=== PATIENT | male | born 1960 | race Caucasian/White ===

== ENCOUNTER 2016-12-07 01:42 | Emergency (ER) | payer MEDICARE, MEDICAID ==
--- NOTE | 2016-12-07 02:45 | ERNOTE ---
Medical Problem HPI - Narrative Date of Service: 12/07/16 - General Chief Complaint: Screening, Blood Pressure Time Seen by Provider: 12/07/16 02:44 Source: patient Exam Limitations: no limitations - Immun/Allergies/Home Medications Immunizations: IMMUNIZATION HX Immunizations Up to Date Yes History of Influenza Vaccine Yes Allergies/Adverse Reactions: Allergies ascorbic acid [From Tart Talbot] Allergy (Intermediate, Verified 03/07/16 22:37) Hives Great big boils all over his body Celery Seed [From Tart Talbot] Allergy (Intermediate, Verified 03/07/16 22:37) Hives Great big boils all over his body Celery Seed Extract [From Tart Talbot] Allergy (Intermediate, Verified 03/07/16 22:37) Hives Great big boils all over his body grape seed extract [From Tart Talbot] Allergy (Intermediate, Verified 03/07/16 22:37) Hives Great big boils all over his body Sour Talbot Extract [From Tart Talbot] Allergy (Intermediate, Verified 03/07/16 22:37) Hives Great big boils all over his body cherries Allergy (Severe, Uncoded 03/07/16 22:37) Other Home Medications: HOME MEDICATIONS Aspirin 325 mg PO DAILY 06/14/14 [Last Taken 06/14/14 18:15] Ferrous Sulfate [Iron] 325 mg PO DAILY 06/14/14 [Last Taken Unknown] Insulin Glargine,Hum.rec.anlog [Lantus] 80 unit SQ BID 06/14/14 [Last Taken ] Lisinopril [Zestril] 5 mg PO DAILY 06/14/14 [Last Taken 06/14/14] Metoprolol Succinate [Toprol Xl] 100 mg PO DAILY 06/14/14 [Last Taken Unknown] Nitroglycerin [Nitrostat] 0.4 mg SL Q5MIN PRN 06/14/14 [Last Taken 06/14/14 19: 00] Pantoprazole Sodium [Protonix] 40 mg PO BID 06/14/14 [Last Taken Unknown] amLODIPine BESYLATE [Norvasc] 10 mg PO DAILY 06/14/14 [Last Taken Unknown] [place] 3/Dha/Epa/Vitamin D3 [[place]-3 + Vitamin D3 Softgel] 1 each PO DAILY [Last Taken Unknown] Insulin NPH Hum/Reg Insulin Hm [Humulin 70-30] 70 unit SC TID 10/17/15 [Last Taken Unknown] oxyCODONE HCL/ACETAMINOPHEN [Percocet 5 MG/325 MG] 2 tab PO QID PRN 03/07/16 [ Last Taken Unknown] Ezetimibe [Zetia] 10 mg PO DAILY 12/07/16 [Last Taken Unknown] - History of Present History Narrative: Presents with c/o elevated blood pressure. Pt claims his blood pressure was 217 /90 at home. He called EMS out of concern. Denies any chest pain, but claims he felt very clammy. Review of Systems - Review of Systems Constitutional: Present: diaphoresis EYE: Present: no symptoms reported ENT: Present: no symptoms reported Respiratory: Present: no symptoms reported Cardiology: Present: no symptoms reported Gastrointestinal/Abdominal: Present: no symptoms reported Genitourinary: Present: no symptoms reported Musculoskeletal: Present: no symptoms reported Neurological: Present: no symptoms reported Endocrine: Present: no symptoms reported Hematologic/Lymphatic: Present: no symptoms reported Psych: Present: no symptoms reported All Other Systems: All systems neg except as marked - Patient's Past Medical History Patient History - Medical: Diabetes Type 2 Insulin Dependent, GERD, Obesity, Renal Failure Patient History - Cardiac/Respiratory: CHF, Hypertension Patient History - Cancer: No Hx of Cancer Patient History - Surgical Procedures: Colonoscopy, Other Patient History - Other: None - Family History Mother Family History - Medical: , Diabetes Type 2 Father Family History - Medical: , Diabetes Type 2 - Social History Living Situations: alone Abuse History: No History of abuse Psych History: No pertinent hx Does anyone smoke in the home?: Yes Smoking Status: Current every day smoker Have you smoked in the past 12 months: Yes Alcohol Use: none Drug Use: none - Immunizations Immunizations Up to Date: Yes History of Influenza Vaccine: Yes Physical Exam - Physical Exam General Appearance: Present: wd/wn, alert, no apparent distress, obese Neck: Present: normal inspection, nontender Respiratory: Present: no respiratory distress, normal breath sounds Cardiovascular/Chest: Present: regular rate, rhythm, no murmur, normal peripheral pulses Gastrointestinal/Abdominal: Present: normal bowel sounds, nontender, nondistended, soft, no organomegaly Neurological Exam: Present: oriented, normal mood/affect, no motor/sensory deficits Skin Exam: Present: normal color, warm/dry ED Progress - Results and Orders Patient's Lab Results:: I have reviewed the patient's lab results. - Vital Signs Patient's Vital Signs:: I have reviewed the patient's vital signs. Vital Signs: Vital Signs 12/07/16 12/07/16 01:47 02:06 Temperature 36.3 C L Pulse Rate 80 Respiratory 16 Rate Blood Pressure 176/84 176/84 O2 Sat by Pulse 95 Oximetry - Progress/Reassessment Chief Complaint: Screening, Blood Pressure Progress:: Improved Departure - Departure Clinical Impression: Essential hypertension Disposition: Home self-care Condition: Good Instructions: Hypertension, [id number] Referrals: Dwaine Darby MD [Primary Care Provider] -
[2016-12-07 03:21] LABS: Hematocrit 37.6 % (42.0-52.0); Hemoglobin 11.9 gm/dL (13.5-18.0); Mean Corpuscular Hemoglobin 28.5 pg (27-31); Mean Corpuscular Hgb Conc 31.6 g/dl (32-36); Mean Platelet Volume 9.9 fl (6.0-9.5); Neutrophil # 8.8 K/mm3 (1.3-6.0); Platelet Count 274 K/mm3 (150-450); Red Blood Count 4.18 M/mm3 (4.7-6.0); Red Cell Distribution Width 14.5 % (11.5-14.0)
[2016-12-07 03:39] LABS: ALT 18 U/L (19-67); AST 9 U/L (0-48); Albumin * 3.4 gm/dl (3.4-5.0); Alkaline Phosphatase * 118 U/L (50-170); Anion Gap 16.8 mmol/L (6.8-13.8); BUN/Creatinine Ratio 19.5 (9.0-21.6); Bilirubin, Total 0.2 mg/dL (0.0-1.1); Blood Urea Nitrogen 39 mg/dL (6-23); Ca. Corrected For Albumin 8.8 mg/dL (8.4-10.2); Calcium * 8.6 mg/dL (7.9-10.9); Carbon Dioxide 23.2 mmol/L (24-32.6); Chloride 102 mmol/L (97-106); Glucose * 301 mg/dL (70-110); Sodium 137 mmol/L (132-142); Total Protein 7.7 gm/dL (6.2-8.2)
[2016-12-07 03:40] LABS: Troponin I Less than 0.017 ng/ml (0.00-0.10)
--- OUTSIDE RECORDS SUMMARY | 2016-12-07 04:00 | XMS REPORT | Continuity of Care Document ---
:1960 Author Organization [facility] ([facility]) Address [address] [place] [address] Phone [phone] Care Team Providers Name Role Phone Dwaine Mejia Primary Care Provider [phone] Source Comments This disclosure is being made pursuant to the Care Everywhere program, applicable federal and state laws, and may not contain all informaitonavailable regarding this patient.[facility] ([facility]) Active Allergies and Adverse Reactions Allergen Noted Date Severity Reactions Comments [place] 03/14/2016 Urticaria (Hives) Current Medications Prescription Sig. Disp. Refills Start Date End Date Status amLODIPine 10 mg tablet Take 1 Tab by mouth 09/29/2013 Active daily aspirin 325 mg EC Take 1 Tab by mouth 11/25/2012 Active tablet daily furosemide (LASIX) 40 Take 1 Tab by mouth 2 11/14/2014 Active mg tablet times daily insulin glargine inject by 11/25/2012 Active (LANTUS) 100 unit/mL subcutaneous route as injection vial per insulin protocol ferrous sulfate (Iron 03/31/2013 Active (Ferrous Sulfate)) 325 mg (65 mg iron) tablet lisinopril 5 mg tablet Take 1 Tab by mouth 11/14/2014 Active daily metoPROLol succinate Take 1 Tab by mouth 12/12/2014 Active 100 mg XL tablet daily insulin nph-regular inject by 11/25/2012 Active (NovoLIN 70/30) 100 subcutaneous route as unit/mL injection vial per insulin protocol pantoprazole 40 mg EC Take 1 Tab by mouth 09/29/2013 Active tablet daily ranitidine 150 mg Take 1 Tab by mouth 2 09/29/2013 Active tablet times daily ergocalciferol (VITAMIN take 1 capsule by 03/31/2013 Active D2) 50,000 unit capsule oral route every day multivitamin with Take 1 tablet by Active minerals tablet mouth daily. nitroglycerin 0.[address] 0.4 mg under Active tablet the tongue every 5 minutes as needed. Maximum of 3 tablets in 15 minutes. omega-3 fatty acids 1 Take 2 g by mouth 2 Active gram capsule times daily. oxyCODONE-acetaminophen Take 1 tablet by Active 5-325 mg per tablet mouth every 4 hours as needed. Do NOT exceed 4000 mg of acetaminophen per 24 hours. acetaminophen 325 mg Take 325 mg by mouth Active tablet every 4 hours as needed. cholecalciferol Take 1,000 Units by Active (VITAMIN D3) 1,000 unit mouth daily. capsule ezetimibe (ZETIA) 10 mg Take 10 mg by mouth Active tablet daily. 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 Right Eye Left Eye Time To Recurrence: Time To Recurrence: Date VA (D cc) CMT Status Procedure VA (D cc) CMT Status Procedure Cmts 03/14/2016 20/20 cc 20/400 cc Ozurdex "[id number]. Also gentamicin ophthalmic solution OS 04/18/2016 20/25 cc 20/70-2 cc Avastin [id number] 05/23/2016 20/20-1 cc 20/60-2 cc Avastin [id number] 07/04/2016 20/25 +2 cc 20/70-1 +1 cc Avastin [id number] 08/07/2016 20/25-2 +3 cc 20/100 -1 cc Avastin [id number] 09/04/2016 20/30-2 +2 cc 20/100 -1 cc Avastin [id number] 10/03/2016 20/40-1 +2 cc 20/125 -1 cc Avastin [id number] 10/31/2016 20/60+1 cc Avastin [id number] 20/200 cc Eylea [id number] 11/28/2016 20/50-1 cc Avastin [id number] 20/400 cc Eylea [id number] IMO Import Utility Benign essential HTN 09/28/2014 Most Recent Encounters Date Type Specialty Providers Description 11/28/2016 Office Visit Ophthalmology - Chief Comp: Patient Specialty Reported Reason For Visit 11/28/2016 Office Visit Ophthalmology - Default, Other Dx: Diabetic macular Specialty Billg - Defo edema of both eyes with Simeon Elizondo moderate MD nonproliferative retinopathy associated with type 2 diabetes mellitus (Primary Dx) 10/31/2016 Office Visit Ophthalmology - Chief Comp: Patient Specialty Reported Reason For Visit 10/31/2016 Office Visit Ophthalmology - Sunday Lee, Dx: Diabetic macular Specialty MD edema of both eyes with moderate nonproliferative retinopathy associated with type 2 diabetes mellitus (Primary Dx) 10/03/2016 Office Visit Ophthalmology - Chief Comp: Patient Specialty Reported Reason For Visit 10/03/2016 Office Visit Ophthalmology - Default, Other Dx: Diabetic macular Specialty Billg - Defo edema of both eyes with Rita Fernando moderate MD nonproliferative retinopathy associated with type 2 diabetes mellitus (Primary Dx) Social History Tobacco Use Types Packs/Day Years Used Date Current Every Day Smoker Cigarettes 1.5 47 Smokeless Tobacco: Never Used Tobacco Cessation:Ready to Quit: No; Counseling Given: Yes Comments: Alcohol Use Drinks/Week oz/Week Comments No Plan of Care Date Type Specialty Providers Description 12/26/2016 Appointment Ophthalmology - Default, Other Chief Comp: Patient Specialty Billg - Defo Reported Reason For [address] [place] [address] [phone] (Fax) Health Maintenance Due Date Last Done Comments HCV Screening 1960 Hepatitis B Vaccine (1 of 3 - 1960 Primary Series) Tdap Vaccine 1969 DIABETIC: Cholesterol 1976 Diabetic: Hdl 1976 DIABETIC: Hemoglobin A1C 1976 Diabetic: Ldl 1976 DIABETIC: Microalbumin 1976 DIABETIC: Triglycerides 1976 MMR Vaccine 1976 Td Vaccine 1976 Pneumococcal Vaccine (1 of 1 1977 - PPSV23) Colonoscopy 12/26/2008 Prostate Cancer Screening 2008 DIABETIC: Foot Exam 04/25/2015 Influenza Vaccine: Seasonal 05/20/2016 (#1) DIABETIC: Retinal Eye Exam 11/28/2017 11/28/2016, Additional history exists 10/31/2016, 10/03/2016 Results from Last 3 Months EYE PROC - INTRAVITREAL INJECTION (11/28/2016 1:43 PM)Only the most recent of3 resultswithin the time period is included. Simeon Carballo MD 11/28/20161:43 PM [facility]itreous Injection Clinic Current Date: 11/28/2016 Subjective: Patel Blackwood is a 55 y.o. 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 History of Present Illness: 55 y.o. Male returns to injection clinic for continued treatment of DM2 with severe NPDR and DME s/p Avastin right eye; Eylea left eye Pt is unaware of any vision changes since last visit. Denies any eye pain, flashes or judith aters. 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 with type 2 diabetes mellitus 04/25/2015 Benign essential HTN 09/28/2014 Injection History: Refuses lid speculum Injection and Visual Acuity Log Date Injection OD VA sc VA cc Injection OS VA sc VA cc 11/28/2016 Yzhzzwl40/50-1 20/400 10/31/2016 Gaghqja74/60+1 20/200 10/03/2016 20/40-1 +2 20/125 -1 09/04/2016 20/30-2 +2 20/100 -1 08/07/2016 20/25-2 +3 20/100 -1 07/04/2016 20/25 +2 20/70-1 +1 05/23/2016 20/20-1 20/60-2 04/18/2016 20/25 20/70-2 03/28/2016 20/20-2 20/50-2 03/14/2016 20/20 20/400 Review of Systems: Negative except per HPI Objective: Base Eye Exam Visual Acuity (Snellen - Linear) Right Left Dist cc 20/50-1 20/400 Dist ph cc 20/40+1 NI Correction:Glasses Tonometry (Tonopen, 12:48 PM) Right Left Pressure 18 16 Neuro/Psych Oriented x3:Yes Mood/Affect:Normal Dilation Both eyes:1.0% Mydriacyl, 2.5% Phenylephrine @ 12:49 PM Slit Lamp and Fundus Exam Fundus Exam Right Left Disc no NVD no NVD C/D Ratio 0.3 0.3 Macula exudates in star, DBHs, mild central thickening Dense exudative ring, DBHs, diffuse thickening and SRF Vessels microvascular changes, tortuosity tortuosity, early venous beading Oct Macula 11/28/2016 OCT OD: CMT 474(486). Stage 1-2 PVD, 2+ central cysts w/ IRHF, stable, noSRF.OS: CMT 348 (320). Stage 1 PVD, temporal cysts extending into fovea w/IRHF, No SRF. Assessment / Plan: 1. DME, Severe NPDR from DM2, on insulin OD: First injection Avastin 10/31/16 (4w) - VA improved, stable OCT findings OS: last Ozurdex 03/14/16 ozurdex -OS bevacizumab (Avastin) last 10/03/2016 - first Eylea OS 10/31/16 (4w) - VA decreased (subjectively improved), stable to slightly worse OCT findings) 2. Ph[place] OU -observe Plan Today OD bevacizumab (Avastin), Eylea OS RTC 4-5wks injection clinic x2 more, then back to Dr. Lee Staff Involved Resident/Fellow without Staff (non-primary care) PROCEDURE: Intravitreal injection Medication Injected: Intravitreal injection of 2mg Eylea left eye and 1.25 mg Avastin right eye. 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 I was present for the entire procedure. Simeon Elizondo MD Vitreoretinal Surgery Fellow Department of Ophthalmology [facility] OCT MACULA (11/28/2016 1:04 PM)Only the most recent of2 resultswithin the time period is included. Narrative OCT OD: CMT 474(486). Stage 1-2 PVD, 2+ central cysts w/ IRHF, stable, no SRF. OS: CMT 348 (320). Stage 1 PVD, temporal cysts extending into fovea w/ IRHF, No SRF. OCT MAC[place]A LEFT EYE (10/03/2016 1:19 PM) Narrative OS 330 (477) slowly improving SRF, IRF
[2016-12-07 04:05] VITALS: BP 155/71
== END 2016-12-07 04:19 | disposition home or self-care (01) ==
LOC: ER 01:42
DX: I10 Essential (primary) hypertension (principal); F17.210 Nicotine dependence, cigarettes, uncomplicated; E11.9 Type 2 diabetes mellitus without complications; Z79.4 Long term (current) use of insulin; K21.9 Gastro-esophageal reflux disease without esophagitis; I50.9 Heart failure, unspecified

== ENCOUNTER 2017-02-18 19:19 | Emergency (ER) | payer MEDICARE, MEDICAID ==
--- OUTSIDE RECORDS SUMMARY | 2017-02-18 20:00 | XMS REPORT | Continuity of Care Document ---
:1960 Author Organization [facility] ([facility]) Address [address] [place] [place] [address] Phone [phone] Care Team Providers Name Role Phone Dwaine Mejia Primary Care Provider [phone] Source Comments This disclosure is being made pursuant to the Care Everywhere program, applicable federal and state laws, and may not contain all informaitonavailable regarding this patient.[facility] ([facility]) Active Allergies and Adverse Reactions Allergen Noted [...] Cmts 03/14/2016 20/20 cc 20/400 cc Ozurdex "[id number]. Also gentamicin ophthalmic solution OS 04/18/2016 20/25 cc 20/70-2 cc Avastin [id number] 05/23/2016 20/20-1 cc 20/60-2 cc Avastin [id number] 07/04/2016 20/25 +2 cc 20/70-1 +1 cc Avastin [id number] 08/07/2016 20/25-2 +3 cc 20/100 -1 cc Avastin [id number] 09/04/2016 20/30-2 +2 cc 20/100 -1 cc Avastin [id number] 10/03/2016 20/40-1 +2 cc 20/125 -1 cc Avastin [id number] 10/31/2016 20/60+1 cc Avastin [id number] 20/200 cc Eylea [id number] 11/28/2016 20/50-1 cc Avastin [id number] 20/400 cc Eylea [id number] 12/26/2016 20/30 cc Avastin [id number] 20/200 cc Eylea [id number] 01/23/2017 20/30-3 cc Eylea [id number] 20/150 cc Eylea [id number] IMO Import Utility Benign essential HTN 09/28/2014 Most Recent Encounters Date Type Specialty Providers Description 01/23/2017 Office Visit Ophthalmology - Chief Comp: Patient Specialty Reported Reason For Visit 01/23/2017 Office Visit Ophthalmology - Default, Other Dx: Diabetic macular Specialty Billg - Defo edema of both eyes with gualberto Silver MD nonproliferative retinopathy associated with type 2 diabetes mellitus (Primary Dx) 12/26/2016 Office Visit Ophthalmology - Chief Comp: Patient Specialty Reported Reason For Visit 12/26/2016 Office Visit Ophthalmology - Default, Other Dx: Diabetic macular Specialty Billg - Defo edema of both eyes with gualberto Silver MD nonproliferative Rita Fernando, retinopathy associated MD with type 2 diabetes mellitus (Primary Dx) 11/28/2016 Office Visit Ophthalmology - Chief Comp: [...] of Care Date Type Specialty Providers Description 03/06/2017 Appointment Ophthalmology - Default, Other Chief Comp: Patient Specialty Billg - Defo Reported Reason For [address] [place] [address] [phone] (Fax) Health Maintenance Due Date Last Done [...] Cancer Screening 2008 DIABETIC: Foot Exam 04/25/2015 DIABETIC: Retinal Eye Exam 01/23/2018 01/23/2017, Additional history exists 12/26/2016, 11/28/2016 Influenza Vaccine: Seasonal Completed Results from Last 3 Months EYE PROC - INTRAVITREAL INJECTION (01/23/2017 3:05 PM)Only the most recent of3 resultswithin the time period is included. Narrative Bernie Silver MD 01/23/20173:05 PM Retinavitreous Injection Clinic Current Date: 01/23/2017 Subjective: Patel Blackwood is a 56 y.o. 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 History of Present Illness: Patel Blackwood is a 56 y.o. male is here for Avastin OD and Eylea OS with OCT OU. 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 associated with type 2 diabetes mellitus 04/25/2015 Benign essential HTN 09/28/2014 Injection History: Refuses lid speculum Use injection room 1 for injection in Injection and Visual Acuity Log Date [facility] Injection OS VA cc VA ph[facility] 01/23/201720/30-3 NI20/150 NI 12/26/2016 Avastin 20/30 20/25+3 Eylea 20/200 11/28/2016 Avastin 20/50-1 20/40+1 Eylea 20/400 NI 10/31/2016 Avastin 20/60+1 20/30-2 Eylea 20/200 NI 10/03/201620/40-1 +2 20/30-2 Avastin 20/125 -1 NI -2 +2 NI Avastin 20/100 -1 NI -2 +3 NI Avastin 20/100 -1 NI +2 NI Avastin 20/70-1 +1 NI 05/23/20162020-1Avastin 20/60-2 20/60+2 06/30/221799/25 20/20-2 Avastin 20/70-2 NI 03/28/201620/20-2 20/50-2 NI 03/14/201620/20Ozurdex 20/400 Review of Systems: Negative except per HPI Objective: Base Eye Exam Visual Acuity (Snellen - Linear) Right Left Dist cc 20/30-3 20/150 Dist ph cc NI NI Correction:Glasses Tonometry (Tonopen, 2:18 PM) Right Left Pressure 19 22 Neuro/Psych Oriented x3:Yes Mood/Affect:Normal Dilation Both eyes:0.5% Mydriacyl, 2.5% Phenylephrine @ 2:19 PM Slit Lamp and Fundus Exam Fundus Exam Right Left Disc no NVD no NVD C/D Ratio 0.3 0.3 Macula exudates in star, DBHs, mild central thickening Dense circinate ring with very refractile HE deposit in fovea, DBHs, diffuse thickening and SRF Vessels microvascular changes, tortuosity tortuosity, early venous beading Oct Macula 01/23/2017 OD: 457 (468). Numerous exudates with essentially unchanged centerinvolving cystoid macular edemaOS: 304 (305). Large curcinate ring of hard exudates involving the fovea.There is SHRM in the fovea. Slightly improved macular edema in the temporal parafoveal but inferotemporally looks unchanged. Assessment / Plan: 1. DME, severe NPDR, on insulin (last hemoglobin A1c 7.3% 12/23/16) OD (better eye) : First injection Avastin 10/31/16, last 12/26/16 (4w). VA stable, however edema is not improving on Avastin x3, switch to Eylea today OS: last Ozurdex 03/14/16 ozurdex -OS bevacizumab (Avastin) last 10/03/2016 - first Eylea OS 10/31/16 (4w) last 12/26/16 (4wk) 2. Cataract OU Plan Today OD bevacizumab (Avastin), Eylea OS RTC 4wks OD Eylea OU x1 more visit thenback to Dr. Lee Staff Involved Resident/Fellow without Staff (non-primary care) PROCEDURE: Intravitreal injection Medication Injected:Eylea OU Pre-procedure Diagnosis:Diabetic macular edema of both eyes [...] I was present for the entire procedure. Bernie Silver MD Medical Retina Fellow Department of Ophthalmology and Visual Sciences [facility] OCT MACULA (01/23/2017 2:35 PM)Only the most recent of3 resultswithin the time period is included. Narrative OD: 457 (468). Numerous exudates with essentially unchanged center involving cystoid macular edema OS: 304 (305). Large curcinate ring of hard exudates involving the fovea. There is SHRM in the fovea. Slightly improved macular edema in the temporal parafoveal but inferotemporally looks unchanged.
[2017-02-18] MEDS ORDERED: CLOTRIMAZOLE 30 APPL TUBE TP ONE ×2 (20:01→20:14)
--- NOTE | 2017-02-18 20:10 | ERNOTE ---
Medical Problem HPI - Narrative Date of Service: 02/18/17 - General Chief Complaint: General Assessment Time Seen by Provider: 02/18/17 19:49 Source: patient, family, RN notes reviewed, old records Exam Limitations: other - poor historian - Immun/Allergies/Home Medications Immunizations: IMMUNIZATION HX Immunizations Up to Date Yes History of Influenza Vaccine Yes Allergies/Adverse Reactions: Allergies ascorbic acid [From Tart Talbot] Allergy (Intermediate, Verified 02/18/17 19:30) Hives Great big boils all over his body Celery Seed [From Tart Talbot] Allergy (Intermediate, Verified 02/18/17 19:30) Hives Great big boils all over his body Celery Seed Extract [From Tart Talbot] Allergy (Intermediate, Verified 02/18/17 19:30) Hives Great big boils all over his body grape seed extract [From Tart Talbot] Allergy (Intermediate, Verified 02/18/17 19:30) Hives Great big boils all over his body Sour Talbot Extract [From Tart Talbot] Allergy (Intermediate, Verified 02/18/17 19:30) Hives Great big boils all over his body cherries Allergy (Severe, Uncoded 02/18/17 19:30) Other Home Medications: HOME MEDICATIONS Aspirin 325 mg PO DAILY 06/14/14 [Last Taken 06/14/14 18:15] Ferrous Sulfate [Iron] 325 mg PO DAILY 06/14/14 [Last Taken Unknown] Insulin Glargine,Hum.rec.anlog [Lantus] 80 unit SQ BID 06/14/14 [Last Taken ] Lisinopril [Zestril] 5 mg PO DAILY 06/14/14 [Last Taken 06/14/14] Metoprolol Succinate [Toprol Xl] 100 mg PO DAILY 06/14/14 [Last Taken Unknown] Nitroglycerin [Nitrostat] 0.4 mg SL Q5MIN PRN 06/14/14 [Last Taken 06/14/14 19: 00] Pantoprazole Sodium [Protonix] 40 mg PO BID 06/14/14 [Last Taken Unknown] amLODIPine BESYLATE [Norvasc] 10 mg PO DAILY 06/14/14 [Last Taken Unknown] Parkman 3/Dha/Epa/Vitamin D3 [Parkman-3 + Vitamin D3 Softgel] 1 each PO DAILY [Last Taken Unknown] Insulin NPH Hum/Reg Insulin Hm [Humulin 70-30] 70 unit SC TID 10/17/15 [Last Taken Unknown] oxyCODONE HCL/ACETAMINOPHEN [Percocet 5 MG/325 MG] 2 tab PO QID PRN 03/07/16 [ Last Taken Unknown] Ezetimibe [Zetia] 10 mg PO DAILY 12/07/16 [Last Taken Unknown] - History of Present History Narrative: 56 y/o male brought to the ED by family for increasing size and increased drainage from an umbilical hernia that has been present for over a year. This was evaluated by his PCP last fall. He was prescribed an antibiotic ointment as there was some drainage present from an area of inflammation in the crevice surrounding the hernia. He denies any pain, however he has a very large pannus and reports having no sensation in the area due to diabetic neuropathy. He was seen by his PCP for a routine visit approximately 2 months ago. On review of the note from that visit, no mention was made of the hernia and his abdominal exam was documented as normal - without any hernia. Review of Systems - Review of Systems Constitutional: Absent: recent illness, fever, chills, malaise, decreased activity level EYE: Present: no symptoms reported ENT: Present: no symptoms reported Respiratory: Present: no symptoms reported Cardiology: Present: no symptoms reported Gastrointestinal/Abdominal: Absent: nausea, vomiting, abdominal pain, eating less, drinking less Genitourinary: Present: no symptoms reported Musculoskeletal: Present: no symptoms reported Skin: Present: lesions, lumps, change in color Neurological: Present: numbness, pre-existing deficit. Absent: headache, dizziness/light-headedness, weakness Endocrine: Present: no symptoms reported Hematologic/Lymphatic: Present: no symptoms reported Psych: Present: no symptoms reported - Patient's Past Medical History Patient History - Medical: Diabetes Type 2 Insulin Dependent, GERD, Obesity, Renal Failure Patient History - Cardiac/Respiratory: CHF, Hypertension Patient History - Cancer: No Hx of Cancer Patient History - Surgical Procedures: Colonoscopy, EGD, Hernia Repair Patient History - Other: None - Family History Mother Family History - Medical: , Diabetes Type 2 Father Family History - Medical: , Diabetes Type 2 - Social History Living Situations: home Abuse History: No History of abuse Psych History: No pertinent hx Does anyone smoke in the home?: Yes Smoking Status: Current every day smoker Cigarettes Packs Per Day: 2 Alcohol Use: rarely Drug Use: none - Immunizations Immunizations Up to Date: Yes History of Influenza Vaccine: Yes Physical Exam - Physical Exam General Appearance: Present: wd/wn, alert, no apparent distress, obese - morbid , severe Neck: Present: normal inspection, nontender, supple Respiratory: Present: no respiratory distress, no accessory muscle use, lungs clear, decreased breath sounds - d/t size Cardiovascular/Chest: Present: regular rate, rhythm, no murmur Gastrointestinal/Abdominal: Present: nontender, nondistended, soft, hernia - Large umbilical heria, reddish in color, soft and reducible Extremity Exam: Present: pedal edema, extremity edema Neurological Exam: Present: alert, oriented, normal mood/affect Skin Exam: Present: normal color, warm/dry, other - excoriated area in crevice surrounding umbilical hernia on left side, inflammed with serous drainage present ED Progress - Vital Signs Patient's Vital Signs:: I have reviewed the patient's vital signs. Vital Signs: Vital Signs 02/18/17 19:25 Temperature 36.6 C Pulse Rate 78 Respiratory 18 Rate Blood Pressure 162/71 O2 Sat by Pulse 96 Oximetry - Progress/Reassessment Chief Complaint: General Assessment Progress:: Improved Departure - Departure Clinical Impression: Intertriginous candidiasis Umbilical hernia Qualifiers: Obstruction and gangrene presence: without obstruction or gangrene Qualified Code(s): K42.9 - Umbilical hernia without obstruction or gangrene Disposition: Home Follow Up Needed Condition: Stable Instructions: Skin Yeast Infection Additional Instructions: Clean crevice around hernia twice a day with water - dry thoroughly Apply clotrimazole cream twice a day for 7 days Follow up with your doctor if no improvement Referrals: Dwaine Darby MD [Primary Care Provider] -
[2017-02-18 20:29] VITALS: BP 160/78
== END 2017-02-18 20:23 | disposition home or self-care (01) ==
LOC: ER 19:19
DX: B37.2 Candidiasis of skin and nail (principal); K42.9 Umbilical hernia without obstruction or gangrene; F17.200 Nicotine dependence, unspecified, uncomplicated; E11.9 Type 2 diabetes mellitus without complications; Z79.4 Long term (current) use of insulin; K21.9 Gastro-esophageal reflux disease without esophagitis; I10 Essential (primary) hypertension; I50.9 Heart failure, unspecified

== ENCOUNTER 2017-05-15 00:02 | Emergency (ER) | payer MEDICARE, MEDICAID ==
[2017-05-15] MEDS ORDERED: ONDANSETRON HCL/PF 2 MG/ML VIAL IV ONE (00:21)
[2017-05-15] MEDS ORDERED: NORMAL SALINE 1,000 ML IV ONE (00:22)
--- NOTE | 2017-05-15 00:24 | ERNOTE ---
Medical Problem HPI - General Chief Complaint: Nausea/Vomiting Time Seen by Provider: 05/15/17 00:15 Source: patient Exam Limitations: no limitations - Immun/Allergies/Home Medications Immunizations: IMMUNIZATION HX Immunizations Up to Date Yes History of Influenza Vaccine No Hx Pneumococcal Vaccination No Allergies/Adverse Reactions: Allergies ascorbic acid [From Tart Talbot] Allergy (Intermediate, Verified 05/15/17 00:13) Hives Great big boils all over his body Celery Seed [From Tart Talbot] Allergy (Intermediate, Verified 05/15/17 00:13) Hives Great big boils all over his body Celery Seed Extract [From Tart Talbot] Allergy (Intermediate, Verified 05/15/17 00:13) Hives Great big boils all over his body grape seed extract [From Tart Talbot] Allergy (Intermediate, Verified 05/15/17 00:13) Hives Great big boils all over his body Sour Talbot Extract [From Tart Talbot] Allergy (Intermediate, Verified 05/15/17 00:13) Hives Great big boils all over his body cherries Allergy (Severe, Uncoded 05/15/17 00:13) Other Home Medications: HOME MEDICATIONS Aspirin 325 mg PO DAILY 06/14/14 [Last Taken 06/14/14 18:15] Ferrous Sulfate [Iron] 65 mg PO DAILY 06/14/14 [Last Taken Unknown] Insulin Glargine,Hum.rec.anlog [Lantus] 80 unit SQ BID 06/14/14 [Last Taken ] Lisinopril [Zestril] 5 mg PO DAILY 06/14/14 [Last Taken 06/14/14] Metoprolol Succinate [Toprol Xl] 100 mg PO DAILY 06/14/14 [Last Taken Unknown] Nitroglycerin [Nitrostat] 0.4 mg SL Q5MIN PRN 06/14/14 [Last Taken 06/14/14 19: 00] Pantoprazole Sodium [Protonix] 40 mg PO BID 06/14/14 [Last Taken Unknown] amLODIPine BESYLATE [Norvasc] 10 mg PO DAILY 06/14/14 [Last Taken Unknown] oxyCODONE HCL/ACETAMINOPHEN [Percocet 5 MG/325 MG] 2 tab PO QID PRN 03/07/16 [ Last Taken Unknown] Ezetimibe [Zetia] 10 mg PO DAILY 12/07/16 [Last Taken Unknown] Gabapentin 300 mg PO TID 04/09/17 [Last Taken Unknown] Novolin 70/30 04/09/17 [Last Taken Unknown] Tylenol 325 mg PO QID PRN 04/09/17 [Last Taken Unknown] Vitamin D3 04/09/17 [Last Taken Unknown] Meclizine HCl [Antivert] 25 mg PO TID PRN #20 tab 05/15/17 [Last Taken Unknown] - History of Present History Narrative: onset of dizziness and vomiting at around 17:00 last night. Timing: getting worse Severity: moderate Modifying Factors - (Worsens): Present: eating Review of Systems - Review of Systems Constitutional: Absent: recent illness, fever, chills EYE: Absent: vision changes ENT: Absent: nose congestion, nasal drainage, sore throat Respiratory: Absent: shortness of breath, cough Cardiology: Absent: chest pain, palpitations Gastrointestinal/Abdominal: Present: See HPI Genitourinary: Present: no symptoms reported Musculoskeletal: Present: no symptoms reported Skin: Present: no symptoms reported Neurological: Present: dizziness/light-headedness. Absent: headache Endocrine: Absent: excessive sweating, flushing Hematologic/Lymphatic: Present: no symptoms reported Psych: Present: no symptoms reported - Patient's Past Medical History Patient History - Medical: Diabetes Type 2 Insulin Dependent, GERD, Obesity, Renal Failure Patient History - Cardiac/Respiratory: CHF, Hypertension Patient History - Cancer: No Hx of Cancer Patient History - Surgical Procedures: Colonoscopy, EGD, Hernia Repair Patient History - Other: None - Family History Mother Family History - Medical: , Diabetes Type 2 Father Family History - Medical: , Diabetes Type 2 - Social History Living Situations: home Abuse History: No History of abuse Psych History: No pertinent hx Does anyone smoke in the home?: Yes Smoking Status: Current every day smoker Have you smoked in the past 12 months: Yes Do you dip or chew tobacco: No Alcohol Use: none Drug Use: none - Immunizations Immunizations Up to Date: Yes Hx Pneumococcal Vaccination: No History of Influenza Vaccine: No Physical Exam - Physical Exam General Appearance: Present: wd/wn, alert, no apparent distress Head Exam: Present: normal inspection, no evidence of injury Ears, Nose, Throat: Present: normal ENT inspection, normal pharynx Neck: Present: normal inspection, nontender Respiratory: Present: no respiratory distress, no accessory muscle use, lungs clear Cardiovascular/Chest: Present: regular rate, rhythm Gastrointestinal/Abdominal: Present: nontender, nondistended Extremity Exam: Present: non-tender, no edema Neurological Exam: Present: alert, oriented, normal mood/affect Skin Exam: Present: normal color, warm/dry ED Progress - Results and Orders Patient's Lab Results:: I have reviewed the patient's lab results. Results and Orders: Laboratory Tests 05/15/17 05/15/17 05/15/17 00:21 00:47 01:29 WBC 14.2 H Hgb 12.5 L Hct 38.9 L Plt Count 302 Neutrophils % 75.1 H Sodium 139 Potassium 4.4 Chloride 103 Carbon Dioxide 26.0 Anion Gap 14.4 H BUN 26 H Creatinine 2.07 H Est GFR (Non-Af Amer) 35 L Random Glucose 203 H Calcium 8.7 Total Bilirubin 0.2 AST 7 ALT 14 L Alkaline Phosphatase 115 Total Protein 7.4 Albumin 3.3 L Urine Color Pale yellow Urine Appearance Clear Urine pH 6.0 Ur Specific Cook Sta 1.020 Urine Protein 100 H Urine Glucose (UA) 250 H Urine Ketones Negative Urine Blood 25 H Urine Nitrate Negative Urine Bilirubin Negative Prot Sulfosalicylic Acd 4+ H Urine Urobilinogen Normal Ur Leukocyte Esterase Negative Urine RBC 5-10 H Urine WBC 0-5 Ur Epithelial Cells 10-25 H Amorphous Sediment Few - 1+ Urine Bacteria None seen Urine Mucus Moderate - 2+ H Urine Culture Comments No culture indicated - Vital Signs Patient's Vital Signs:: I have reviewed the patient's vital signs. Vital Signs: Vital Signs 05/15/17 00:07 Temperature 36.6 C Pulse Rate 72 Respiratory 18 Rate Blood Pressure 186/82 O2 Sat by Pulse 95 Oximetry - X-Ray X-Ray #1 X-Ray: abdomen Interpretation: Interp. by me X-ray Comments: upright films only due to pt inability to lay flat. Limited by body habitus. Occasional a/f levels visible - CT/Ultrasound CT/Ultrasound Narrative: CT abd/pelvis: CAD calcifications granuloma within the LLL Thickening of the adrenal glands consistent with adenomatous hyperplasia fat-containing umbilical hernia normal appendix normal small bowel scattered stool in the colon - Progress/Reassessment Chief Complaint: Nausea/Vomiting Progress:: Improved Departure - Departure Clinical Impression: Vertigo Disposition: Home self-care Condition: Good Instructions: Vertigo, [id number] Referrals: Dwaine Darby MD [Primary Care Provider] - Prescriptions: Meclizine HCl [Antivert] 25 mg PO TID PRN #20 tab PRN Reason: dizziness
[2017-05-15] MEDS ORDERED: ONDANSETRON HCL/PF 2 MG/ML VIAL ONE (00:33)
[2017-05-15 00:40] LABS: Hematocrit 38.9 % (42.0-52.0); Hemoglobin 12.5 gm/dL (13.5-18.0); Mean Corpuscular Hemoglobin 28.3 pg (27-31); Mean Corpuscular Hgb Conc 32.1 g/dl (32-36); Mean Platelet Volume 9.2 fl (6.0-9.5); Neutrophil # 10.7 K/mm3 (1.3-6.0); Neutrophil % 75.1 % (42-75.0); Platelet Count 302 K/mm3 (150-450); Red Blood Count 4.42 M/mm3 (4.7-6.0); Red Cell Distribution Width 14.7 % (11.5-14.0); White Blood Count 14.2 K/mm3 (4.0-10.5)
[2017-05-15 00:57] LABS: Albumin * 3.3 gm/dl (3.4-5.0); Anion Gap 14.4 mmol/L (6.8-13.8); BUN/Creatinine Ratio 12.6 (9.0-21.6); Bilirubin, Total 0.2 mg/dL (0.0-1.1); Ca. Corrected For Albumin 8.9 mg/dL (8.4-10.2); Calcium * 8.7 mg/dL (7.9-10.9); Potassium 4.4 mmol/L (3.4-4.6); Total Protein 7.4 gm/dL (6.2-8.2)
[2017-05-15] MEDS ORDERED: MECLIZINE HCL 25 MG TABLET PO ONE (01:41)
[2017-05-15 01:42] LABS: Urine Appearance Clear; Urine Bilirubin Negative (NEGATIVE); Urine Blood 25 /ul (NEGATIVE); Urine Color Pale Yellow; Urine Ketone Negative (NEGATIVE); Urine Nitrite Negative (NEGATIVE); Urine Protein 100 mg/dL (NEGATIVE); Urine Urobilinogen Normal (NORMAL); Urine WBC 0-5 /hpf (0-5)
[2017-05-15 01:43] LABS: Urine Amorphous Sediment Few - 1+ (NONE-FEW); Urine Bacteria None Seen; Urine Mucus Moderate - 2+
[2017-05-15] MEDS ORDERED: MECLIZINE HCL 25 MG TABLET ONE (01:43)
[2017-05-15] MEDS ORDERED: DIATRIZOATE MEGLUMINE, SODIUM 30 ML BTL ONE (01:52)
[2017-05-15] MEDS ORDERED: DIATRIZOATE MEGLUMINE, SODIUM 30 ML BTL PO ONE (01:59)
[2017-05-15] MEDS ORDERED: ACETAMINOPHEN 500 MG TABLET PO ONE (03:29)
[2017-05-15 05:22] VITALS: BP 158/64
== END 2017-05-15 05:08 | disposition home or self-care (01) ==
LOC: ER 00:02
DX: R42 Dizziness and giddiness (principal); E11.9 Type 2 diabetes mellitus without complications; Z79.4 Long term (current) use of insulin; K21.9 Gastro-esophageal reflux disease without esophagitis; I50.9 Heart failure, unspecified; I10 Essential (primary) hypertension; F17.200 Nicotine dependence, unspecified, uncomplicated
CPT/HCPCS: 36415; 74020; 74176; 80053; 81001; 85025; 96374; 99284; J2405

== ENCOUNTER 2019-09-09 14:46 | Inpatient (IN) ==
--- NOTE | 2019-09-09 15:17 | ERNOTE ---
Chest Pain/Cardiac HPI Chief Complaint: Chest Pain Time Seen by Provider: 09/09/19 14:57 Source: patient Exam Limitations: no limitations Immunizations: IMMUNIZATION HX Immunizations Up to Date Yes History of Influenza Vaccine Yes Hx Pneumococcal Vaccination Yes Allergies/Adverse Reactions: Allergies ascorbic acid [From Tart Talbot] Allergy (Intermediate, Verified 09/09/19 17:37) Hives Great big boils all over his body Celery Seed [From Tart Talbot] Allergy (Intermediate, Verified 09/09/19 17:37) Hives Great big boils all over his body Celery Seed Extract [From Tart Talbot] Allergy (Intermediate, Verified 09/09/19 17:37) Hives Great big boils all over his body grape seed extract [From Tart Talbot] Allergy (Intermediate, Verified 09/09/19 17:37) Hives Great big boils all over his body Sour Talbot Extract [From Tart Talbot] Allergy (Intermediate, Verified 09/09/19 17:37) Hives Great big boils all over his body fenofibrate Adverse Reaction (Intermediate, Verified 09/09/19 17:37) muscle spasms rosuvastatin [From Crestor] Adverse Reaction (Intermediate, Verified 09/09/19 17:37) muscle spasms cherries Allergy (Severe, Uncoded 09/09/19 17:37) "big boils" Home Medications: HOME MEDICATIONS Aspirin 325 mg PO DAILY 06/14/14 [Last Taken 01/10/19] acetaminophen 325 mg tablet 325 mg PO .PRN PRN tab 06/11/18 [Last Taken Unknown] cholecalciferol (vitamin D3) 2,000 unit capsule 1,000 unit PO DAILY 06/11/18 [Last Taken 01/10/19] fish,bora,flax oils-om3,6,9no1 1,200 mg capsule 2 cap PO BID cap 06/11/18 [Last Taken 01/10/19] lancets 33 gauge See Dose Instructions .ROUTE .MEDSUPPLY #100 ea 06/11/18 [Last Taken 01/10/19] multivitamin 1 tab PO DAILY 06/11/18 [Last Taken 01/10/19] Docusate Sodium 100 mg PO DAILY PRN 12/23/18 [Last Taken Unknown] Ranitidine HCl [Heartburn Relief] 150 mg PO DAILY PRN 12/23/18 [Last Taken 01/10/19] sucralfate 100 mg/mL oral suspension See Rx Instructions .ROUTE .COMPLEX #420 unspecified 03/29/19 [Last Taken Unknown] meclizine 25 mg chewable tablet 25 mg PO TID PRN #90 tab 07/14/19 [Last Taken Unknown] albuterol sulfate 90 mcg/actuation aerosol inhaler 2 inh IH QID PRN #18 g 08/11/19 [Last Taken Unknown] alprazolam 2 mg tablet 2 mg PO ONCE #1 tab 08/11/19 [Last Taken Unknown] clopidogrel 75 mg tablet 75 mg PO DAILY 08/11/19 [Last Taken Unknown] furosemide 40 mg tablet 40 mg PO BID #180 tab 08/11/19 [Last Taken Unknown] insulin glargine 100 unit/mL subcutaneous solution 80 unit SUBCUT QAM #30 ml 08/11/19 [Last Taken Unknown] insulin human U-100 NPH-regulr 70-30 mix 100 unit/mL subcutaneous susp See Rx Instructions .ROUTE .COMPLEX #10 unspecified 08/11/19 [Last Taken Unknown] insulin syringe-needle U-100 1 mL 31 gauge x 5/16" See Rx Instructions .ROUTE .MEDSUPPLY #100 ea 08/11/19 [Last Taken Unknown] isosorbide mononitrate 60 mg tablet,extended release 24 hr 60 mg PO QAM PRN #90 tab 08/11/19 [Last Taken Unknown] lisinopril 10 mg tablet 10 mg PO DAILY #90 tab 08/11/19 [Last Taken Unknown] metoprolol succinate 100 mg tablet,extended release 24 hr See Rx Instructions .ROUTE .COMPLEX #90 tablet 08/11/19 [Last Taken Unknown] morphine 60 mg tablet, crush resistant, extended release 60 mg PO Q12H #60 ea 08/11/19 [Last Taken Unknown] nitroglycerin 0.4 mg sublingual tablet 0.4 mg SL Q5MIN PRN #25 tab 08/11/19 [Last Taken Unknown] pantoprazole 40 mg tablet,delayed release 40 mg PO DAILY #90 tab 08/11/19 [Last Taken Unknown] pravastatin 10 mg tablet See Rx Instructions PO DAILY #90 tab 08/11/19 [Last Taken Unknown] blood sugar diagnostic See Dose Instructions .ROUTE .MEDSUPPLY #100 ea 08/12/19 [Last Taken Unknown] lancets See Rx Instructions .ROUTE .MEDSUPPLY #100 ea 08/12/19 [Last Taken Unknown] Large wheelchair 0 .ROUTE .MEDSUPPLY #1 ea 09/01/19 [Last Taken Unknown] Narrative: Patient presents with 2 days of left sided chest pain for which she has taken numerous cellular nitro as well as isosorbide. He denies any diaphoresis, although he does have chronic shortness of breath. He feels as though the pain goes into his left armpit as well. Overall he rates the pain is moderate although is currently not in any pain. Timing: intermittent Severity/Quality: moderate Location: left chest Chest Pain Radiation: other - Left axilla Activities at Onset: none Modifying Factors - Improves: Present: nitroglycerin Modifying Factors - Worsens: Present: nothing Nitro Today/Relief: provided at home - Numerous sublingual nitro over the past 2 days Aspirin Treatment Today: 81 mg x 1 Associated Symptoms: Present: denies symptoms Prior Chest Pain/Cardiac Workup: Reports: heart attack Prior Treatment: Reports: recently seen, treated by physician, recently hospitalized Review of Systems - Review of Systems Constitutional: Present: See HPI EYE: Present: no symptoms reported ENT: Present: no symptoms reported Respiratory: Present: no symptoms reported Cardiology: Present: See HPI Gastrointestinal/Abdominal: Present: no symptoms reported Genitourinary: Present: no symptoms reported Musculoskeletal: Present: no symptoms reported Skin: Present: no symptoms reported Neurological: Present: no symptoms reported Endocrine: Present: no symptoms reported Hematologic/Lymphatic: Present: no symptoms reported Psych: Present: no symptoms reported Medical History (Last Reviewed 09/09/19 @ 17:34 by Bri Hamlin RN) Morbid obesity with body mass index (BMI) greater than or equal to 50 (Chronic) Patel is lost about 70 pounds. Lung mass (Acute) Chronic kidney disease (CKD), stage IV (severe) (Chronic) Wound, open, breast (Acute) Dysuria-frequency syndrome (Acute) Morbid obesity with BMI of 50.0-59.9, adult (Chronic) Vascular insufficiency of limb (Acute) Left lower extremity Ischemic pain of left foot (Acute) Diabetic autonomic neuropathy associated with type 2 diabetes mellitus (Chronic) Feet are now anesthetic. Degenerative arthritis (Chronic) DDD (degenerative disc disease), lumbar (Chronic) Low back pain (Chronic) ESRD (end stage renal disease) (Chronic) Muscle spasm (Resolved) Possibly from the statin. Acute serous otitis media of left ear (Chronic) Has had decreased hearing and intermittent pain in the L ear for the past 1 month Morbid obesity with BMI of 60.0-69.9, adult (Chronic) IDDM (insulin dependent diabetes mellitus) (Chronic) Chronic pain syndrome (Chronic) BMI 60.0-69.9, adult (Chronic) Left breast abscess (Resolved) Original I&D on 06/12/2018 BMI 60.0-69.9, adult (Acute) Severe low back pain (Chronic) Essential hypertension (Chronic) Anemia Onset Date: Unknown Aortic valve sclerosis Onset Date: Unknown Cardiomegaly Onset Date: Unknown Cardiomyopathy Onset Date: Unknown Current tobacco use 1 ppd cigars Macular edema Moderate non-proliferative diabetic retinopathy No history of alcohol use Proteinuria Onset Date: ~03/29/13 Pseudophakia Onset Date: Unknown Sleep apnea Verrucae vulgaris Onset Date: Unknown CAD (coronary artery disease) Onset Date: Unknown Chronic GERD Onset Date: Unknown Chronic renal failure, stage 3 (moderate) Onset Date: Unknown Congestive heart failure (CHF) Onset Date: ~06/27/13 Diabetes mellitus Onset Date: ~04/04/17 Heart disease Onset Date: Unknown Hyperlipidemia due to dietary fat intake Onset Date: Unknown Hypertension Onset Date: Unknown Surgical History: Surgical History (Last Reviewed 09/09/19 @ 17:35 by Bri Hamlin RN) History of bunionectomy Right History of arthroplasty of right ankle History of esophagogastroduodenoscopy Onset Date: 04/19/13 [place]; clotest negative. Gastritis History of incision and drainage Onset Date: 01/11/19 01/11/19 [place]-left breast abscess Hx of arthroscopy of left knee Onset Date: Unknown x2 Hx of cataract extraction Onset Date: ~2017 bilateral Hx of colonoscopy with polypectomy Onset Date: 09/09/12 - sigmoid diverticulosis, healing anal fissure, normal colonic mucosa. Recheck in 10 years Hx of hernia repair As an ; Right inguinal hernia Family History: Family History (Last Reviewed 09/09/19 @ 17:36 by Bri Hamlin RN) Father , age 67-colon cancer ca Diabetes Cancer Colon-dx age 65 and lung cancer Mother , age 73-unsure of cause Diabetes Hypertension Uncle Cancer (Paternal) Colon Cancer Grandmother Cancer (Paternal) Colon cancer Grandfather Cancer (Maternal) Colon Cancer Aunt Cancer (Paternal) Lung Cancer Brother Diabetes Hypertension Brother Alive and well Brother Alive and well Brother Alive and well Social History: (Last Reviewed 09/09/19 @ 17:37 by Bri Hamlin RN) Social History: Marital status: Single lives independently: Yes household members: none current occupational status: disabled Highest education level completed: 11th grade Service: No Tobacco: Smoking Status: Current every day smoker Smoking cigarettes per day: 1 Alcohol: alcohol intake: never Substance Use: substance use type: does not use Dietary Habits: caffeine: Yes Personal Safety: victim of physical abuse: No victim of emotional abuse: No Physical Exam - Physical Exam General Appearance: Present: wd/wn, alert, no apparent distress Head Exam: Present: normal inspection, no evidence of injury Eye Exam: Normal inspection: bilateral, PERRL: bilateral Ears, Nose, Throat: Present: normal ENT inspection, H, normal pharynx Neck: Present: normal inspection, nontender Respiratory: Present: no respiratory distress, normal breath sounds, no accessory muscle use, chest nontender, lungs clear Cardiovascular/Chest: Present: regular rate, rhythm, no murmur, normal peripheral pulses Gastrointestinal/Abdominal: Present: normal bowel sounds, nontender, nondistended, soft, no organomegaly, other - Morbidly obese Rectal Exam: Present: deferred Male Genitals Exam: Present: deferred Back Exam: Present: normal inspection, normal range of motion Extremity Exam: Present: normal inspection, non-tender, no edema, normal range of motion Neurological Exam: Present: alert, oriented, normal mood/affect Skin Exam: Present: normal color, warm/dry Lymphatic Exam: Present: no adenopathy Progress - Results and Orders Patient's Lab Results:: I have reviewed the patient's lab results. - Vital Signs Patient's Vital Signs:: I have reviewed the patient's vital signs. Vital Signs: Vital Signs 09/09/19 14:50 Temperature 36.6 C Pulse Rate 90 Respiratory Rate 16 Blood Pressure 95/44 O2 Sat by Pulse Oximetry 99 - EKG EKG #1 EKG: other - Inferior Q waves - X-Ray X-Ray #1 X-Ray: chest Interpretation: Reviewed by me - Progress/Reassessment Chief Complaint: Chest Pain Plan - Plan Plan: I discussed the patient's condition at length with his family doctor, Dr. Ryan Isidro, and he agrees to put him in for now to replace his blood and do serial troponins. Unclear etiology whether the profound diarrhea he has had over the past 48 hours and he stated that was not normal for him. However it did appear that the stools were somewhat maroonish in color. I am wondering if he possibly has upper GI or proximal colon bleed secondary to his NSAID and Plavix usage. He was a patient in [facility] and they declined to do do a PTCA on him due to the right lung mass. He had a brief episode where his blood pressure dropped somewhat but he responded nicely to some IV fluid. I am reluctant to give him too much fluid until we get some blood on board as that may dilute what his RBC count lower than it already is. Departure Clinical Impression: Symptomatic anemia, Intermittent left-sided chest pain Diarrhea Qualifiers: Diarrhea type: unspecified type Qualified Code(s): R19.7 - Diarrhea, unspecified - Departure Disposition: Still a patient Condition: Fair Critical Care Note - Critical Care Note Total Time (mins): 35 Comments: Patient required a 500 cc bolus of normal saline to stabilize his blood pressure and he will need at least 2 units of packed red blood cells to try to stabilize his hemoglobin.
[2019-09-09 15:19] LABS: Mean Cell Volume 76.1 fl (78-100); Mean Corpuscular Hemoglobin 23.4 pg (27-31); Mean Corpuscular Hgb Conc 30.8 g/dl (32-36); Mean Platelet Volume 8.9 fl (8-11.3); Neutrophil # 8.7 K/mm3 (1.3-6.0); Neutrophil % 76.5 % (42-75.0); Platelet Count 329 K/mm3 (150-450); Red Blood Count 2.22 M/mm3 (4.7-6.0); Red Cell Distribution Width 20.1 % (11.5-14.0); White Blood Count 11.4 K/mm3 (4.0-10.5)
[2019-09-09 15:21] LABS: Hemoglobin 5.2 gm/dL (13.5-18.0)
[2019-09-09 15:22] LABS: Hematocrit 16.9 % (42.0-52.0)
[2019-09-09 15:36] LABS: Albumin * 2.8 gm/dl (3.4-5.0); BUN/Creatinine Ratio 19.3 (9.0-21.6); Bilirubin, Total 0.1 mg/dL (0.0-1.1); Ca. Corrected For Albumin 8.8 mg/dL (8.4-10.2); Calcium * 8.2 mg/dL (7.9-10.9); Carbon Dioxide 22.8 mmol/L (24-32.6); Magnesium 1.6 mg/dL (1.2-2.8); Potassium 4.8 mmol/L (3.4-4.6); Total Protein 6.7 gm/dL (6.2-8.2)
[2019-09-09 15:38] LABS: Troponin I 0.821 ng/mL (0.00-0.10)
[2019-09-09] MEDS ORDERED: NORMAL SALINE 1,000 ML IV ONE (15:59)
[2019-09-09 16:05] LABS: Prothrombin Time (Patient) 10.3 Seconds (9.1-10.7)
[2019-09-09 16:06] LABS: INR 1.04 INR (0.92-1.08); Partial Thrombolplastin Time 24.4 Seconds (24-32)
[2019-09-09] MEDS ORDERED: PANTOPRAZOLE SODIUM 40 MG/100 ML PIGGYBACK IV ONE (16:17)
[2019-09-09] MEDS ORDERED: ISOSORBIDE MONONITRATE 60 MG TAB.SR.24H PO PRN (18:39)
[2019-09-09] MEDS ORDERED: DOCUSATE SODIUM 100 MG CAPSULE PO PRN (18:39)
[2019-09-09] MEDS ORDERED: ALBUTEROL SULFATE 200 PUFF INHALER IH PRN (18:39)
[2019-09-09] MEDS ORDERED: NICOTINE 21 MG PATC TD SCH (18:45)
[2019-09-09] MEDS ORDERED: FUROSEMIDE 10 MG/ML VIAL IV ONE (18:46)
[2019-09-09] MEDS ORDERED: HUM INSULIN NPH/REG INSULIN HM 100 UNIT/ML VIAL SC SCH (19:00)
--- NOTE | 2019-09-09 19:05 | HP ---
Chief Complaint - Chief Complaint Date of Service: 09/09/19 Time of Service: 18:52 Chief Complaint: Chest pain, shortness of breath, lightheadedness History of Present Illness: Patel Blackwood is a 58-year-old morbidly obese male who had 2 episodes of significant chest pressure and heaviness today. The second time he became very lightheaded and felt nearly syncopal. He had taken nitroglycerin sublingual with each episode of chest discomfort. It went away the first time but was not going away the second and so he came to the hospital to be evaluated. His hemoglobin is 5.2 g and is probably the reason for his worsening angina and lightheadedness. He has been typed and crossed for 2 units of packed red cells and I will add a 3rd unit. He will receive furosemide 20 mg IV after the first unit and will have a hemoglobin and hematocrit checked 2 hours after the second unit. Patel has a litany of comorbid conditions including insulin-dependent diabetes mellitus, coronary artery disease, recent AMI, COPD, lung mass. The cause of his anemia is uncertain at this time. Medical History (Last Reviewed 09/09/19 @ 17:34 by Bri Hamlin RN) Morbid obesity with body mass index (BMI) greater than or equal to 50 (Chronic) Patel is lost about 70 pounds. Lung mass (Acute) Chronic kidney disease (CKD), stage IV (severe) (Chronic) Wound, open, breast (Acute) Dysuria-frequency syndrome (Acute) Morbid obesity with BMI of 50.0-59.9, adult (Chronic) Vascular insufficiency of limb (Acute) Left lower extremity Ischemic pain of left foot (Acute) Diabetic autonomic neuropathy associated with type 2 diabetes mellitus (Chronic) Feet are now anesthetic. Degenerative arthritis (Chronic) DDD (degenerative disc disease), lumbar (Chronic) Low back pain (Chronic) ESRD (end stage renal disease) (Chronic) Muscle spasm (Resolved) Possibly from the statin. Acute serous otitis media of left ear (Chronic) Has had decreased hearing and intermittent pain in the L ear for the past 1 month Morbid obesity with BMI of 60.0-69.9, adult (Chronic) IDDM (insulin dependent diabetes mellitus) (Chronic) Chronic pain syndrome (Chronic) BMI 60.0-69.9, adult (Chronic) Left breast abscess (Resolved) Original I&D on 06/12/2018 BMI 60.0-69.9, adult (Acute) Severe low back pain (Chronic) Essential hypertension (Chronic) Anemia Onset Date: Unknown Aortic valve sclerosis Onset Date: Unknown Cardiomegaly Onset Date: Unknown Cardiomyopathy Onset Date: Unknown Current tobacco use 1 ppd cigars Macular edema Moderate non-proliferative diabetic retinopathy No history of alcohol use Proteinuria Onset Date: ~03/29/13 Pseudophakia Onset Date: Unknown Sleep apnea Verrucae vulgaris Onset Date: Unknown CAD (coronary artery disease) Onset Date: Unknown Chronic GERD Onset Date: Unknown Chronic renal failure, stage 3 (moderate) Onset Date: Unknown Congestive heart failure (CHF) Onset Date: ~06/27/13 Diabetes mellitus Onset Date: ~04/04/17 Heart disease Onset Date: Unknown Hyperlipidemia due to dietary fat intake Onset Date: Unknown Hypertension Onset Date: Unknown Surgical History: Surgical History (Last Reviewed 09/09/19 @ 17:35 by Bri Hamlin RN) History of bunionectomy Right History of arthroplasty of right ankle History of esophagogastroduodenoscopy Onset Date: 04/19/13 [place]; clotest negative. Gastritis History of incision and drainage Onset Date: 01/11/19 01/11/19 Kayden-left breast abscess Hx of arthroscopy of left knee Onset Date: Unknown x2 Hx of cataract extraction Onset Date: ~2017 bilateral Hx of colonoscopy with polypectomy Onset Date: 09/09/12 - sigmoid diverticulosis, healing anal fissure, normal colonic mucosa. Recheck in 10 years Hx of hernia repair As an ; Right inguinal hernia Family History: Family History (Last Reviewed 09/09/19 @ 17:36 by Bri Hamlin RN) Father , age 67-colon cancer ca Diabetes Cancer Colon-dx age 65 and lung cancer Mother , age 73-unsure of cause Diabetes Hypertension Uncle Cancer (Paternal) Colon Cancer Grandmother Cancer (Paternal) Colon cancer Grandfather Cancer (Maternal) Colon Cancer Aunt Cancer (Paternal) Lung Cancer Brother Diabetes Hypertension Brother Alive and well Brother Alive and well Brother Alive and well Social History: (Last Reviewed 09/09/19 @ 17:37 by Bri Hamlin RN) Social History: Marital status: Single lives independently: Yes household members: none current occupational status: disabled Highest education level completed: 11th grade Service: No Tobacco: Smoking Status: Current every day smoker Smoking cigarettes per day: 1 Alcohol: alcohol intake: never Substance Use: substance use type: does not use Dietary Habits: caffeine: Yes Personal Safety: victim of physical abuse: No victim of emotional abuse: No Review Of Systems (GEN) - Review of Systems Generalized/Overall Review: Present: Weakness EENTM: Present: No Symptoms Reported Respiratory: Present: No Symptoms Reported Cardiac: Present: Chest Pain, Edema, Other - Lightheadedness Abdominal: Present: No Symptoms Reported Genitourinary: Present: No Symptoms Reported Musculoskeletal: Present: Back Pain - Chronic low back pain Neurological: Present: No Symptoms Reported, Tingling, Weakness, Other - Diabetic neuropathy Skin: Present: No Symptoms Reported, Change in Color - The skin over the legs below the knees is dark. Endocrine: Present: No Symptoms Reported Immunizations: IMMUNIZATION HX Immunizations Up to Date Yes History of Influenza Vaccine Yes Hx Pneumococcal Vaccination Yes Allergies/Adverse Reactions: Allergies Allergy/AdvReac Type Severity Reaction Status Date / Time ascorbic acid Allergy Intermediate Hives Verified 09/09/19 17:37 [From Tart Talbot] Celery Seed Allergy Intermediate Hives Verified 09/09/19 17:37 [From Tart Talbot] Celery Seed Extract Allergy Intermediate Hives Verified 09/09/19 17:37 [From Tart Talbot] grape seed extract Allergy Intermediate Hives Verified 09/09/19 17:37 [From Tart Talbot] Sour Talbot Extract Allergy Intermediate Hives Verified 09/09/19 17:37 [From Tart Talbot] fenofibrate AdvReac Intermediate muscle Verified 09/09/19 17:37 spasms rosuvastatin [From Crestor] AdvReac Intermediate muscle Verified 09/09/19 17:37 spasms cherries Allergy Severe "big boils" Uncoded 09/09/19 17:37 Home Medications: HOME MEDICATIONS Aspirin 325 mg PO DAILY 06/14/14 [Last Taken 01/10/19] cholecalciferol (vitamin D3) 2,000 unit capsule 1,000 unit PO DAILY 06/11/18 [Last Taken 01/10/19] lancets 33 gauge See Dose Instructions .ROUTE .MEDSUPPLY #100 ea 06/11/18 [Last Taken 01/10/19] multivitamin 1 tab PO DAILY 06/11/18 [Last Taken 01/10/19] Docusate Sodium 100 mg PO DAILY PRN 12/23/18 [Last Taken Unknown] Ranitidine HCl [Heartburn Relief] 150 mg PO DAILY PRN 12/23/18 [Last Taken 01/10/19] meclizine 25 mg chewable tablet 25 mg PO TID PRN #90 tab 07/14/19 [Last Taken Unknown] albuterol sulfate 90 mcg/actuation aerosol inhaler 2 inh IH QID PRN #18 g 08/11/19 [Last Taken Unknown] clopidogrel 75 mg tablet 75 mg PO DAILY 08/11/19 [Last Taken Unknown] furosemide 40 mg tablet 40 mg PO BID #180 tab 08/11/19 [Last Taken Unknown] insulin glargine 100 unit/mL subcutaneous solution 80 unit SUBCUT QAM #30 ml 08/11/19 [Last Taken Unknown] insulin syringe-needle U-100 1 mL 31 gauge x 5/16" See Rx Instructions .ROUTE .MEDSUPPLY #100 ea 08/11/19 [Last Taken Unknown] isosorbide mononitrate 60 mg tablet,extended release 24 hr 60 mg PO QAM PRN #90 tab 08/11/19 [Last Taken Unknown] lisinopril 10 mg tablet 10 mg PO DAILY #90 tab 08/11/19 [Last Taken Unknown] morphine 60 mg tablet, crush resistant, extended release 60 mg PO Q12H #60 ea 08/11/19 [Last Taken Unknown] nitroglycerin 0.4 mg sublingual tablet 0.4 mg SL Q5MIN PRN #25 tab 08/11/19 [Last Taken Unknown] pantoprazole 40 mg tablet,delayed release 40 mg PO DAILY #90 tab 08/11/19 [Last Taken Unknown] blood sugar diagnostic See Dose Instructions .ROUTE .MEDSUPPLY #100 ea 08/12/19 [Last Taken Unknown] lancets See Rx Instructions .ROUTE .MEDSUPPLY #100 ea 08/12/19 [Last Taken Unknown] Large wheelchair 0 .ROUTE .MEDSUPPLY #1 ea 09/01/19 [Last Taken Unknown] Acetaminophen [Non-Aspirin Extra Strength] 500 mg PO Q6H PRN 09/09/19 [Last Taken Unknown] Insulin NPH Hum/Reg Insulin Hm [Novolin 70/30 U-100 Insulin] 30 units SC BIDWM 09/09/19 [Last Taken Unknown] Loperamide HCl [Imodium] 2 mg PO DAILY PRN 09/09/19 [Last Taken Unknown] Metoprolol Succinate [Toprol Xl] 100 mg PO DAILY 09/09/19 [Last Taken Unknown] Pravastatin Sodium 10 mg PO DAILY 09/09/19 [Last Taken Unknown] Sucralfate [Carafate] 10 ml PO BID PRN 09/09/19 [Last Taken Unknown] Exam - Exam Vital Signs: Vital Signs - Last Taken Temp 36.1 C 09/09/19 17:46 Pulse 75 09/09/19 17:46 Resp 16 09/09/19 17:46 BP 93/45 09/09/19 17:46 Pulse Ox 99 09/09/19 17:46 Constitutional: Present: Alert, Oriented x3, Cooperative, Well developed, Well nourished, Morbidly obese ENT Exam: Present: normal ENT inspection, hearing grossly normal, pharynx normal, TMs normal Eye Exam: bilateral eye: normal inspection, PERRL, EOMI Neck: Present: non-tender, full range of motion, supple, normal inspection Back Exam: Present: normal inspection, no CVA tenderness, no vertebral tenderness Breasts: Present: Nontender. Absent: Discharge, Breast complaints Respiratory: Present: chest non-tender, lungs clear, normal breath sounds, no respiratory distress, no accessory muscle use Cardiovascular/Chest: Present: normal peripheral pulses, gallop/S4, extra beats. 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70 H (0.001-0.429) % Immature Gran # (Auto) 0.08 H (0.000-0.0310) K/mm3 Neutrophils % 76.5 H (42-75.0) % Lymphocytes % 12.8 L (20-51) % Neutrophils # 8.7 H (1.3-6.0) K/mm3 Lymphocytes # 1.46 L (1.5-3.5) k/mm3 Percent Retic 3.0 H (0.4-1.8) % Immature Retic Fraction 35.9 H (2.3-13.4) % Retic Hgb Content 20.5 L (29-35) pg Potassium 4.8 H (3.4-4.6) mmol/L Carbon Dioxide 22.8 L (24-32.6) mmol/L Anion Gap 16.0 H (6.8-13.8) mmol/L BUN 62 H D (6-23) mg/dL Creatinine 3.21 H D (0.4-1.4) mg/dL Est GFR (Non-Af Amer) 21 L D (60-130) mL/min Random Glucose 210 H (70-110) mg/dL ALT 11 L (19-67) U/L Troponin I 0.821 H* (0.00-0.10) ng/mL Albumin 2.8 L (3.4-5.0) gm/dl Stool Occult Blood Crossmatch 09/09/19 09/09/19 Range/Units 16:00 16:15 WBC (4.0-10.5) K/mm3 RBC (4.7-6.0) M/mm3 Hgb (13.5-18.0) gm/dL Hct (42.0-52.0) % MCV (78-100) fl MCH (27-31) pg MCHC (32-36) g/dl RDW (11.5-14.0) % Immature Gran % (Auto) (0.001-0.429) % Immature Gran # (Auto) (0.000-0.0310) K/mm3 Neutrophils % (42-75.0) % Lymphocytes % (20-51) % Neutrophils # (1.3-6.0) K/mm3 Lymphocytes # (1.5-3.5) k/mm3 Percent Retic (0.4-1.8) % Immature Retic Fraction (2.3-13.4) % Retic Hgb Content (29-35) pg Potassium (3.4-4.6) mmol/L Carbon Dioxide (24-32.6) mmol/L Anion Gap (6.8-13.8) mmol/L BUN (6-23) mg/dL Creatinine (0.4-1.4) mg/dL Est GFR (Non-Af Amer) (60-130) mL/min Random Glucose (70-110) mg/dL ALT (19-67) U/L Troponin I (0.00-0.10) ng/mL Albumin (3.4-5.0) gm/dl Stool Occult Blood Positive H Crossmatch See Detail Laboratory Results WBC 11.4 K/mm3 (4.0-10.5) H 09/09/19 15:14 RBC 2.22 M/mm3 (4.7-6.0) L 09/09/19 15:14 Hgb 5.2 gm/dL (13.5-18.0) L* D 09/09/19 15:14 Hct 16.9 % (42.0-52.0) L* D 09/09/19 15:14 MCV 76.1 fl (78-100) L 09/09/19 15:14 MCH 23.4 pg (27-31) L 09/09/19 15:14 MCHC 30.8 g/dl (32-36) L 09/09/19 15:14 RDW 20.1 % (11.5-14.0) H 09/09/19 15:14 Plt Count 329 K/mm3 (150-450) 09/09/19 15:14 MPV 8.9 fl (8-11.3) 09/09/19 15:14 Immature Gran % (Auto) 0.70 % (0.001-0.429) H 09/09/19 15:14 Immature Gran # (Auto) 0.08 K/mm3 (0.000-0.0310) H 09/09/19 15:14 Neutrophils % 76.5 % (42-75.0) H 09/09/19 15:14 Lymphocytes % 12.8 % (20-51) L 09/09/19 15:14 Monocytes % 7.3 % (0.0-9) 09/09/19 15:14 Eosinophils % 2.4 % (0.0-3.0) 09/09/19 15:14 Basophils % 0.3 % (0.0-1.0) 09/09/19 15:14 Nucleated RBC % 0.0 k/mm3 (0-1) 09/09/19 15:14 Neutrophils # 8.7 K/mm3 (1.3-6.0) H 09/09/19 15:14 Lymphocytes # 1.46 k/mm3 (1.5-3.5) L 09/09/19 15:14 Monocytes # 0.8 k/mm3 (0.0-1.0) 09/09/19 15:14 Eosinophils # 0.3 k/mm3 (0.0-0.7) 09/09/19 15:14 Absolute Basophils 0.0 k/mm3 (0.0-0.1) 09/09/19 15:14 Absolute Retic 0.0682 09/09/19 15:15 Percent Retic 3.0 % (0.4-1.8) H 09/09/19 15:15 Immature Retic Fraction 35.9 % (2.3-13.4) H 09/09/19 15:15 Retic Hgb Content 20.5 pg (29-35) L 09/09/19 15:15 PT 10.3 Seconds (9.1-10.7) 09/09/19 15:14 INR (Anticoag Therapy) 1.04 INR (0.92-1.08) 09/09/19 15:14 PTT (Bertie) 24.4 Seconds (24-32) 09/09/19 15:14 Sodium 137 mmol/L (132-142) 09/09/19 15:14 Plasma Sodium 139 mmol/L (130-142) 09/09/19 15:14 Potassium 4.8 mmol/L (3.4-4.6) H 09/09/19 15:14 Chloride 103 mmol/L (97-106) 09/09/19 15:14 Carbon Dioxide 22.8 mmol/L (24-32.6) L 09/09/19 15:14 Anion Gap 16.0 mmol/L (6.8-13.8) H 09/09/19 15:14 BUN 62 mg/dL (6-23) H D 09/09/19 15:14 Creatinine 3.21 mg/dL (0.4-1.4) H D 09/09/19 15:14 Est GFR (Non-Af Amer) 21 mL/min (60-130) L D 09/09/19 15:14 BUN/Creatinine Ratio 19.3 (9.0-21.6) 09/09/19 15:14 Random Glucose 210 mg/dL (70-110) H 09/09/19 15:14 Calcium 8.2 mg/dL (7.9-10.9) 09/09/19 15:14 Calcium Adj for Albumin 8.8 mg/dL (8.4-10.2) 09/09/19 15:14 Magnesium 1.6 mg/dL (1.2-2.8) 09/09/19 15:14 Total Bilirubin 0.1 mg/dL (0.0-1.1) 09/09/19 15:14 AST 7 U/L (0-48) 09/09/19 15:14 ALT 11 U/L (19-67) L 09/09/19 15:14 Alkaline Phosphatase 83 U/L (50-170) 09/09/19 15:14 Troponin I 0.821 ng/mL (0.00-0.10) H* 09/09/19 15:14 Total Protein 6.7 gm/dL (6.2-8.2) 09/09/19 15:14 Albumin 2.8 gm/dl (3.4-5.0) L 09/09/19 15:14 Stool Occult Blood Positive H 09/09/19 16:15 Blood Type O Positive 09/09/19 16:00 Antibody Screen Negative 09/09/19 16:00 Crossmatch See Detail 09/09/19 16:00 Assessment/Plan - Narrative Narrative: 1. Transfuse 2 units of packed red blood cells initially and then recheck h emoglobin hematocrit 2 hours later. If less than 9 g I will infuse 1/3 unit. 2. Allow nicotine patch 3. Ordered consistent carb diet 4. Continuous cardiac monitoring 5. Repeat troponin tomorrow morning and routine morning lab 6. Oxygen to keep O2 sat greater than 92% and he is to wear it anytime he is having any chest discomfort - Assessment/Plan (1) Symptomatic anemia Problem: Acute (2) Chest pain Problem: Acute Qualifiers: Chest pain type: chest pain due to myocardial ischemia Ischemic chest pain type: unstable angina pectoris Qualified Code(s): I20.0 - Unstable angina (3) Lung mass Problem: Chronic (4) Myocardial infarct Problem: Acute Qualifiers: Myocardial infarction type: unspecified Involved coronary artery: unspecified coronary artery Qualified Code(s): I21.9 - Acute myocardial infarction, unspecified (5) Morbid obesity with BMI of 50.0-59.9, adult Problem: Chronic (6) ESRD (end stage renal disease) Problem: Chronic (7) IDDM (insulin dependent diabetes mellitus) Problem: Chronic (8) Chronic pain syndrome Problem: Chronic (9) Severe low back pain Problem: Chronic (10) Near syncope Problem: Acute
[2019-09-09] MEDS: MORPHINE SULFATE 60 MG TABLET.SA PO SCH (19:38)
[2019-09-09] MEDS ORDERED: HUM INSULIN NPH/REG INSULIN HM 100 UNIT/ML VIAL SC ONE (19:43)
[2019-09-10 00:29] LABS: Hematocrit 20.5 % (42.0-52.0); Hemoglobin 6.4 gm/dL (13.5-18.0)
[2019-09-10] MEDS: ACETAMINOPHEN 500 MG TABLET PO PRN ×2 (02:43→14:10)
[2019-09-10 05:18] LABS: Hematocrit 21.8 % (42.0-52.0); Hemoglobin 6.9 gm/dL (13.5-18.0)
[2019-09-10] MEDS ORDERED: ALBUTEROL SULFATE 2.5 MG/0.5 ML VIAL.NEB IH PRN (06:51)
[2019-09-10] MEDS ORDERED: PANTOPRAZOLE SODIUM 40 MG TABLET.EC PO SCH (07:00)
[2019-09-10] MEDS: MORPHINE SULFATE 60 MG TABLET.SA PO SCH (07:39)
[2019-09-10] MEDS ORDERED: CLOPIDOGREL BISULFATE 75 MG TABLET PO SCH (09:00)
[2019-09-10] MEDS ORDERED: INSULIN GLARGINE,HUM.REC.ANLOG 100 UNITS/ML VIAL SC SCH (09:00)
[2019-09-10] MEDS ORDERED: ASPIRIN 325 MG TABLET.DR PO SCH (09:00)
[2019-09-10] MEDS ORDERED: HUM INSULIN NPH/REG INSULIN HM 100 UNIT/ML VIAL SC SCH (09:35)
[2019-09-10 10:18] LABS: Anion Gap 17.5 mmol/L (6.8-13.8); BUN/Creatinine Ratio 19.3 (9.0-21.6); Bilirubin, Total 0.3 mg/dL (0.0-1.1); Ca. Corrected For Albumin 8.8 mg/dL (8.4-10.2); Calcium * 8.3 mg/dL (7.9-10.9); Hematocrit 24.3 % (42.0-52.0); Mean Cell Volume 80.2 fl (78-100); Mean Corpuscular Hemoglobin 25.4 pg (27-31); Mean Corpuscular Hgb Conc 31.7 g/dl (32-36); Mean Platelet Volume 9.4 fl (8-11.3); Neutrophil # 11.6 K/mm3 (1.3-6.0); Neutrophil % 82.1 % (42-75.0); Platelet Count 355 K/mm3 (150-450); Potassium 4.5 mmol/L (3.4-4.6); Red Blood Count 3.03 M/mm3 (4.7-6.0); Red Cell Distribution Width 19.1 % (11.5-14.0); White Blood Count 14.2 K/mm3 (4.0-10.5)
[2019-09-10 10:32] LABS: Hemoglobin 7.7 gm/dL (13.5-18.0)
[2019-09-10 13:11] LABS: BUN/Creatinine Ratio 21.3 (9.0-21.6); Bilirubin Direct 0.1 mg/dL (0.0-0.3); Bilirubin, Total 0.3 mg/dL (0.0-1.1); Bilirubin,Indirect 0.2 mg/dL (0.1-0.7)
[2019-09-10] MEDS: NITROGLYCERIN 0.4 MG/TAB BTL SL PRN ×2 (14:33→14:38)
[2019-09-10 15:04] LABS: Bilirubin Direct 0.1 mg/dL (0.0-0.3); Bilirubin, Total 0.1 mg/dL (0.0-1.1); Blood Urea Nitrogen 62 mg/dL (6-23)
[2019-09-10 15:05] LABS: Bilirubin Direct 0.1 mg/dL (0.0-0.3); Bilirubin, Total 0.3 mg/dL (0.0-1.1); Blood Urea Nitrogen 61 mg/dL (6-23)
[2019-09-10] MEDS ORDERED: NORMAL SALINE 500 ML IV ONE (15:08)
--- NOTE | 2019-09-10 15:14 | DS ---
Transfer Discharge Summary - Diagnosis(s)/Problems (1) Symptomatic anemia Problem: Acute (2) Chest pain Problem: Acute (3) Lung mass Problem: Chronic (4) Myocardial infarct Problem: Acute (5) Morbid obesity with BMI of 50.0-59.9, adult Problem: Chronic (6) ESRD (end stage renal disease) Problem: Chronic (7) IDDM (insulin dependent diabetes mellitus) Problem: Chronic (8) Chronic pain syndrome Problem: Chronic (9) Severe low back pain Problem: Chronic (10) Near syncope Problem: Acute - Course Description of Stay: Patel Blackwood is a 58-year-old morbidly obese male who was admitted with marked shortness of breath and weakness. His evaluation in the emergency room revealed a hemoglobin of 5.2 g. A Hemoccult stool done in the emergency room was positive. Patel states that he had had some diarrhea and that it appeared to be bright red blood in the stool 2 days ago. He has a host of comorbid conditions including coronary artery disease, previous MIs of both the right coronary and the LAD, cardiomegaly, episodic hypotension, COPD, current everyday smoker, IDDM, stage IV chronic kidney disease, morbid obesity, and lung cancer. Since admission he has received 4 units of packed red blood cells. His hemoglobin improved to 7.7 g after 4 units of PRBCs were infused. His initial MCV was 76.1 and RDW of 20.1 strongly suggesting an iron deficiency anemia. He is chronically anemic from that and from his stage IV chronic kidney disease and then has had an acute GI bleed on top of that. Platelets are normal. He has also received 1 unit of fresh frozen plasma. About mcc through administration of that unit he developed some hypotension but this was a similar event that he had had this morning before receiving FFP. Once we started the second unit of FFP he has developed chest pressure and heaviness radiating through to the shoulder blades and is having difficulty with swallowing. He is not dyspneic and other than his usual asthma lung sounds were not changed. His O2 sat is normal however I did put him on oxygen because of the chest discomfort. His troponin was 0.821 and repeated this morning was 0.865. His usual baseline is 0.6. His last MRI was about a month ago. He was in [place] but they decided not to do any stenting because he would have to be on aspirin and Plavix afterwards and he is in need of a lung biopsy. He has a right pleural based lung mass that is about 4 cm in diameter and there is a smaller satellite lesion. There is also an adrenal gland mass that may be a met as well. I have discontinued the second unit of fresh frozen plasma. Dr. Coker called and stated that should he develop any respiratory difficulty the FFP should be stopped as FFP can activate host white cells in the lungs and cause acute dyspnea and a drop in O2 saturation. Because of this constellation of symptoms and comorbid conditions I believe he needs to be in ICU where he can have the benefit of specialty care including cardiology, pulmonology, oncology, and nephrology. Procedures Performed: none - Results and Findings Results and Findings: Laboratory Results - last 24 hr 09/09/19 09/09/19 09/09/19 15:14 15:14 15:14 WBC 11.4 H RBC 2.22 L Hgb 5.2 L* D Hct 16.9 L* D MCV 76.1 L MCH 23.4 L MCHC 30.8 L RDW 20.1 H Plt Count 329 MPV 8.9 Immature Gran % (Auto) 0.70 H Immature Gran # (Auto) 0.08 H Neutrophils % 76.5 H Lymphocytes % 12.8 L Monocytes % 7.3 Eosinophils % 2.4 Basophils % 0.3 Nucleated RBC % 0.0 Neutrophils # 8.7 H Lymphocytes # 1.46 L Monocytes # 0.8 Eosinophils # 0.3 Absolute Basophils 0.0 Absolute Retic Percent Retic Immature Retic Fraction Retic Hgb Content PT 10.3 INR (Anticoag Therapy) 1.04 PTT (Liza) 24.4 Sodium 137 Plasma Sodium 139 Potassium 4.8 H Chloride 103 Carbon Dioxide 22.8 L Anion Gap 16.0 H BUN 62 H D Creatinine 3.21 H D Est GFR (Non-Af Amer) 21 L D BUN/Creatinine Ratio 19.3 Random Glucose 210 H Lactic Acid, Venous Calcium 8.2 Calcium Adj for Albumin 8.8 Magnesium 1.6 Total Bilirubin 0.1 Direct Bilirubin Indirect Bilirubin AST 7 ALT 11 L Alkaline Phosphatase 83 Troponin I 0.821 H* Total Protein 6.7 Albumin 2.8 L Stool Occult Blood Blood Type Antibody Screen Crossmatch 09/09/19 09/09/19 09/09/19 15:15 16:00 16:15 WBC RBC Hgb Hct MCV MCH MCHC RDW Plt Count MPV Immature Gran % (Auto) Immature Gran # (Auto) Neutrophils % Lymphocytes % Monocytes % Eosinophils % Basophils % Nucleated RBC % Neutrophils # Lymphocytes # Monocytes # Eosinophils # Absolute Basophils Absolute Retic 0.0682 Percent Retic 3.0 H Immature Retic Fraction 35.9 H Retic Hgb Content 20.5 L PT INR (Anticoag Therapy) PTT (Liza) Sodium Plasma Sodium Potassium Chloride Carbon Dioxide Anion Gap BUN Creatinine Est GFR (Non-Af Amer) BUN/Creatinine Ratio Random Glucose Lactic Acid, Venous Calcium Calcium Adj for Albumin Magnesium Total Bilirubin Direct Bilirubin Indirect Bilirubin AST ALT Alkaline Phosphatase Troponin I Total Protein Albumin Stool Occult Blood Positive H Blood Type O Positive Antibody Screen Negative Crossmatch See Detail 09/10/19 09/10/19 09/10/19 00:20 05:10 06:42 WBC RBC Hgb 6.4 L* D 6.9 L* Hct 20.5 L* D 21.8 L* MCV MCH MCHC RDW Plt Count MPV Immature Gran % (Auto) Immature Gran # (Auto) Neutrophils % Lymphocytes % Monocytes % Eosinophils % Basophils % Nucleated RBC % Neutrophils # Lymphocytes # Monocytes # Eosinophils # Absolute Basophils Absolute Retic Percent Retic Immature Retic Fraction Retic Hgb Content PT INR (Anticoag Therapy) PTT (Liza) Sodium Plasma Sodium Potassium Chloride Carbon Dioxide Anion Gap BUN Creatinine Est GFR (Non-Af Amer) BUN/Creatinine Ratio Random Glucose Lactic Acid, Venous Calcium Calcium Adj for Albumin Magnesium Total Bilirubin Direct Bilirubin Indirect Bilirubin AST ALT Alkaline Phosphatase Troponin I 0.865 H* Total Protein Albumin Stool Occult Blood Blood Type Antibody Screen Crossmatch 09/10/19 09/10/19 09/10/19 09:55 09:56 09:56 WBC 14.2 H D RBC 3.03 L Hgb 7.7 L* Hct 24.3 L MCV 80.2 MCH 25.4 L MCHC 31.7 L RDW 19.1 H Plt Count 355 MPV 9.4 Immature Gran % (Auto) 0.60 H Immature Gran # (Auto) 0.09 H Neutrophils % 82.1 H Lymphocytes % 8.1 L Monocytes % 7.9 Eosinophils % 1.1 Basophils % 0.2 Nucleated RBC % 0.0 Neutrophils # 11.6 H Lymphocytes # 1.15 L Monocytes # 1.1 H Eosinophils # 0.2 Absolute Basophils 0.0 Absolute Retic Percent Retic Immature Retic Fraction Retic Hgb Content PT INR (Anticoag Therapy) PTT (Liza) Sodium 135 Plasma Sodium 137 Potassium 4.5 Chloride 99 Carbon Dioxide 23.0 L Anion Gap 17.5 H BUN 59 H Creatinine 3.05 H Est GFR (Non-Af Amer) 22 L BUN/Creatinine Ratio 19.3 Random Glucose 214 H Lactic Acid, Venous 2.1 H Calcium 8.3 Calcium Adj for Albumin 8.8 Magnesium Total Bilirubin 0.3 Direct Bilirubin Indirect Bilirubin AST 11 ALT 11 L Alkaline Phosphatase 84 Troponin I Total Protein 7.0 Albumin 3.0 L Stool Occult Blood Blood Type Antibody Screen Crossmatch 09/10/19 12:56 WBC RBC Hgb Hct MCV MCH MCHC RDW Plt Count MPV Immature Gran % (Auto) Immature Gran # (Auto) Neutrophils % Lymphocytes % Monocytes % Eosinophils % Basophils % Nucleated RBC % Neutrophils # Lymphocytes # Monocytes # Eosinophils # Absolute Basophils Absolute Retic Percent Retic Immature Retic Fraction Retic Hgb Content PT INR (Anticoag Therapy) PTT ([place]) Sodium Plasma Sodium Potassium Chloride Carbon Dioxide Anion Gap BUN 61 H Creatinine 2.87 H Est GFR (Non-Af Amer) 24 L BUN/Creatinine Ratio 21.3 Random Glucose Lactic Acid, Venous Calcium Calcium Adj for Albumin Magnesium Total Bilirubin 0.3 Direct Bilirubin 0.1 Indirect Bilirubin 0.2 AST ALT Alkaline Phosphatase Troponin I Total Protein Albumin Stool Occult Blood Blood Type Antibody Screen Crossmatch - Medications Medications: Active Medications Acetaminophen (Tylenol) 500 mg PO Q6H PRN PRN Reason: Pain Stop: 10/09/19 18:40 Last Admin: 09/10/19 14:10 Dose: 500 mg Documented by: Aspirin (Aspirin Enteric Coated) 325 mg PO DAILY [facility] Stop: 10/10/19 09:01 Last Admin: 09/10/19 09:24 Dose: Not Given Documented by: Clopidogrel Bisulfate (Plavix) 75 mg PO DAILY [facility] Stop: 10/10/19 09:01 Last Admin: 09/10/19 09:24 Dose: Not Given Documented by: Insulin Glargine (Lantus) 80 units SC QAM [facility] Stop: 10/10/19 09:01 Last Admin: 09/10/19 10:04 Dose: 80 units Documented by: Insulin Human Isoph/Insulin Regular (Humulin 70-30) 30 unit SC BIDWM [facility] Stop: 10/09/19 19:01 Last Admin: 09/10/19 10:04 Dose: 30 unit Documented by: Morphine Sulfate (Ms Contin) 60 mg PO Q12H [facility] Stop: 10/09/19 19:01 Last Admin: 09/10/19 07:39 Dose: 60 mg Documented by: Nicotine (Nicoderm) 21 mg TD Q24H [facility] Stop: 10/09/19 18:46 Last Admin: 09/09/19 19:38 Dose: 21 mg Documented by: Nitroglycerin (Nitrostat) 0.4 mg SL Q5MIN PRN PRN Reason: Chest Pain Stop: 10/09/19 18:40 Last Admin: 09/10/19 14:38 Dose: 0.4 mg Documented by: Pantoprazole Sodium (Protonix) 40 mg PO 0700 [facility] Stop: 10/10/19 07:01 Last Admin: 09/10/19 07:48 Dose: 40 mg Documented by: Discontinued Medications Furosemide (Lasix) 20 mg IV ONCE ONE Stop: 09/09/19 18:47 Last Admin: 09/09/19 20:21 Dose: 20 mg Documented by: Sodium Chloride (Sodium Chloride 0.9%) 1,000 mls @ 999 mls/hr IV .Q1H1M ONE Stop: 09/09/19 16:59 Last Infusion: 09/09/19 18:15 Dose: Infused Documented by: Pantoprazole Sodium (Protonix Iv Er Piggyback) 40 mg in 100 mls @ 400 mls/hr IV ONCE ONE Stop: 09/09/19 16:31 Last Infusion: 09/09/19 16:37 Dose: Infused Documented by: Insulin Human Isoph/Insulin Regular (Humulin 70-30) 30 unit SC BIDWM [facility] Stop: 10/09/19 19:01 Last Admin: 09/09/19 20:21 Dose: 30 unit Documented by: - Disposition Disposition: Short Term Hospital Inpatient Condition: Serious Discharge Date: 09/10/19 Discharge Time: 15:06
[2019-09-10] MEDS ORDERED: NORMAL SALINE 500 ML IV PRN (15:17)
[2019-09-10 16:40] LABS: Urine Bilirubin Negative (NEGATIVE); Urine Blood Negative /ul (NEGATIVE); Urine Ketone Negative (NEGATIVE); Urine Nitrite Negative (NEGATIVE); Urine Protein Negative (NEGATIVE); Urine Specific Gravity 1.015 SP.GR. (1.005-1.030); Urine Urobilinogen Normal (NORMAL); Urine pH 5.5 pH (5.0-7.0)
[2019-09-10 16:41] LABS: Urine Blood Negative /ul (NEGATIVE); Urine RBC None Seen /hpf (0-5)
[2019-09-10 16:48] LABS: Urine Color Yellow
[2019-09-10 16:49] LABS: Urine Appearance Clear (CLEAR); Urine Bacteria None Seen; Urine RBC None Seen /hpf (0-5); Urine WBC None Seen /hpf (0-5)
[2019-09-10 18:49] VITALS: BP 130/62
== END 2019-09-10 17:00 | disposition short-term general hospital (02) | DRG 811 ==
LOC: ER 14:46 → MS 14:46
PROVIDERS: ADMIT Family Medicine; ATTEND Family Medicine
DX: I95.89 Other hypotension; D50.9 Iron deficiency anemia, unspecified; N18.6 End stage renal disease; J44.9 Chronic obstructive pulmonary disease, unspecified; Z79.4 Long term (current) use of insulin; I12.0 Hypertensive chronic kidney disease with stage 5 chronic kidney disease or end stage renal disease; E11.22 Type 2 diabetes mellitus with diabetic chronic kidney disease; R19.5 Other fecal abnormalities; R55 Syncope and collapse; F17.210 Nicotine dependence, cigarettes, uncomplicated; R91.8 Other nonspecific abnormal finding of lung field; G89.4 Chronic pain syndrome; I25.10 Atherosclerotic heart disease of native coronary artery without angina pectoris; I21.4 Non-ST elevation (NSTEMI) myocardial infarction; I25.119 Atherosclerotic heart disease of native coronary artery with unspecified angina pectoris; Z68.43 Body mass index [BMI] 50.0-59.9, adult; M54.5 Low back pain; I42.9 Cardiomyopathy, unspecified; K92.2 Gastrointestinal hemorrhage, unspecified; E66.01 Morbid (severe) obesity due to excess calories
CPT/HCPCS: 36415; 71020; 71046; 80053; 81001; 82247; 82248; 82272; 82565; 83605; 83735; 84484; 84520; 85014; 85018; 85025; 85045; 85610; 85730; 86078; 86850; 93005; 96361; 96365; 96375; 99291; P9016

== ENCOUNTER 2019-10-30 01:38 | Inpatient (IN) ==
[2019-10-30] MEDS ORDERED: ALBUTEROL SULFATE/IPRATROPIUM 3 ML NEBU IH ONE ×2 (01:46→01:58)
[2019-10-30] MEDS ORDERED: NITROGLYCERIN 0.4 MG/TAB BTL SL ONE (01:54)
--- NOTE | 2019-10-30 01:57 | ERNOTE ---
Dyspnea - General Presenting Symptoms: shortness of breath - and chest pain Time Seen by Provider: 10/30/19 01:47 Source: patient, EMS Exam Limitations: clinical condition - Immun/Allergies/Home Medications Immunizations: IMMUNIZATION HX Immunizations Up to Date Yes History of Influenza Vaccine Yes Hx Pneumococcal Vaccination Yes Allergies/Adverse Reactions: Allergies ascorbic acid [From Tart Talbot] Allergy (Intermediate, Verified 10/30/19 04:52) Hives Great big boils all over his body Celery Seed Extract [From Tart Talbot] Allergy (Intermediate, Verified 10/30/19 04:52) Hives Great big boils all over his body grape seed extract [From Tart Talbot] Allergy (Intermediate, Verified 10/30/19 04:52) Hives Great big boils all over his body Sour [place]bot Extract [From Tart Talbot] Allergy (Intermediate, Verified 10/30/19 04:52) Hives Great big boils all over his body fenofibrate Adverse Reaction (Intermediate, Verified 10/30/19 04:52) muscle spasms rosuvastatin [From Crestor] Adverse Reaction (Intermediate, Verified 10/30/19 04:52) muscle spasms cherries Allergy (Severe, Uncoded 10/30/19 04:52) "big boils" Home Medications: HOME MEDICATIONS Aspirin 325 mg PO DAILY 06/14/14 [Last Taken 01/10/19] multivitamin 1 tab PO DAILY 06/11/18 [Last Taken 01/10/19] Docusate Sodium 100 mg PO DAILY PRN 12/23/18 [Last Taken Unknown] Ranitidine HCl [Heartburn Relief] 150 mg PO DAILY PRN 12/23/18 [Last Taken 0 01/10/19] meclizine 25 mg chewable tablet 25 mg PO TID PRN #90 tab 07/14/19 [Last Taken Unknown] albuterol sulfate 90 mcg/actuation aerosol inhaler 2 inh IH QID PRN #18 g 08/11/19 [Last Taken Unknown] furosemide 40 mg tablet 40 mg PO BID #180 tab 08/11/19 [Last Taken Unknown] insulin glargine 100 unit/mL subcutaneous solution 80 unit SUBCUT QAM #30 ml 08/11/19 [Last Taken Unknown] isosorbide mononitrate 60 mg tablet,extended release 24 hr 60 mg PO QAM PRN #90 tab 08/11/19 [Last Taken Unknown] nitroglycerin 0.4 mg sublingual tablet 0.4 mg SL Q5MIN PRN #25 tab 08/11/19 [Last Taken Unknown] pantoprazole 40 mg tablet,delayed release 40 mg PO DAILY #90 tab 08/11/19 [Last Taken Unknown] Acetaminophen [Non-Aspirin Extra Strength] 500 mg PO Q6H PRN 09/09/19 [Last Taken Unknown] Insulin NPH Hum/Reg Insulin Hm [Novolin 70/30 U-100 Insulin] 30 units SC BIDWM 09/09/19 [Last Taken Unknown] Loperamide HCl [Imodium] 2 mg PO DAILY PRN 09/09/19 [Last Taken Unknown] Metoprolol Succinate [Toprol Xl] 100 mg PO . AT 6 AM 09/09/19 [Last Taken Unknown] Pravastatin Sodium 10 mg PO .AT 2 PM 09/09/19 [Last Taken Unknown] Sucralfate [Carafate] 10 ml PO BID PRN 09/09/19 [Last Taken Unknown] Albuterol Sulfate 2.5 mg INHALATION QID #30 vial.neb 09/13/19 [Last Taken Unknown] Ferrous Sulfate 325 mg PO DAILY #30 tablet. 09/13/19 [Last Taken Unknown] large manual wheelchair 0 .ROUTE .MEDSUPPLY #1 ea 10/26/19 [Last Taken Unknown] umeclidinium 62.5 mcg-vilanterol 25 mcg/actuation powdr for inhalation 1 inh IH DAILY ea 10/26/19 [Last Taken Unknown] Lisinopril [Prinivil] 10 mg PO .AT 2PM 10/30/19 [Last Taken Unknown] Morphine Sulfate [Arymo ER] 60 mg PO Q12H PRN 10/30/19 [Last Taken Unknown] - History of Present Illness Narrative: Patient states he woke approximately 1 hour [employer]ISHMENT [employer]IST with chest pain and shortness of breath. He did take an albuterol nebulized treatment without much benefit and EMS did give him one nitro. Upon arrival patient is resistant to have a mask on his face but has oxygen saturations in the 78-80% range. we convinced him to hold the non-rebreather close to his face but he will not hold it in contact with his face. Severity: severe Treatment GARNISHMENT SPECIALIST: by patient - albuterol, paramedics, nitroglycerin Frequency of episodes: Reports: frequent episodes Modifying Factors - (Improves): Reports: oxygen Modifying Factors (Worsens): Reports: lying down Review of Systems - Review of Systems Constitutional: Absent: recent illness, fever, chills EYE: Absent: vision changes ENT: Absent: nose congestion, nasal drainage Respiratory: Present: See HPI Cardiology: Present: See HPI Gastrointestinal/Abdominal: Absent: nausea, vomiting Genitourinary: Absent: frequency Musculoskeletal: Absent: back pain, muscle pain Skin: Absent: rash Neurological: Absent: numbness, tingling Endocrine: Present: excessive sweating Medical History (Last Reviewed 10/30/19 @ 05:03 by Chris Purvis DO) Lightheadedness (Acute) Morbid obesity with body mass index (BMI) greater than or equal to 50 (Chronic) Patel is lost about 70 pounds. Lung mass (Chronic) Chronic kidney disease (CKD), stage IV (severe) (Chronic) Wound, open, breast (Acute) Dysuria-frequency syndrome (Acute) Morbid obesity with BMI of 50.0-59.9, adult (Chronic) Vascular insufficiency of limb (Acute) Left lower extremity Ischemic pain of left foot (Acute) Diabetic autonomic neuropathy associated with type 2 diabetes mellitus (Chronic) Feet are now anesthetic. Degenerative arthritis (Chronic) DDD (degenerative disc disease), lumbar (Chronic) Low back pain (Chronic) ESRD (end stage renal disease) (Chronic) Muscle spasm (Resolved) Possibly from the statin. Acute serous otitis media of left ear (Chronic) Has had decreased hearing and intermittent pain in the L ear for the past 1 month Morbid obesity with BMI of 60.0-69.9, adult (Chronic) IDDM (insulin dependent diabetes mellitus) (Chronic) Chronic pain syndrome (Chronic) BMI 60.0-69.9, adult (Chronic) Left breast abscess (Resolved) Original I&D on 06/12/2018 BMI 60.0-69.9, adult (Acute) Severe low back pain (Chronic) Essential hypertension (Chronic) Anemia Onset Date: Unknown Aortic valve sclerosis Onset Date: Unknown Cardiomegaly Onset Date: Unknown Cardiomyopathy Onset Date: Unknown Current tobacco use 1 ppd cigars Macular edema Moderate non-proliferative diabetic retinopathy No history of alcohol use Proteinuria Onset Date: ~03/29/13 Pseudophakia Onset Date: Unknown Sleep apnea Verrucae vulgaris Onset Date: Unknown CAD (coronary artery disease) Onset Date: Unknown Chronic GERD Onset Date: Unknown Chronic renal failure, stage 3 (moderate) Onset Date: Unknown Congestive heart failure (CHF) Onset Date: ~06/27/13 Diabetes mellitus Onset Date: ~04/04/17 Heart disease Onset Date: Unknown Hyperlipidemia due to dietary fat intake Onset Date: Unknown Hypertension Onset Date: Unknown Surgical History: Surgical History (Last Reviewed 10/30/19 @ 05:03 by Chris Purvis DO) History of bunionectomy Right History of arthroplasty of right ankle History of esophagogastroduodenoscopy Onset Date: 04/19/13 [place]; clotest negative. Gastritis History of incision and drainage Onset Date: 01/11/19 01/11/19 [place]-left breast abscess Hx of arthroscopy of left knee Onset Date: Unknown x2 Hx of cataract extraction Onset Date: ~2017 bilateral Hx of colonoscopy with polypectomy Onset Date: 09/09/12 - sigmoid diverticulosis, healing anal fissure, normal colonic mucosa. Recheck in 10 years Hx of hernia repair As an infant; Right inguinal hernia Family History: Family History (Last Reviewed 10/30/19 @ 05:03 by Chris Purvis DO) Father , age 67-colon cancer ca Cancer Colon-dx age 65 and lung cancer Diabetes Mother , age 73-unsure of cause Hypertension Diabetes Uncle Cancer (Paternal) Colon Cancer Grandmother Cancer (Paternal) Colon cancer Grandfather Cancer (Maternal) Colon Cancer Aunt Cancer (Paternal) Lung Cancer Brother Hypertension Diabetes Brother Alive and well Brother Alive and well Brother Alive and well Social History: (Last Reviewed 10/30/19 @ 05:03 by Chris Purvis DO) Social History: Marital status: Single lives independently: Yes household members: none current occupational status: disabled Highest education level completed: 11th grade Service: No Tobacco: Smoking Status: Current every day smoker Smoking cigarettes per day: 1 Alcohol: alcohol intake: never Substance Use: substance use type: does not use Dietary Habits: caffeine: Yes Personal Safety: victim of physical abuse: No victim of emotional abuse: No Physical Exam - Physical Exam General Appearance: Present: wd/wn, alert, moderate distress Head Exam: Present: normal inspection, no evidence of injury Eye Exam: Normal inspection: bilateral Ears, Nose, Throat: Present: normal ENT inspection Neck: Present: normal inspection, nontender, supple Respiratory: Present: respiratory distress, decreased breath sounds - bilateral Gastrointestinal/Abdominal: Present: nontender, nondistended, soft Back Exam: Present: no vertebral tenderness Extremity Exam: Present: normal range of motion, pedal edema Neurological Exam: Present: alert, oriented, no motor/sensory deficits Skin Exam: Present: normal color, warm/dry Lymphatic Exam: Present: no adenopathy Progress - Results and Orders Patient's Lab Results:: I have reviewed the patient's lab results. Results and Orders: Laboratory Tests 10/30/19 10/30/19 10/30/19 01:45 02:00 02:00 WBC 14.1 H Hgb 9.0 L Hct 30.3 L Plt Count 427 D-Dimer 1.22 H Sodium 131 L Potassium 4.7 H Chloride 97 Anion Gap 16.0 H BUN 69 H Creatinine 2.60 H Random Glucose 480 H Lactic Acid, Venous Calcium 8.9 Total Bilirubin 0.2 AST 15 ALT 23 Alkaline Phosphatase 127 Troponin I 0.042 B-Natriuretic Peptide 6002 H 10/30/19 10/30/19 02:00 05:00 WBC Hgb Hct Plt Count D-Dimer Sodium Potassium Chloride Anion Gap BUN Creatinine Random Glucose Lactic Acid, Venous 2.9 H* 1.6 Calcium Total Bilirubin AST ALT Alkaline Phosphatase Troponin I B-Natriuretic Peptide - Vital Signs Patient's Vital Signs:: I have reviewed the patient's vital signs. - EKG EKG #1 EKG: other - ectopic atrial rhythm, Non specific ST T wave changes. EKG read: Interp. by ky - X-Ray X-Ray #1 X-Ray: chest Interpretation: Interp. by me X-ray Comments: Bilateral pulmonary edema with possible right lower lobe infiltrate. No pneumothorax. Cardiac size is enlarged. Right pleural-based mass is stable from previous - Progress/Reassessment Progress:: Improved Progress Note-Subjective: 10/30/19 04:00 Patient has been weaned down off of oxygen and is now maintaining 95 to 96% saturation on room air 10/30/19 04:[address] Mccullough he agrees with admission for IV diuresis and IV antibiotics. Departure Clinical Impression: CHF (congestive heart failure) Qualifiers: Heart failure type: combined systolic and diastolic Heart failure chronicity: acute on chronic Qualified Code(s): I50.43 - Acute on chronic combined systolic (congestive) and diastolic (congestive) heart failure Pneumonia Qualifiers: Pneumonia type: due to unspecified organism Laterality: right Lung location: lower lobe of lung Qualified Code(s): J18.9 - Pneumonia, unspecified organism Sepsis Qualifiers: Sepsis type: sepsis due to unspecified organism Sepsis acute organ dysfunction status: with acute organ dysfunction Severe sepsis acute organ dysfunction type: critical illness myopathy Severe sepsis shock status: without septic shock Qu alified Code(s): A41.9 - Sepsis, unspecified organism - Departure Disposition: Still a patient Condition: Good
[2019-10-30 02:10] LABS: Hematocrit 30.3 % (42.0-52.0); Mean Cell Volume 79.9 fl (78-100); Mean Corpuscular Hemoglobin 23.7 pg (27-31); Mean Corpuscular Hgb Conc 29.7 g/dl (32-36); Mean Platelet Volume 9.3 fl (8-11.3); Neutrophil # 8.9 K/mm3 (1.3-6.0); Neutrophil % 62.8 % (42-75.0); Platelet Count 427 K/mm3 (150-450); Red Blood Count 3.79 M/mm3 (4.7-6.0); Red Cell Distribution Width 19.7 % (11.5-14.0); White Blood Count 14.1 K/mm3 (4.0-10.5)
[2019-10-30 02:27] LABS: Troponin I 0.042 ng/mL (0.00-0.10)
[2019-10-30 02:33] LABS: Albumin * 3.3 gm/dl (3.4-5.0); BUN/Creatinine Ratio 26.5 (9.0-21.6); Bilirubin, Total 0.2 mg/dL (0.0-1.1); Ca. Corrected For Albumin 9.1 mg/dL (8.4-10.2); Calcium * 8.9 mg/dL (7.9-10.9); Carbon Dioxide 22.7 mmol/L (24-32.6); Potassium 4.7 mmol/L (3.4-4.6); Total Protein 7.9 gm/dL (6.2-8.2)
[2019-10-30] MEDS ORDERED: MORPHINE SULFATE 2 MG/ML DISP.SYRIN IV ONE (02:52)
[2019-10-30] MEDS ORDERED: FUROSEMIDE 10 MG/ML VIAL IV ONE (03:17)
[2019-10-30] MEDS ORDERED: cefTRIAXone SODIUM 1,000 MG/100 ML BAG IV ONE (04:01)
[2019-10-30] MEDS: NICOTINE 21 MG PATC TD SCH (04:15)
[2019-10-30] MEDS ORDERED: FAMOTIDINE 20 MG TABLET PO PRN (07:29)
[2019-10-30] MEDS ORDERED: MORPHINE SULFATE 60 MG TABLET.SA PO PRN (07:29)
[2019-10-30] MEDS ORDERED: SUCRALFATE 1 G/10 ML UDC PO PRN (07:29)
[2019-10-30] MEDS ORDERED: ACETAMINOPHEN 500 MG TABLET PO PRN (07:29)
[2019-10-30] MEDS ORDERED: NITROGLYCERIN 0.4 MG/TAB BTL SL PRN (07:29)
[2019-10-30] MEDS ORDERED: MECLIZINE HCL 25 MG TABLET PO PRN (07:29)
[2019-10-30] MEDS ORDERED: PRAVASTATIN SODIUM 10 MG PO SCH (07:30)
[2019-10-30] MEDS ORDERED: METOPROLOL SUCCINATE 100 MG TABLET.SA PO SCH (07:30)
[2019-10-30] MEDS ORDERED: LISINOPRIL 10 MG TABLET PO SCH (07:30)
[2019-10-30] MEDS ORDERED: AZITHROMYCIN 250 MG TABLET PO ONE (07:35)
[2019-10-30] MEDS ORDERED: ALBUTEROL SULFATE 2.5 MG/0.5 ML VIAL.NEB IH PRN (08:00)
[2019-10-30] MEDS: ACETAMINOPHEN 500 MG TABLET PO PRN ×2 (08:59→19:10)
[2019-10-30] MEDS: ENOXAPARIN SODIUM 40 MG/0.4 ML SYRG SC SCH (09:00)
[2019-10-30] MEDS ORDERED: MULTIVITAMIN PO SCH (09:00)
[2019-10-30] MEDS: ASPIRIN 325 MG TABLET.DR PO SCH (09:01)
[2019-10-30] MEDS: FERROUS SULFATE 325 MG TABLET PO SCH (09:02)
[2019-10-30] MEDS: ISOSORBIDE MONONITRATE 60 MG TAB.SR.24H PO SCH (09:02)
[2019-10-30] MEDS: PANTOPRAZOLE SODIUM 40 MG TABLET.EC PO SCH (09:03)
[2019-10-30] MEDS ORDERED: AZITHROMYCIN 250 MG TABLET ONE (09:05)
[2019-10-30] MEDS: DOCUSATE SODIUM 100 MG CAPSULE PO PRN (09:10)
[2019-10-30] MEDS: INSULIN GLARGINE,HUM.REC.ANLOG 100 UNITS/ML VIAL SC SCH (09:15)
[2019-10-30] MEDS: HUM INSULIN NPH/REG INSULIN HM 100 UNIT/ML VIAL SC SCH ×2 (09:16→16:37)
[2019-10-30] MEDS: ALBUTEROL SULFATE 2.5 MG/0.5 ML VIAL.NEB IH SCH ×4 (10:33→18:22)
[2019-10-30] MEDS ORDERED: INSULIN GLARGINE,HUM.REC.ANLOG 100 UNITS/ML VIAL SC ONE (12:16)
[2019-10-30] MEDS ORDERED: INSULIN LISPRO 100 UNITS/ML VIAL SC ONE (12:16)
--- NOTE | 2019-10-30 12:35 | HP ---
Chief Complaint - Chief Complaint Date of Service: 10/30/19 Time of Service: 12:35 Chief Complaint: Shortness of breath, chest discomfort History of Present Illness: 58-year-old male with history of CHF (unknown type ), lung cancer currently be ing monitored and unchanged, shortness of breath and hypoxia, hypertension presented to the ER after being awoken from sleep with shortness of breath and chest pressure. EKG obtained which did not show any acute cardiac pathology compared to previous EKGs, troponin was negative. Chest x-ray was obtained which showed bilateral pleural effusions with possible lower lobe infiltrate starting to form. Patient has been slowly becoming more short of breath and developing worse exercise intolerance over the last week to 10 days. His BNP was also elevated at a little over 6000. While here he was requiring use of a nonrebreather to maintain sats but prior to being admitted to the floor was weaned off of this and he was maintaining sats on room air. He was given IV Lasix to help with some aggressive diuresis due to his fluid overload seen on chest x-ray as well as his clinical picture. He was also given a dose of Rocephin and started on a azithromycin for presumed community-acquired pneumo rayo. When seen this morning patient was sitting comfortable in a chair eating breakfast. States that he is already started to feel much better. States that he has diuresed significantly which he thinks is helping his breathing. He denies chest pain, shortness of breath at this time. He denies nausea or vomiting, fever or chills. He does endorse cough but it is nonproductive and he has been afebrile. Medical History (Last Reviewed 10/30/19 @ 06:44 by Nata Lewis RN) Lightheadedness (Acute) Morbid obesity with body mass index (BMI) greater than or equal to 50 (Chronic) Patel is lost about 70 pounds. Lung mass (Chronic) Chronic kidney disease (CKD), stage IV (severe) (Chronic) Wound, open, breast (Acute) Dysuria-frequency syndrome (Acute) Morbid obesity with BMI of 50.0-59.9, adult (Chronic) Vascular insufficiency of limb (Acute) Left lower extremity Ischemic pain of left foot (Acute) Diabetic autonomic neuropathy associated with type 2 diabetes mellitus (Chronic) Feet are now anesthetic. Degenerative arthritis (Chronic) DDD (degenerative disc disease), lumbar (Chronic) Low back pain (Chronic) ESRD (end stage renal disease) (Chronic) Muscle spasm (Resolved) Possibly from the statin. Acute serous otitis media of left ear (Chronic) Has had decreased hearing and intermittent pain in the L ear for the past 1 month Morbid obesity with BMI of 60.0-69.9, adult (Chronic) IDDM (insulin dependent diabetes mellitus) (Chronic) Chronic pain syndrome (Chronic) BMI 60.0-69.9, adult (Chronic) Left breast abscess (Resolved) Original I&D on 06/12/2018 BMI 60.0-69.9, adult (Acute) Severe low back pain (Chronic) Essential hypertension (Chronic) Anemia Onset Date: Unknown Aortic valve sclerosis Onset Date: Unknown Cardiomegaly Onset Date: Unknown Cardiomyopathy Onset Date: Unknown Current tobacco use 1 ppd cigars Macular edema Moderate non-proliferative diabetic retinopathy No history of alcohol use Proteinuria Onset Date: ~03/29/13 Pseudophakia Onset Date: Unknown Sleep apnea Verrucae vulgaris Onset Date: Unknown CAD (coronary artery disease) Onset Date: Unknown Chronic GERD Onset Date: Unknown Chronic renal failure, stage 3 (moderate) Onset Date: Unknown Congestive heart failure (CHF) Onset Date: ~06/27/13 Diabetes mellitus Onset Date: ~04/04/17 Heart disease Onset Date: Unknown Hyperlipidemia due to dietary fat intake Onset Date: Unknown Hypertension Onset Date: Unknown Surgical History: Surgical History (Last Reviewed 10/30/19 @ 06:44 by Nata Lewis, SLICK) History of bunionectomy Right History of arthroplasty of right ankle History of esophagogastroduodenoscopy Onset Date: 04/19/13 Kayden; clotest negative. Gastritis History of incision and drainage Onset Date: 01/11/19 01/11/19 Kayden-left breast abscess Hx of arthroscopy of left knee Onset Date: Unknown x2 Hx of cataract extraction Onset Date: ~2017 bilateral Hx of colonoscopy with polypectomy Onset Date: 09/09/12 - sigmoid diverticulosis, healing anal fissure, normal colonic mucosa. Recheck in 10 years Hx of hernia repair As an infant; Right inguinal hernia Family History: Family History (Last Reviewed 10/30/19 @ 06:45 by Nata Lewis, SLICK) Father , age 67-colon cancer ca Diabetes Cancer Colon-dx age 65 and lung cancer Mother , age 73-unsure of cause Diabetes Hypertension Uncle Cancer (Paternal) Colon Cancer Grandmother Cancer (Paternal) Colon cancer Grandfather Cancer (Maternal) Colon Cancer Aunt Cancer (Paternal) Lung Cancer Brother Diabetes Hypertension Brother Alive and well Brother Alive and well Brother Alive and well Social History: (Last Reviewed 10/30/19 @ 06:45 by Nata Lewis RN) Social History: Marital status: Single lives independently: Yes household members: none current occupational status: disabled Highest education level completed: 11th grade Service: No Tobacco: Smoking Status: Current every day smoker Smoking cigarettes per day: 1 Alcohol: alcohol intake: never Substance Use: substance use type: does not use Dietary Habits: caffeine: Yes Personal Safety: victim of physical abuse: No victim of emotional abuse: No Review Of Systems (GEN) - Review of Systems Generalized/Overall Review: Absent: Weakness, Chills, Fever EENTM: Absent: Ear Pain, Nose Congestion, Throat Pain Respiratory: Present: Cough - Nonproductive, Shortness of Breath Cardiac: Absent: Chest Pain, Edema, Palpitations Abdominal: Absent: Nausea, Vomiting, Abdominal Pain Genitourinary: Present: No Symptoms Reported Musculoskeletal: Present: No Symptoms Reported Neurological: Present: No Symptoms Reported Skin: Present: No Symptoms Reported Immunizations: IMMUNIZATION HX Immunizations Up to Date Yes History of Influenza Vaccine Yes Hx Pneumococcal Vaccination Yes Allergies/Adverse Reactions: Allergies Allergy/AdvReac Type Severity Reaction Status Date / Time ascorbic acid Allergy Intermediate Hives Verified 10/30/19 04:52 [From Tart Talbot] Celery Seed Extract Allergy Intermediate Hives Verified 10/30/19 04:52 [From Tart Talbot] grape seed extract Allergy Intermediate Hives Verified 10/30/19 04:52 [From Tart Talbot] Sour Talbot Extract Allergy Intermediate Hives Verified 10/30/19 04:52 [From Tart Talbot] fenofibrate AdvReac Intermediate muscle Verified 10/30/19 04:52 spasms rosuvastatin [From Crestor] AdvReac Intermediate muscle Verified 10/30/19 04:52 spasms cherries Allergy Severe "big boils" Uncoded 10/30/19 04:52 Home Medications: HOME MEDICATIONS Aspirin 325 mg PO DAILY 06/14/14 [Last Taken 01/10/19] multivitamin 1 tab PO DAILY 06/11/18 [Last Taken 01/10/19] Docusate Sodium 100 mg PO DAILY PRN 12/23/18 [Last Taken Unknown] Ranitidine HCl [Heartburn Relief] 150 mg PO DAILY PRN 12/23/18 [Last Taken 01/10/19] meclizine 25 mg chewable tablet 25 mg PO TID PRN #90 tab 07/14/19 [Last Taken Unknown] albuterol sulfate 90 mcg/actuation aerosol inhaler 2 inh IH QID PRN #18 g 08/11/19 [Last Taken Unknown] furosemide 40 mg tablet 40 mg PO BID #180 tab 08/11/19 [Last Taken Unknown] insulin glargine 100 unit/mL subcutaneous solution 80 unit SUBCUT QAM #30 ml 08/11/19 [Last Taken Unknown] isosorbide mononitrate 60 mg tablet,extended release 24 hr 60 mg PO QAM PRN #90 tab 08/11/19 [Last Taken Unknown] nitroglycerin 0.4 mg sublingual tablet 0.4 mg SL Q5MIN PRN #25 tab 08/11/19 [Last Taken Unknown] pantoprazole 40 mg tablet,delayed release 40 mg PO DAILY #90 tab 08/11/19 [Last Taken Unknown] Acetaminophen [Non-Aspirin Extra Strength] 500 mg PO Q6H PRN 09/09/19 [Last Taken Unknown] Insulin NPH Hum/Reg Insulin Hm [Novolin 70/30 U-100 Insulin] 30 units SC BIDWM 09/09/19 [Last Taken Unknown] Loperamide HCl [Imodium] 2 mg PO DAILY PRN 09/09/19 [Last Taken Unknown] Metoprolol Succinate [Toprol Xl] 100 mg PO . AT 6 AM 09/09/19 [Last Taken Unknown] Pravastatin Sodium 10 mg PO .AT 2 PM 09/09/19 [Last Taken Unknown] Sucralfate [Carafate] 10 ml PO BID PRN 09/09/19 [Last Taken Unknown] Albuterol Sulfate 2.5 mg INHALATION QID #30 vial.neb 09/13/19 [Last Taken Unknown] Ferrous Sulfate 325 mg PO DAILY #30 tablet. 09/13/19 [Last Taken Unknown] large manual wheelchair 0 .ROUTE .MEDSUPPLY #1 ea 10/26/19 [Last Taken Unknown] umeclidinium 62.5 mcg-vilanterol 25 mcg/actuation powdr for inhalation 1 inh IH DAILY ea 10/26/19 [Last Taken Unknown] Lisinopril [Prinivil] 10 mg PO .AT 2PM 10/30/19 [Last Taken Unknown] Morphine Sulfate [Arymo ER] 60 mg PO Q12H PRN 10/30/19 [Last Taken Unknown] Exam - Exam Vital Signs: Vital Signs - Last Taken Temp 36.1 C 10/30/19 09:27 Pulse 77 10/30/19 10:50 Resp 20 10/30/19 10:50 BP 154/68 H 10/30/19 09:27 Pulse Ox 96 10/30/19 10:40 Constitutional: Present: Alert, Oriented x3, Morbidly obese. Absent: Acute distress Eye Exam: bilateral eye: normal inspection, EOMI Neck: Present: supple, normal inspection Respiratory: Present: no respiratory distress. Absent: normal breath sounds - Diminished breath sounds, likely due to body habitus, crackles, wheezing Cardiovascular/Chest: Present: regular rate, rhythm, other - Distant heart sounds Abdomen: Present: soft, nontender, nondistended Skin Exam: Present: normal color, warm/dry Appearance: Present: appropriate appearance, appropriate insight Eye contact: Present: cooperative, good eye contact Diagnostic Studies: Abnormal Lab Results 10/30/19 10/30/19 10/30/19 Range/Units 01:45 02:00 02:00 WBC 14.1 H (4.0-10.5) K/mm3 RBC 3.79 L (4.7-6.0) M/mm3 Hgb 9.0 L (13.5-18.0) gm/dL Hct 30.3 L (42.0-52.0) % MCH 23.7 L (27-31) pg MCHC 29.7 L (32-36) g/dl RDW 19.7 H (11.5-14.0) % Immature Gran % (Auto) 0.80 H (0.001-0.429) % Immature Gran # (Auto) 0.12 H (0.000-0.0310) K/mm3 Monocytes % 9.8 H (0.0-9) % Eosinophils % 5.7 H (0.0-3.0) % Neutrophils # 8.9 H (1.3-6.0) K/mm3 Monocytes # 1.4 H (0.0-1.0) k/mm3 Eosinophils # 0.8 H (0.0-0.7) k/mm3 D-Dimer 1.22 H (0.19-0.49) ug/mL Sodium 131 L (132-142) mmol/L Potassium 4.7 H (3.4-4.6) mmol/L Carbon Dioxide 22.7 L (24-32.6) mmol/L Anion Gap 16.0 H (6.8-13.8) mmol/L BUN 69 H (6-23) mg/dL Creatinine 2.60 H (0.4-1.4) mg/dL Est GFR (Non-Af Amer) 27 L (60-130) mL/min BUN/Creatinine Ratio 26.5 H (9.0-21.6) Random Glucose 480 H (70-110) mg/dL Lactic Acid, Venous (0.4-2.0) mmol/L B-Natriuretic Peptide 6002 H (5-175) pg/mL Albumin 3.3 L (3.4-5.0) gm/dl 10/30/19 Range/Units 02:00 WBC (4.0-10.5) K/mm3 RBC (4.7-6.0) M/mm3 Hgb (13.5-18.0) gm/dL Hct (42.0-52.0) % MCH (27-31) pg MCHC (32-36) g/dl RDW (11.5-14.0) % Immature Gran % (Auto) (0.001-0.429) % Immature Gran # (Auto) (0.000-0.0310) K/mm3 Monocytes % (0.0-9) % Eosinophils % (0.0-3.0) % Neutrophils # (1.3-6.0) K/mm3 Monocytes # (0.0-1.0) k/mm3 Eosinophils # (0.0-0.7) k/mm3 D-Dimer (0.19-0.49) ug/mL Sodium (132-142) mmol/L Potassium (3.4-4.6) mmol/L Carbon Dioxide (24-32.6) mmol/L Anion Gap (6.8-13.8) mmol/L BUN (6-23) mg/dL Creatinine (0.4-1.4) mg/dL Est GFR (Non-Af Amer) (60-130) mL/min BUN/Creatinine Ratio (9.0-21.6) Random Glucose (70-110) mg/dL Lactic Acid, Venous 2.9 H* (0.4-2.0) mmol/L B-Natriuretic Peptide (5-175) pg/mL Albumin (3.4-5.0) gm/dl Laboratory Results WBC 14.1 K/mm3 (4.0-10.5) H 10/30/19 01:45 RBC 3.79 M/mm3 (4.7-6.0) L 10/30/19 01:45 Hgb 9.0 gm/dL (13.5-18.0) L 10/30/19 01:45 Hct 30.3 % (42.0-52.0) L 10/30/19 01:45 MCV 79.9 fl (78-100) 10/30/19 01:45 MCH 23.7 pg (27-31) L 10/30/19 01:45 MCHC 29.7 g/dl (32-36) L 10/30/19 01:45 RDW 19.7 % (11.5-14.0) H 10/30/19 01:45 Plt Count 427 K/mm3 (150-450) 10/30/19 01:45 MPV 9.3 fl (8-11.3) 10/30/19 01:45 Immature Gran % (Auto) 0.80 % (0.001-0.429) H 10/30/19 01:45 Immature Gran # (Auto) 0.12 K/mm3 (0.000-0.0310) H 10/30/19 01:45 Neutrophils % 62.8 % (42-75.0) 10/30/19 01:45 Lymphocytes % 20.5 % (20-51) 10/30/19 01:45 Monocytes % 9.8 % (0.0-9) H 10/30/19 01:45 Eosinophils % 5.7 % (0.0-3.0) H 10/30/19 01:45 Basophils % 0.4 % (0.0-1.0) 10/30/19 01:45 Nucleated RBC % 0.0 k/mm3 (0-1) 10/30/19 01:45 Neutrophils # 8.9 K/mm3 (1.3-6.0) H 10/30/19 01:45 Lymphocytes # 2.89 k/mm3 (1.5-3.5) 10/30/19 01:45 Monocytes # 1.4 k/mm3 (0.0-1.0) H 10/30/19 01:45 Eosinophils # 0.8 k/mm3 (0.0-0.7) H 10/30/19 01:45 Absolute Basophils 0.1 k/mm3 (0.0-0.1) 10/30/19 01:45 D-Dimer 1.22 ug/mL (0.19-0.49) H 10/30/19 02:00 Sodium 131 mmol/L (132-142) L 10/30/19 02:00 Plasma Sodium 137 mmol/L (130-142) 10/30/19 02:00 Potassium 4.7 mmol/L (3.4-4.6) H 10/30/19 02:00 Chloride 97 mmol/L (97-106) 10/30/19 02:00 Carbon Dioxide 22.7 mmol/L (24-32.6) L 10/30/19 02:00 Anion Gap 16.0 mmol/L (6.8-13.8) H 10/30/19 02:00 BUN 69 mg/dL (6-23) H 10/30/19 02:00 Creatinine 2.60 mg/dL (0.4-1.4) H 10/30/19 02:00 Est GFR (Non-Af Amer) 27 mL/min (60-130) L 10/30/19 02:00 BUN/Creatinine Ratio 26.5 (9.0-21.6) H 10/30/19 02:00 Random Glucose 480 mg/dL (70-110) H 10/30/19 02:00 Lactic Acid, Venous 1.6 mmol/L (0.4-2.0) 10/30/19 05:00 Calcium 8.9 mg/dL (7.9-10.9) 10/30/19 02:00 Calcium Adj for Albumin 9.1 mg/dL (8.4-10.2) 10/30/19 02:00 Total Bilirubin 0.2 mg/dL (0.0-1.1) 10/30/19 02:00 AST 15 U/L (0-48) 10/30/19 02:00 ALT 23 U/L (19-67) 10/30/19 02:00 Alkaline Phosphatase 127 U/L (50-170) 10/30/19 02:00 Troponin I 0.042 ng/mL (0.00-0.10) 10/30/19 02:00 B-Natriuretic Peptide 6002 pg/mL (5-175) H 10/30/19 02:00 Total Protein 7.9 gm/dL (6.2-8.2) 10/30/19 02:00 Albumin 3.3 gm/dl (3.4-5.0) L 10/30/19 02:00 Assessment/Plan - Narrative Narrative: Patient mated to the floor under inpatient for suspected pneumonia and CHF exacerbation. Patient currently sitting comfortable in his chair eating breakfast. Patient states that shortness of breath and chest pressure is significantly improved since receiving some IV Lasix. He is down roughly 7 kg from the time he checked into the time that he was seen this morning during breakfast. Due to patient's cardiopulmonary history we will go ahead and give him Lovenox for DVT prophylaxis. Continue IV Lasix. Chronic medications restarted. Patient received Rocephin in the ER, will add azithromycin to this. Patient asking to go home later this afternoon which would be within 12 to 15 hours of his admission. Recommend he stay at least overnight as we continue to monitor him. His vital signs have stabilized and he is no longer hypoxic. Chronic kidney disease appears to be at baseline with his creatinine 2.6. We will continue to monitor. Repeat BMP in the morning. Restarted his insulin for his diabetes. Will check blood sugars before meals at bedtime. Will adjust insulin if needed. Consistent carbohydrate diet ordered. Patient agreement treatment plan. Nurse will call with questions or concerns. Likely home tomorrow. - Assessment/Plan (1) CHF (congestive heart failure) Problem: Acute Qualifiers: Heart failure type: combined systolic and diastolic Heart failure chronicity: acute on chronic Qualified Code(s): I50.43 - Acute on chronic combined systolic (congestive) and diastolic (congestive) heart failure (2) Pneumonia Problem: Suspected Qualifiers: Pneumonia type: due to unspecified organism Laterality: right Lung location: lower lobe of lung Qualified Code(s): J18.9 - Pneumonia, unspecified organism (3) SOB (shortness of breath) Problem: Acute (4) Insulin dependent diabetes mellitus Problem: Chronic (5) Chronic kidney disease (CKD), stage IV (severe) Problem: Chronic (6) Morbid obesity with BMI of 50.0-59.9, adult Problem: Chronic (7) Essential hypertension Problem: Chronic
[2019-10-31] MEDS: ACETAMINOPHEN 500 MG TABLET PO PRN (03:53)
[2019-10-31] MEDS: NICOTINE 21 MG PATC TD SCH (03:55)
[2019-10-31] MEDS: ALBUTEROL SULFATE 2.5 MG/0.5 ML VIAL.NEB IH SCH ×3 (06:22→14:47)
[2019-10-31 07:42] LABS: Hematocrit 29.4 % (42.0-52.0); Hemoglobin 8.9 gm/dL (13.5-18.0); Mean Cell Volume 78.4 fl (78-100); Mean Corpuscular Hemoglobin 23.7 pg (27-31); Mean Corpuscular Hgb Conc 30.3 g/dl (32-36); Mean Platelet Volume 9.7 fl (8-11.3); Platelet Count 273 K/mm3 (150-450); Red Blood Count 3.75 M/mm3 (4.7-6.0); Red Cell Distribution Width 19.7 % (11.5-14.0); White Blood Count 11.7 K/mm3 (4.0-10.5)
[2019-10-31 07:48] LABS: Anion Gap 15.9 mmol/L (6.8-13.8); BUN/Creatinine Ratio 27.9 (9.0-21.6); Calcium * 8.8 mg/dL (7.9-10.9); Carbon Dioxide 24.1 mmol/L (24-32.6); Estimated Creat Clear 32.6
[2019-10-31 08:02] LABS: Total Cells Counted 100
[2019-10-31 08:08] LABS: Atypical (Reactive) Lymph 1 % (0-2); Eosinophil 7 % (0-3); Lymphocyte 10 % (20-51); Monocyte 10 % (0-9); Neutrophil 72 % (42-75); Neutrophil # 8.4 K/mm3 (1.3-6.0)
[2019-10-31 08:09] LABS: Anisocytosis 2+; Hypochromia 2+; Target Cells 1+
[2019-10-31 08:10] LABS: Microcytosis 1+
[2019-10-31 08:11] LABS: Platelet Estimate Normal (NORMAL)
[2019-10-31] MEDS: ENOXAPARIN SODIUM 40 MG/0.4 ML SYRG SC SCH (08:36)
[2019-10-31] MEDS: ISOSORBIDE MONONITRATE 60 MG TAB.SR.24H PO SCH (08:37)
[2019-10-31] MEDS: ASPIRIN 325 MG TABLET.DR PO SCH (08:37)
[2019-10-31] MEDS: FERROUS SULFATE 325 MG TABLET PO SCH (08:37)
[2019-10-31] MEDS: PANTOPRAZOLE SODIUM 40 MG TABLET.EC PO SCH (08:37)
[2019-10-31] MEDS: INSULIN GLARGINE,HUM.REC.ANLOG 100 UNITS/ML VIAL SC SCH (08:38)
[2019-10-31] MEDS: HUM INSULIN NPH/REG INSULIN HM 100 UNIT/ML VIAL SC SCH (08:41)
[2019-10-31] MEDS: DOCUSATE SODIUM 100 MG CAPSULE PO PRN (08:53)
[2019-10-31] MEDS ORDERED: FUROSEMIDE 10 MG/ML VIAL IV SCH (09:00)
[2019-10-31] MEDS ORDERED: AZITHROMYCIN 250 MG TABLET PO SCH (09:00)
--- NOTE | 2019-10-31 11:46 | DS ---
(1) CHF (congestive heart failure) Problem: Resolved Qualifiers: Heart failure type: combined systolic and diastolic Heart failure chronicity: acute on chronic Qualified Code(s): I50.43 - Acute on chronic combined systolic (congestive) and diastolic (congestive) heart failure (2) Pneumonia Problem: Suspected Qualifiers: Pneumonia type: due to unspecified organism Laterality: right Lung location: lower lobe of lung Qualified Code(s): J18.9 - Pneumonia, unspecified organism (3) SOB (shortness of breath) Problem: Resolved (4) Insulin dependent diabetes mellitus Problem: Chronic (5) Chronic kidney disease (CKD), stage IV (severe) Problem: Chronic (6) Morbid obesity with BMI of 50.0-59.9, adult Problem: Chronic (7) Essential hypertension Problem: Chronic Date of Discharge:: 10/31/19 Hospital Course: Patel is a 58-year-old male who came to the hospital after being awoken from sleep with chest pressure and shortness of breath. He had significant cardiac history and so he was initially monitored in the ER for possible acute coronary syndrome. EKG came back unchanged from previous. Troponins were within normal limits. BNP was found to be greater than 6000 which is higher than it is ever been on record. He did endorse shortness of breath. He was taken p.o. Lasix but had endorsed some weight gain and cough. He denies being febrile but he had a slight elevated white count of 14.7 with a left shift. Chest x-ray showed possible pneumonia starting. He was given a gram of Rocephin and azithromycin. Was brought in to continue antibiotic treatment as well as to be diuresed. He received IV Lasix over the course of his stay here, he lost close to 15 pounds in fluid weight. Following this he felt much better and was ready to be discharged home. Patient was trying to leave the day of his admission in which I convince him to stay overnight to continue diuresing indicating monitoring. His vital signs been stable has been afebrile. Advised to follow-up with Dr. Isidro in the next week or 2. Advised him to take extra Lasix on days where he feels like he is gaining weight which he is to monitor. Recommend keeping his fluid restricted to 2 L a day. Advised low-salt diet. Of note patient also has chronic kidney disease stage IV, his creatinine was initially bumped to 2.6 but it returned more towards baseline at 2.3 on day of discharge. No changes were made to his chronic medication. He was sent home with another 3 days of azithromycin for his presumed community-acquired pneumonia though I think his hypoxia and shortness of breath and cough are more from his fluid overload then from his CHF exacerbation. His blood pressures been well controlled, no changes to his hypertension medication. Of note when he first came in his blood sugar was greater than 490, adjusted his long-acting insulin and gave him an extra dose of short acting. This morning it was 112. He was feeling much better. Recommend he continue to take a larger dose of long-acting and to again discuss with his PCP on how to adjust that short acting prior to eating. Patient states understanding to this and is in agreement with it as well. Procedures Performed: none Results and Findings: Pending Mircobiology Results 10/30/19 02:35 Blood Blood Culture - Preliminary NO GROWTH 24 HOURS 10/30/19 02:00 Blood Blood Culture - Preliminary NO GROWTH 24 HOURS Lab Pending Results 10/30/19 01:45: WBC 14.1 H, RBC 3.79 L, Hgb 9.0 L, Hct 30.3 L, MCV 79.9, MCH 23.7 L, MCHC 29.7 L, RDW 19.7 H, Plt Count 427, MPV 9.3, Immature Gran % (Auto) 0.80 H, Immature Gran # (Auto) 0.12 H, Neutrophils % 62.8, Lymphocytes % 20.5, Monocytes % 9.8 H, Eosinophils % 5.7 H, Basophils % 0.4, Nucleated RBC % 0.0, Neutrophils # 8.9 H, Lymphocytes # 2.89, Monocytes # 1.4 H, Eosinophils # 0.8 H, Absolute Basophils 0.1 10/30/19 02:00: Sodium 131 L, Plasma Sodium 137, Potassium 4.7 H, Chloride 97, Carbon Dioxide 22.7 L, Anion Gap 16.0 H, BUN 69 H, Creatinine 2.60 H, Est GFR (Non-Af Amer) 27 L, BUN/Creatinine Ratio 26.5 H, Random Glucose 480 H, Calcium 8.9, Calcium Adj for Albumin 9.1, Total Bilirubin 0.2, AST 15, ALT 23, Alkaline Phosphatase 127, Troponin I 0.042, B-Natriuretic Peptide 6002 H, Total Protein 7.9, Albumin 3.3 L 10/30/19 02:00: D-Dimer 1.22 H 10/30/19 02:00: Lactic Acid, Venous 2.9 H* 10/30/19 05:00: Lactic Acid, Venous 1.6 10/31/19 07:30: WBC 11.7 H, RBC 3.75 L, Hgb 8.9 L, Hct 29.4 L, MCV 78.4, MCH 23.7 L, MCHC 30.3 L, RDW 19.7 H, Plt Count 273, MPV 9.7, Neutrophils % (Manual) 72, Lymphocytes % (Manual) 10 L, Monocytes % (Manual) 10 H, Eosinophils % (Manual) 7 H, Neutrophils # (Manual) 8.4 H, Lymphocytes # (Manual) 1.2 L, Monocytes # (Manual) 1.2 H, Eosinophils # (Manual) 0.8 H, Atypic/Reactive Lymphs 1, Platelet Estimate Normal, Hypochromasia 2+, Anisocytosis 2+, Microcytosis 1+, Target Cells 1+ 10/31/19 07:30: Sodium 135, Plasma Sodium 135, Potassium 5.0 H, Chloride 100, Carbon Dioxide 24.1, Anion Gap 15.9 H, BUN 65 H, Creatinine 2.33 H, Est GFR (Non-Af Amer) 31 L, BUN/Creatinine Ratio 27.9 H, Random Glucose 112 H D, Calcium 8.8 Discharge Location: Home Disposition: Home Health Service Condition: Good Discharge Activity: Activity as tolerated Discharge Diet: Consistent carbs, Low salt Referrals: Ryan Isidro DO [Primary Care Provider] - One Week Additional Patient Instructions (free text): [facility] Home Health, ongoing please fax discharge orders Prescriptions (Any new or edited meds): Azithromycin [Zithromax] 250 mg PO DAILY #3 tab Transmission Status: Received by [place], [place] Complete Home Medications List: Complete Home Medication List: Aspirin 325 mg PO DAILY 06/14/14 multivitamin 1 tab PO DAILY 06/11/18 Docusate Sodium 100 mg PO DAILY PRN 12/23/18 Ranitidine HCl [Heartburn Relief] 150 mg PO DAILY PRN 12/23/18 meclizine 25 mg chewable tablet 25 mg PO TID PRN #90 tab 07/14/19 albuterol sulfate 90 mcg/actuation aerosol inhaler 2 inh IH QID PRN #18 g 08/11/19 furosemide 40 mg tablet 40 mg PO BID #180 tab 08/11/19 insulin glargine 100 unit/mL subcutaneous solution 80 unit SUBCUT QAM #30 ml 08/11/19 isosorbide mononitrate 60 mg tablet,extended release 24 hr 60 mg PO QAM PRN #90 tab 08/11/19 nitroglycerin 0.4 mg sublingual tablet 0.4 mg SL Q5MIN PRN #25 tab 08/11/19 pantoprazole 40 mg tablet,delayed release 40 mg PO DAILY #90 tab 08/11/19 Acetaminophen [Non-Aspirin Extra Strength] 500 mg PO Q6H PRN 09/09/19 Insulin NPH Hum/Reg Insulin Hm [Humulin 70-30] 30 units SC BIDWM 09/09/19 Loperamide HCl [Imodium] 2 mg PO DAILY PRN 09/09/19 Metoprolol Succinate [Toprol Xl] 100 mg PO . AT 6 AM 09/09/19 Pravastatin Sodium 10 mg PO .AT 2 PM 09/09/19 Sucralfate [Carafate] 10 ml PO BID PRN 09/09/19 Albuterol Sulfate 2.5 mg INHALATION QID #30 vial.harshal 09/13/19 Ferrous Sulfate 325 mg PO DAILY #30 tablet. 09/13/19 large manual wheelchair 0 .ROUTE .MEDSUPPLY #1 ea 10/26/19 umeclidinium 62.5 mcg-vilanterol 25 mcg/actuation powdr for inhalation 1 inh IH DAILY ea 10/26/19 Lisinopril [Prinivil] 10 mg PO .AT 2PM 10/30/19 Morphine Sulfate [Arymo ER] 60 mg PO Q12H PRN 10/30/19 Azithromycin [Zithromax] 250 mg PO DAILY #3 tab 10/31/19
[2019-10-31 16:49] VITALS: BP 99/47
== END 2019-10-31 14:40 | disposition home health service (06) | DRG 291 ==
LOC: ER 01:38 → MS 04:15
PROVIDERS: ADMIT Family Medicine; ATTEND Family Medicine
CPT/HCPCS: 36415; 71010; 71045; 80048; 80053; 83519; 83605; 83880; 84484; 85007; 85025; 85379; 87040; 93005; 94640; 94664; 96374; 96375; 99285

== ENCOUNTER 2019-11-25 00:42 | Inpatient (IN) ==
[2019-11-25 01:26] LABS: Hematocrit 30.3 % (42.0-52.0); Hemoglobin 8.8 gm/dL (13.5-18.0); Mean Cell Volume 81.7 fl (78-100); Mean Corpuscular Hemoglobin 23.7 pg (27-31); Mean Platelet Volume 8.9 fl (8-11.3); Neutrophil # 9.9 K/mm3 (1.3-6.0); Neutrophil % 80.3 % (42-75.0); Platelet Count 396 K/mm3 (150-450); Red Blood Count 3.71 M/mm3 (4.7-6.0); Red Cell Distribution Width 19.4 % (11.5-14.0); White Blood Count 12.3 K/mm3 (4.0-10.5)
--- NOTE | 2019-11-25 01:27 | ERNOTE ---
Dyspnea - General Presenting Symptoms: shortness of breath Time Seen by Provider: 11/25/19 00:57 Source: patient, EMS Exam Limitations: no limitations - Immun/Allergies/Home Medications Immunizations: IMMUNIZATION HX Immunizations Up to Date Yes History of Influenza Vaccine Yes Hx Pneumococcal Vaccination Yes Allergies/Adverse Reactions: Allergies ascorbic acid [From Tart Talbot] Allergy (Intermediate, Verified 11/25/19 00:59) Hives Great big boils all over his body Celery Seed Extract [From Tart Talbot] Allergy (Intermediate, Verified 11/25/19 00:59) Hives Great big boils all over his body grape seed extract [From Tart Talbot] Allergy (Intermediate, Verified 11/25/19 00:59) Hives Great big boils all over his body Sour Talbot Extract [From Tart Talbot] Allergy (Intermediate, Verified 11/25/19 00:59) Hives Great big boils all over his body fenofibrate Adverse Reaction (Intermediate, Verified 11/25/19 00:59) muscle spasms rosuvastatin [From Crestor] Adverse Reaction (Intermediate, Verified 11/25/19 00:59) muscle spasms cherries Allergy (Severe, Uncoded 11/25/19 00:59) "big boils" Home Medications: HOME MEDICATIONS Aspirin 325 mg PO DAILY 06/14/14 [Last Taken 01/10/19] meclizine 25 mg chewable tablet 25 mg PO TID PRN #90 tab 07/14/19 [Last Taken Unknown] insulin glargine 100 unit/mL subcutaneous solution 80 unit SUBCUT QAM #30 ml 08/11/19 [Last Taken Unknown] nitroglycerin 0.4 mg sublingual tablet 0.4 mg SL Q5MIN PRN #25 tab 08/11/19 [Last Taken Unknown] Acetaminophen [Non-Aspirin Extra Strength] 1,000 mg PO Q6H PRN 09/09/19 [Last Taken Unknown] Insulin NPH Hum/Reg Insulin Hm [Humulin 70-30] 30 units SC BIDWM 09/09/19 [Last Taken Unknown] Metoprolol Succinate [Toprol Xl] 100 mg PO . AT 6 AM 09/09/19 [Last Taken Unknown] Pravastatin Sodium 10 mg PO DAILY 09/09/19 [Last Taken 11/24/19 21:00] Morphine Sulfate [Arymo ER] 60 mg PO Q12H PRN 10/30/19 [Last Taken Unknown] Clopidogrel Bisulfate [Plavix] 75 mg PO DAILY 11/25/19 [Last Taken Unknown] Docusate Sodium [Colace] 100 mg PO DAILY 11/25/19 [Last Taken 11/24/19 09:00] Ferrous Sulfate [Iron] 325 mg PO 11/25/19 [Last Taken Unknown] Furosemide [Lasix] 40 mg PO DAILY 11/25/19 [Last Taken Unknown] Pantoprazole Sodium 40 mg PO BID 11/25/19 [Last Taken Unknown] - History of Present Illness Narrative: Patient states he has been short of breath all day increasing throughout the day. He called EMS, when they arrived he had sats in the 70s. After arriving here on 6 L per nasal cannula he had O2 sats of 78%. Severity: severe Treatment POSTULANT: paramedics, oxygen, albuterol, other - solumedrol Initiating event: Reports: unknown Frequency of episodes: Reports: frequent episodes Modifying Factors - (Improves): Reports: albuterol, oxygen Modifying Factors (Worsens): Reports: lying down Associated Symptoms-Dyspnea: Reports: cough - minimal. Denies: fever/chills, chest pain/discomfort Review of Systems - Review of Systems Constitutional: Present: fatigue. Absent: recent illness, fever ENT: Absent: nose congestion Respiratory: Present: See HPI Cardiology: Present: palpitations Gastrointestinal/Abdominal: Absent: nausea Skin: Present: rash, dryness Neurological: Present: headache Medical History (Last Reviewed 11/25/19 @ 04:33 by Chris Purvis DO) Nocturnal hypoxemia (Chronic) Can not tolerate CPAP or Bi-PAP. Sleeps well when in the hospital and on nasal cannula O2. Lower GI bleeding (Chronic) Colonic mass (Chronic) Nocturnal dyspnea (Chronic) Lightheadedness (Acute) Morbid obesity with body mass index (BMI) greater than or equal to 50 (Chronic) Patel is lost about 70 pounds. Lung mass (Chronic) Chronic kidney disease (CKD), stage IV (severe) (Chronic) Wound, open, breast (Acute) Dysuria-frequency syndrome (Acute) Morbid obesity with BMI of 50.0-59.9, adult (Chronic) Vascular insufficiency of limb (Acute) Left lower extremity Ischemic pain of left foot (Acute) Diabetic autonomic neuropathy associated with type 2 diabetes mellitus (Chronic) Feet are now anesthetic. Degenerative arthritis (Chronic) DDD (degenerative disc disease), lumbar (Chronic) Low back pain (Chronic) ESRD (end stage renal disease) (Chronic) Muscle spasm (Resolved) Possibly from the statin. Acute serous otitis media of left ear (Chronic) Has had decreased hearing and intermittent pain in the L ear for the past 1 month Morbid obesity with BMI of 60.0-69.9, adult (Chronic) IDDM (insulin dependent diabetes mellitus) (Chronic) Chronic pain syndrome (Chronic) BMI 60.0-69.9, adult (Chronic) Left breast abscess (Resolved) Original I&D on 06/12/2018 BMI 60.0-69.9, adult (Acute) Severe low back pain (Chronic) Essential hypertension (Chronic) Anemia Onset Date: Unknown Aortic valve sclerosis Onset Date: Unknown Cardiomegaly Onset Date: Unknown Cardiomyopathy Onset Date: Unknown Current tobacco use 1 ppd cigars Macular edema Moderate non-proliferative diabetic retinopathy No history of alcohol use Proteinuria Onset Date: ~03/29/13 Pseudophakia Onset Date: Unknown Sleep apnea Verrucae vulgaris Onset Date: Unknown CAD (coronary artery disease) Onset Date: Unknown Chronic GERD Onset Date: Unknown Chronic renal failure, stage 3 (moderate) Onset Date: Unknown Congestive heart failure (CHF) Onset Date: ~06/27/13 Diabetes mellitus Onset Date: ~04/04/17 Heart disease Onset Date: Unknown Hyperlipidemia due to dietary fat intake Onset Date: Unknown Hypertension Onset Date: Unknown Surgical History: Surgical History (Last Reviewed 11/25/19 @ 04:33 by Chris Purvis DO) History of bunionectomy Right History of arthroplasty of right ankle History of esophagogastroduodenoscopy Onset Date: 04/19/13 [place]; clotest negative. Gastritis History of incision and drainage Onset Date: 01/11/19 01/11/19 [place]-left breast abscess Hx of arthroscopy of left knee Onset Date: Unknown x2 Hx of cataract extraction Onset Date: ~2017 bilateral Hx of colonoscopy with polypectomy Onset Date: 09/09/12 - sigmoid diverticulosis, healing anal fissure, normal colonic mucosa. Recheck in 10 years Hx of hernia repair As an ; Right inguinal hernia Family History: Family History (Last Reviewed 11/25/19 @ 04:33 by Chris Purvis DO) Father , age 67-colon cancer ca Diabetes Cancer Colon-dx age 65 and lung cancer Mother , age 73-unsure of cause Diabetes Hypertension Uncle Cancer (Paternal) Colon Cancer Grandmother Cancer (Paternal) Colon cancer Grandfather Cancer (Maternal) Colon Cancer Aunt Cancer (Paternal) Lung Cancer Brother Diabetes Hypertension Brother Alive and well Brother Alive and well Brother Alive and well Social History: (Last Reviewed 11/25/19 @ 04:33 by Chris Purvis DO) Social History: Marital status: Single lives independently: Yes household members: none current occupational status: disabled Highest education level completed: 11th grade Service: No Tobacco: Smoking Status: Current every day smoker Smoking cigarettes per day: 1 Alcohol: alcohol intake: never Substance Use: substance use type: does not use Dietary Habits: caffeine: Yes Personal Safety: victim of physical abuse: No victim of emotional abuse: No Physical Exam - Physical Exam General Appearance: Present: wd/wn, alert, severe distress Head Exam: Present: normal inspection, no evidence of injury Neck: Present: nontender, supple Respiratory: Present: respiratory distress, accessory muscle use, decreased breath sounds Cardiovascular/Chest: Present: tachycardia Gastrointestinal/Abdominal: Present: nontender, nondistended, soft Extremity Exam: Present: extremity edema - b/l 2+ Neurological Exam: Present: alert, oriented Skin Exam: Present: cool/dry, skin rash - L/E dry, thick skin Progress - Results and Orders Patient's Lab Results:: I have reviewed the patient's lab results. Results and Orders: Laboratory Tests 11/25/19 11/25/19 11/25/19 01:10 01:10 01:20 WBC 12.3 H Hgb 8.8 L Hct 30.3 L Plt Count 396 Neutrophils % 80.3 H pCO2 52.8 H pO2 66.9 L HCO3 18.6 L Total CO2 20.2 Base Excess -9.8 L ABG pH 7.17 L* ABG O2 Sat (Measured) 87.6 L Sodium Potassium Chloride Carbon Dioxide BUN Creatinine Random Glucose Lactic Acid, Venous Calcium Total Bilirubin AST ALT Alkaline Phosphatase Troponin I B-Natriuretic Peptide Influenza Type A Ag Negative Influenza Type B Ag Negative 11/25/19 11/25/19 01:20 01:20 WBC Hgb Hct Plt Count Neutrophils % pCO2 pO2 HCO3 Total CO2 Base Excess ABG pH ABG O2 Sat (Measured) Sodium 134 Potassium 4.8 H Chloride 100 Carbon Dioxide 20.8 L BUN 65 H Creatinine 2.42 H Random Glucose 445 H Lactic Acid, Venous 2.2 H* Calcium 8.5 Total Bilirubin 0.1 AST 14 ALT 21 Alkaline Phosphatase 112 Troponin I 0.044 B-Natriuretic Peptide 6613 H Influenza Type A Ag Influenza Type B Ag - Vital Signs Patient's Vital Signs:: I have reviewed the patient's vital signs. Vital Signs: Vital Signs 11/25/19 00:47 Temperature 35.6 C L Pulse Rate 115 H Respiratory Rate 27 H Blood Pressure 154/70 H O2 Sat by Pulse Oximetry 78 L - X-Ray X-Ray #1 X-Ray: chest Interpretation: Interp. by me X-ray Comments: Cardiomegaly. Right midlung mass that appears same as previous. New right lower lobe infiltrate as compared to October 30, 2019 - Progress/Reassessment Chief Complaint: Dyspnea Progress:: Improved Progress Note-Subjective: 11/25/19 02:[address] Chavez he agrees with admission. 11/25/19 02:38 Patient is feeling much better and no longer appears to be in respiratory distress. We have been weaning the oxygen on the CPAP please see respiratory notes for d etails Departure Clinical Impression: Pneumonia Qualifiers: Pneumonia type: due to unspecified organism Laterality: right Lung location: lower lobe of lung Qualified Code(s): J18.9 - Pneumonia, unspecified organism CHF (congestive heart failure) Qualifiers: Heart failure type: unspecified Heart failure chronicity: acute on chronic Qualified Code(s): I50.9 - Heart failure, unspecified Sepsis Qualifiers: Sepsis type: sepsis due to unspecified organism Sepsis acute organ dysfunction status: with acute organ dysfunction Severe sepsis acute organ dysfunction type: critical illness myopathy Severe sepsis shock status: without septic shock Qualified Code(s): A41.9 - Sepsis, unspecified organism; R65.20 - Severe sepsis without septic shock; G72.81 - Critical illness myopathy - Departure Disposition: Still a patient Condition: Serious
[2019-11-25 01:47] LABS: Albumin * 3.2 gm/dl (3.4-5.0); BUN/Creatinine Ratio 26.9 (9.0-21.6); Bilirubin, Total 0.1 mg/dL (0.0-1.1); Ca. Corrected For Albumin 8.8 mg/dL (8.4-10.2); Calcium * 8.5 mg/dL (7.9-10.9); Carbon Dioxide 20.8 mmol/L (24-32.6); Potassium 4.8 mmol/L (3.4-4.6); Total Protein 7.8 gm/dL (6.2-8.2)
[2019-11-25 01:49] LABS: Troponin I 0.044 ng/mL (0.00-0.10)
[2019-11-25] MEDS ORDERED: FUROSEMIDE 10 MG/ML VIAL IV ONE (01:54)
[2019-11-25] MEDS ORDERED: LEVOFLOXACIN IN DEXTROSE 5 % 750 MG/150 ML BAG IV ONE (02:35)
[2019-11-25] MEDS ORDERED: MORPHINE SULFATE 30 MG TABLET.SA PO PRN (08:38)
[2019-11-25] MEDS ORDERED: NITROGLYCERIN 0.4 MG/TAB BTL SL PRN (08:38)
[2019-11-25] MEDS ORDERED: AZITHROMYCIN 250 MG TABLET PO SCH (09:00)
[2019-11-25] MEDS: ENOXAPARIN SODIUM 40 MG/0.4 ML SYRG SC SCH (09:11)
[2019-11-25] MEDS: METOPROLOL SUCCINATE 100 MG TABLET.SA PO SCH ×2 (09:14→09:38)
--- NOTE | 2019-11-25 09:14 | HP ---
Chief Complaint - Chief Complaint Date of Service: 11/25/19 Time of Service: 08:00 Chief Complaint: dyspnea, cough, malaise History of Present Illness: Patel Blackwood is a 58-year-old morbidly obese gentleman who went to bed with some shortness of breath. He took a nebulizer treatment and felt like he was doing better. He went to bed but awakened gasping for air and EMS was summoned. He came to the hospital and was diagnosed with pneumonia. He received Levaquin 750 mg once in the ER. The chest x-ray only reveals the large right lung cancer, interstitial edema and pulmonary vascular congestion which more favors congestive heart failure. Radiologist does not diagnose pneumonia. Patel also has lung cancer and was due to start his radiation treatments today. He is not getting chemotherapy because of poor renal status. With breathing treatments and diuresis his ventilation improved. He has had another admission in October for pneumonia that was an observation stay. This lung tumor is not allowing proper drainage of the lung and it will predispose him to repeated pneumonias until it has been treated. Patel is also an insulin-dependent diabetic and blood sugars this morning are 383. He has not had his morning blood sugars. He has chronic pain issues for which he takes Tylenol on a routine basis and also morphine sulfate extended release. He also has stage IV chronic kidney disease and the EGFR on admission is 29. He is unable to ambulate more than a few steps. He can stand to transfer and take 2 or 3 steps but he cannot walk any long distances. He is pickwickian and if he falls asleep in a chair which he tends to do often he obstructs his airway and his oxygen sats will drop into the 58 to 68% range. He has had a sleep lab study and was prescribed BiPAP but he cannot tolerate it because of claustrophobia. I am working on getting home oxygen for him at this time but thus far it has not been approved. ABGs on admission showed pH is 7.17 with PCO2 of 52 and a PO2 of 69% with O2 sat of 87%. He also has a longstanding history of COPD and has been a smoker until recently. Medical History (Last Reviewed 11/25/19 @ 04:33 by Chris Purvis DO) Nocturnal hypoxemia (Chronic) Can not tolerate CPAP or Bi-PAP. Sleeps well when in the hospital and on nasal cannula O2. Lower GI bleeding (Chronic) Colonic mass (Chronic) Nocturnal dyspnea (Chronic) Lightheadedness (Acute) Morbid obesity with body mass index (BMI) greater than or equal to 50 (Chronic) Patel is lost about 70 pounds. Lung mass (Chronic) Chronic kidney disease (CKD), stage IV (severe) (Chronic) Wound, open, breast (Acute) Dysuria-frequency syndrome (Acute) Morbid obesity with BMI of 50.0-59.9, adult (Chronic) Vascular insufficiency of limb (Acute) Left lower extremity Ischemic pain of left foot (Acute) Diabetic autonomic neuropathy associated with type 2 diabetes mellitus (Chronic) Feet are now anesthetic. Degenerative arthritis (Chronic) DDD (degenerative disc disease), lumbar (Chronic) Low back pain (Chronic) ESRD (end stage renal disease) (Chronic) Muscle spasm (Resolved) Possibly from the statin. Acute serous otitis media of left ear (Chronic) Has had decreased hearing and intermittent pain in the L ear for the past 1 month Morbid obesity with BMI of 60.0-69.9, adult (Chronic) IDDM (insulin dependent diabetes mellitus) (Chronic) Chronic pain syndrome (Chronic) BMI 60.0-69.9, adult (Chronic) Left breast abscess (Resolved) Original I&D on 06/12/2018 BMI 60.0-69.9, adult (Acute) Severe low back pain (Chronic) Essential hypertension (Chronic) Anemia Onset Date: Unknown Aortic valve sclerosis Onset Date: Unknown Cardiomegaly Onset Date: Unknown Cardiomyopathy Onset Date: Unknown Current tobacco use 1 ppd cigars Macular edema Moderate non-proliferative diabetic retinopathy No history of alcohol use Proteinuria Onset Date: ~03/29/13 Pseudophakia Onset Date: Unknown Sleep apnea Verrucae vulgaris Onset Date: Unknown CAD (coronary artery disease) Onset Date: Unknown Chronic GERD Onset Date: Unknown Chronic renal failure, stage 3 (moderate) Onset Date: Unknown Congestive heart failure (CHF) Onset Date: ~06/27/13 Diabetes mellitus Onset Date: ~04/04/17 Heart disease Onset Date: Unknown Hyperlipidemia due to dietary fat intake Onset Date: Unknown Hypertension Onset Date: Unknown Surgical History: Surgical History (Last Reviewed 11/25/19 @ 04:33 by Chris Purvis DO) History of bunionectomy Right History of arthroplasty of right ankle History of esophagogastroduodenoscopy Onset Date: 04/19/13 [place]; clotest negative. Gastritis History of incision and drainage Onset Date: 01/11/19 01/11/19 [place]-left breast abscess Hx of arthroscopy of left knee Onset Date: Unknown x2 Hx of cataract extraction Onset Date: ~2017 bilateral Hx of colonoscopy with polypectomy Onset Date: 09/09/12 - sigmoid diverticulosis, healing anal fissure, normal colonic mucosa. Recheck in 10 years Hx of hernia repair As an ; Right inguinal hernia Family History: Family History (Last Reviewed 11/25/19 @ 04:33 by Chris Purvis DO) Father , age 67-colon cancer ca Diabetes Cancer Colon-dx age 65 and lung cancer Mother , age 73-unsure of cause Diabetes Hypertension Uncle Cancer (Paternal) Colon Cancer Grandmother Cancer (Paternal) Colon cancer Grandfather Cancer (Maternal) Colon Cancer Aunt Cancer (Paternal) Lung Cancer Brother Diabetes Hypertension Brother Alive and well Brother Alive and well Brother Alive and well Social History: (Last Reviewed 11/25/19 @ 04:33 by Chris Purvis DO) Social History: Marital status: Single lives independently: Yes household members: none current occupational status: disabled Highest education level completed: 11th grade Service: No Tobacco: Smoking Status: Current every day smoker Smoking cigarettes per day: 1 Alcohol: alcohol intake: never Substance Use: substance use type: does not use Dietary Habits: caffeine: Yes Personal Safety: victim of physical abuse: No victim of emotional abuse: No Review Of Systems (GEN) - Review of Systems Generalized/Overall Review: Present: Weakness, Malaise EENTM: Present: No Symptoms Reported Respiratory: Present: Cough, Shortness of Breath Cardiac: Present: Chest Pain Abdominal: Present: No Symptoms Reported Genitourinary: Present: No Symptoms Reported Musculoskeletal: Present: No Symptoms Reported Neurological: Present: Weakness Skin: Present: No Symptoms Reported Endocrine: Present: Other - Insulin-dependent diabetic and blood sugar this morning 383 Immunizations: IMMUNIZATION HX Immunizations Up to Date Yes History of Influenza Vaccine Yes Hx Pneumococcal Vaccination Yes Allergies/Adverse Reactions: Allergies Allergy/AdvReac Type Severity Reaction Status Date / Time ascorbic acid Allergy Intermediate Hives Verified 11/25/19 00:59 [From Tart Talbot] Celery Seed Extract Allergy Intermediate Hives Verified 11/25/19 00:59 [From Tart Talbot] grape seed extract Allergy Intermediate Hives Verified 11/25/19 00:59 [From Tart Talbot] Sour Talbot Extract Allergy Intermediate Hives Verified 11/25/19 00:59 [From Tart Talbot] fenofibrate AdvReac Intermediate muscle Verified 11/25/19 00:59 spasms rosuvastatin [From Crestor] AdvReac Intermediate muscle Verified 11/25/19 00:59 spasms cherries Allergy Severe "big boils" Uncoded 11/25/19 00:59 Home Medications: HOME MEDICATIONS Aspirin 325 mg PO DAILY 06/14/14 [Last Taken 01/10/19] meclizine 25 mg chewable tablet 25 mg PO TID PRN #90 tab 07/14/19 [Last Taken Unknown] insulin glargine 100 unit/mL subcutaneous solution 80 unit SUBCUT QAM #30 ml 08/11/19 [Last Taken Unknown] nitroglycerin 0.4 mg sublingual tablet 0.4 mg SL Q5MIN PRN #25 tab 08/11/19 [Last Taken Unknown] Acetaminophen [Non-Aspirin Extra Strength] 1,000 mg PO Q6H PRN 09/09/19 [Last Taken Unknown] Insulin NPH Hum/Reg Insulin Hm [Humulin 70-30] 30 units SC BIDWM 09/09/19 [Last Taken Unknown] Metoprolol Succinate [Toprol Xl] 100 mg PO . AT 6 AM 09/09/19 [Last Taken Unknown] Pravastatin Sodium 10 mg PO DAILY 09/09/19 [Last Taken 11/24/19 21:00] Morphine Sulfate [Arymo ER] 60 mg PO Q12H PRN 10/30/19 [Last Taken Unknown] Clopidogrel Bisulfate [Plavix] 75 mg PO DAILY 11/25/19 [Last Taken Unknown] Docusate Sodium [Colace] 100 mg PO DAILY 11/25/19 [Last Taken 11/24/19 09:00] Ferrous Sulfate [Iron] 325 mg PO 11/25/19 [Last Taken Unknown] Furosemide [Lasix] 40 mg PO DAILY 11/25/19 [Last Taken Unknown] Pantoprazole Sodium 40 mg PO BID 11/25/19 [Last Taken Unknown] Exam - Exam Vital Signs: Vital Signs - Last Taken Temp 36.6 C 11/25/19 07:00 Pulse 85 11/25/19 07:00 Resp 20 11/25/19 07:00 BP 155/71 H 11/25/19 07:00 Pulse Ox 99 11/25/19 07:00 Constitutional: Present: Alert, Oriented x3, Cooperative, Well developed, Well nourished, Mild distress, Morbidly obese, Looks Older than stated age ENT Exam: Present: normal ENT inspection, hearing grossly normal, pharynx normal, TMs normal Eye Exam: bilateral eye: normal inspection, PERRL, EOMI Neck: Present: non-tender, full range of motion, supple Back Exam: Present: normal inspection, no CVA tenderness, no vertebral tenderness Breasts: Present: Nontender Respiratory: Present: decreased breath sounds, rales, rhonchi, wheezing, expiration (prolonged) Cardiovascular/Chest: Present: normal peripheral pulses, regular rate, rhythm, no chest tenderness, JVD, extra beats, edema Peripheral Pulses: carotid (R): 2+, carotid (L): 2+, radial (R): 2+, radial (L): 2+ Abdomen: Present: Normal bowel sounds, nontender, nondistended, no rebound tenderness, no hepatospenomegaly, no masses, obese /Rectal: Present: Exam deferred Extremity: Present: non-tender, normal inspection, no pedal edema, no calf tenderness, lower extremity edema, slow capillary refill. 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 Appearance: Present: appropriate appearance, appropriate insight, neat, no memory impairment Eye contact: Present: cooperative, good eye contact, normal speech Thoughts: Present: normal thought pattern, no apparent hallucination Diagnostic Studies: Abnormal Lab Results 11/25/19 11/25/19 11/25/19 Range/Units 01:10 01:20 01:20 WBC 12.3 H (4.0-10.5) K/mm3 RBC 3.71 L (4.7-6.0) M/mm3 Hgb 8.8 L (13.5-18.0) gm/dL Hct 30.3 L (42.0-52.0) % MCH 23.7 L (27-31) pg MCHC 29.0 L (32-36) g/dl RDW 19.4 H (11.5-14.0) % Immature Gran % (Auto) 0.50 H (0.001-0.429) % Immature Gran # (Auto) 0.06 H (0.000-0.0310) K/mm3 Neutrophils % 80.3 H (42-75.0) % Lymphocytes % 9.3 L (20-51) % Neutrophils # 9.9 H (1.3-6.0) K/mm3 Lymphocytes # 1.14 L (1.5-3.5) k/mm3 pCO2 52.8 H (35.0-48.0) mmHg pO2 66.9 L (83.0-108.0) mmHg HCO3 18.6 L (21.0-28.0) mmol/L Base Excess -9.8 L (-2.0-3.0) mmol/L ABG pH 7.17 L* (7.35-7.45) ABG O2 Sat (Measured) 87.6 L (94.0-98.0) % Potassium 4.8 H (3.4-4.6) mmol/L Carbon Dioxide 20.8 L (24-32.6) mmol/L Anion Gap 18.0 H (6.8-13.8) mmol/L BUN 65 H (6-23) mg/dL Creatinine 2.42 H (0.4-1.4) mg/dL Est GFR (Non-Af Amer) 29 L (60-130) mL/min BUN/Creatinine Ratio 26.9 H (9.0-21.6) Random Glucose 445 H (70-110) mg/dL Lactic Acid, Venous (0.4-2.0) mmol/L B-Natriuretic Peptide 6613 H (5-175) pg/mL Albumin 3.2 L (3.4-5.0) gm/dl 11/25/19 Range/Units 01:20 WBC (4.0-10.5) K/mm3 RBC (4.7-6.0) M/mm3 Hgb (13.5-18.0) gm/dL Hct (42.0-52.0) % MCH (27-31) pg MCHC (32-36) g/dl RDW (11.5-14.0) % Immature Gran % (Auto) (0.001-0.429) % Immature Gran # (Auto) (0.000-0.0310) K/mm3 Neutrophils % (42-75.0) % Lymphocytes % (20-51) % Neutrophils # (1.3-6.0) K/mm3 Lymphocytes # (1.5-3.5) k/mm3 pCO2 (35.0-48.0) mmHg pO2 (83.0-108.0) mmHg HCO3 (21.0-28.0) mmol/L Base Excess (-2.0-3.0) mmol/L ABG pH (7.35-7.45) ABG O2 Sat (Measured) (94.0-98.0) % Potassium (3.4-4.6) mmol/L Carbon Dioxide (24-32.6) mmol/L Anion Gap (6.8-13.8) mmol/L BUN (6-23) mg/dL Creatinine (0.4-1.4) mg/dL Est GFR (Non-Af Amer) (60-130) mL/min BUN/Creatinine Ratio (9.0-21.6) Random Glucose (70-110) mg/dL Lactic Acid, Venous 2.2 H* (0.4-2.0) mmol/L B-Natriuretic Peptide (5-175) pg/mL Albumin (3.4-5.0) gm/dl Laboratory Results WBC 12.3 K/mm3 (4.0-10.5) H 11/25/19 01:20 RBC 3.71 M/mm3 (4.7-6.0) L 11/25/19 01:20 Hgb 8.8 gm/dL (13.5-18.0) L 11/25/19 01:20 Hct 30.3 % (42.0-52.0) L 11/25/19 01:20 MCV 81.7 fl (78-100) 11/25/19 01:20 MCH 23.7 pg (27-31) L 11/25/19 01:20 MCHC 29.0 g/dl (32-36) L 11/25/19 01:20 RDW 19.4 % (11.5-14.0) H 11/25/19 01:20 Plt Count 396 K/mm3 (150-450) 11/25/19 01:20 MPV 8.9 fl (8-11.3) 11/25/19 01:20 Immature Gran % (Auto) 0.50 % (0.001-0.429) H 11/25/19 01:20 Immature Gran # (Auto) 0.06 K/mm3 (0.000-0.0310) H 11/25/19 01:20 Neutrophils % 80.3 % (42-75.0) H 11/25/19 01:20 Lymphocytes % 9.3 % (20-51) L 11/25/19 01:20 Monocytes % 7.6 % (0.0-9) 11/25/19 01:20 Eosinophils % 2.0 % (0.0-3.0) 11/25/19 01:20 Basophils % 0.3 % (0.0-1.0) 11/25/19 01:20 Nucleated RBC % 0.0 k/mm3 (0-1) 11/25/19 01:20 Neutrophils # 9.9 K/mm3 (1.3-6.0) H 11/25/19 01:20 Lymphocytes # 1.14 k/mm3 (1.5-3.5) L 11/25/19 01:20 Monocytes # 0.9 k/mm3 (0.0-1.0) 11/25/19 01:20 Eosinophils # 0.3 k/mm3 (0.0-0.7) 11/25/19 01:20 Absolute Basophils 0.0 k/mm3 (0.0-0.1) 11/25/19 01:20 pCO2 52.8 mmHg (35.0-48.0) H 11/25/19 01:10 pO2 66.9 mmHg (83.0-108.0) L 11/25/19 01:10 HCO3 18.6 mmol/L (21.0-28.0) L 11/25/19 01:10 Total CO2 20.2 mmol/L (19.0-24.0) 11/25/19 01:10 Base Excess -9.8 mmol/L (-2.0-3.0) L 11/25/19 01:10 ABG pH 7.17 (7.35-7.45) L* 11/25/19 01:10 ABG O2 Sat (Measured) 87.6 % (94.0-98.0) L 11/25/19 01:10 Sodium 134 mmol/L (132-142) 11/25/19 01:20 Plasma Sodium 140 mmol/L (130-142) 11/25/19 01:20 Potassium 4.8 mmol/L (3.4-4.6) H 11/25/19 01:20 Chloride 100 mmol/L (97-106) 11/25/19 01:20 Carbon Dioxide 20.8 mmol/L (24-32.6) L 11/25/19 01:20 Anion Gap 18.0 mmol/L (6.8-13.8) H 11/25/19 01:20 BUN 65 mg/dL (6-23) H 11/25/19 01:20 Creatinine 2.42 mg/dL (0.4-1.4) H 11/25/19 01:20 Est GFR (Non-Af Amer) 29 mL/min (60-130) L 11/25/19 01:20 BUN/Creatinine Ratio 26.9 (9.0-21.6) H 11/25/19 01:20 Random Glucose 445 mg/dL (70-110) H 11/25/19 01:20 Lactic Acid, Venous 1.7 mmol/L (0.4-2.0) 11/25/19 04:25 Calcium 8.5 mg/dL (7.9-10.9) 11/25/19 01:20 Calcium Adj for Albumin 8.8 mg/dL (8.4-10.2) 11/25/19 01:20 Total Bilirubin 0.1 mg/dL (0.0-1.1) 11/25/19 01:20 AST 14 U/L (0-48) 11/25/19 01:20 ALT 21 U/L (19-67) 11/25/19 01:20 Alkaline Phosphatase 112 U/L (50-170) 11/25/19 01:20 Troponin I 0.044 ng/mL (0.00-0.10) 11/25/19 01:20 B-Natriuretic Peptide 6613 pg/mL (5-175) H 11/25/19 01:20 Total Protein 7.8 gm/dL (6.2-8.2) 11/25/19 01:20 Albumin 3.2 gm/dl (3.4-5.0) L 11/25/19 01:20 Influenza Type A Ag Negative (NEGATIVE) 11/25/19 01:10 Influenza Type B Ag Negative (NEGATIVE) 11/25/19 01:10 Assessment/Plan - Narrative Narrative: 1. Respiratory therapy 2. Diurese 3. Incentive spirometry 4. Merline flutter device 5. Arrange for home oxygen 6. Restart his insulins and get his blood sugar under 200 7. Continue most of his home meds as reconciled - Assessment/Plan (1) Acute respiratory failure with hypoxia and hypercapnia Problem: Acute (2) CHF (congestive heart failure) Problem: Resolved Qualifiers: Heart failure type: diastolic Heart failure chronicity: acute on chronic Qualified Code(s): I50.33 - Acute on chronic diastolic (congestive) heart failure (3) Nocturnal hypoxemia Problem: Acute (4) Lung cancer Problem: Chronic Qualifiers: Laterality: right Lung location: middle lobe of lung Qualified Code(s): C34.2 - Malignant neoplasm of middle lobe, bronchus or lung (5) Morbid obesity with body mass index (BMI) greater than or equal to 50 Problem: Chronic (6) Chronic kidney disease (CKD), stage IV (severe) Problem: Chronic (7) Failure of outpatient treatment Problem: Acute (8) IDDM (insulin dependent diabetes mellitus) Problem: Chronic (9) Severe low back pain Problem: Chronic (10) Essential hypertension Problem: Chronic
[2019-11-25] MEDS: ACETAMINOPHEN 500 MG TABLET PO SCH ×2 (09:15→17:01)
[2019-11-25] MEDS: ASPIRIN 325 MG TABLET.DR PO SCH (09:15)
[2019-11-25] MEDS: DOCUSATE SODIUM 100 MG CAPSULE PO SCH (09:16)
[2019-11-25] MEDS: FERROUS SULFATE 325 MG TABLET PO SCH (09:16)
[2019-11-25] MEDS: INSULIN GLARGINE,HUM.REC.ANLOG 100 UNITS/ML VIAL SC SCH (09:18)
[2019-11-25] MEDS: FUROSEMIDE 40 MG TABLET PO SCH (09:19)
[2019-11-25] MEDS: CLOPIDOGREL BISULFATE 75 MG TABLET PO SCH (09:19)
[2019-11-25] MEDS: PANTOPRAZOLE SODIUM 40 MG TABLET.EC PO SCH ×2 (09:19→21:46)
[2019-11-25] MEDS: HUM INSULIN NPH/REG INSULIN HM 100 UNIT/ML VIAL SC SCH ×2 (09:22→17:02)
[2019-11-25] MEDS ORDERED: ALBUTEROL SULFATE 2.5 MG/0.5 ML VIAL.NEB IH PRN (09:45)
[2019-11-25] MEDS ORDERED: HUM INSULIN NPH/REG INSULIN HM 100 UNIT/ML VIAL SC ONE (12:17)
[2019-11-25] MEDS ORDERED: INSULIN LISPRO 100 UNITS/ML VIAL SC ONE (14:54)
[2019-11-25] MEDS: SIMVASTATIN 5 MG TABLET PO SCH (21:46)
[2019-11-26] MEDS: ACETAMINOPHEN 500 MG TABLET PO SCH ×3 (01:18→15:58)
[2019-11-26 06:37] LABS: Hematocrit 28.2 % (42.0-52.0); Hemoglobin 8.3 gm/dL (13.5-18.0); Mean Cell Volume 80.1 fl (78-100); Mean Corpuscular Hemoglobin 23.6 pg (27-31); Mean Corpuscular Hgb Conc 29.4 g/dl (32-36); Mean Platelet Volume 9.2 fl (8-11.3); Neutrophil # 11.5 K/mm3 (1.3-6.0); Platelet Count 362 K/mm3 (150-450); Red Blood Count 3.52 M/mm3 (4.7-6.0); Red Cell Distribution Width 19.2 % (11.5-14.0); White Blood Count 14.6 K/mm3 (4.0-10.5)
[2019-11-26 07:00] LABS: Albumin * 2.9 gm/dl (3.4-5.0); Anion Gap 15.1 mmol/L (6.8-13.8); BUN/Creatinine Ratio 32.4 (9.0-21.6); Bilirubin, Total 0.1 mg/dL (0.0-1.1); Ca. Corrected For Albumin 9.7 mg/dL (8.4-10.2); Calcium * 9.1 mg/dL (7.9-10.9); Carbon Dioxide 23.8 mmol/L (24-32.6); Potassium 4.9 mmol/L (3.4-4.6); Total Protein 7.2 gm/dL (6.2-8.2)
[2019-11-26] MEDS: ENOXAPARIN SODIUM 40 MG/0.4 ML SYRG SC SCH (08:16)
[2019-11-26] MEDS: DOCUSATE SODIUM 100 MG CAPSULE PO SCH (08:17)
[2019-11-26] MEDS: FUROSEMIDE 40 MG TABLET PO SCH (08:17)
[2019-11-26] MEDS: FERROUS SULFATE 325 MG TABLET PO SCH (08:17)
[2019-11-26] MEDS: CLOPIDOGREL BISULFATE 75 MG TABLET PO SCH (08:17)
[2019-11-26] MEDS: ASPIRIN 325 MG TABLET.DR PO SCH (08:17)
[2019-11-26] MEDS: HUM INSULIN NPH/REG INSULIN HM 100 UNIT/ML VIAL SC SCH ×2 (08:18→16:00)
[2019-11-26] MEDS: PANTOPRAZOLE SODIUM 40 MG TABLET.EC PO SCH ×2 (08:18→20:05)
[2019-11-26] MEDS: METOPROLOL SUCCINATE 100 MG TABLET.SA PO SCH (08:18)
[2019-11-26] MEDS: INSULIN GLARGINE,HUM.REC.ANLOG 100 UNITS/ML VIAL SC SCH (08:21)
[2019-11-26] MEDS ORDERED: FUROSEMIDE 10 MG/ML VIAL IV ONE (09:30)
--- NOTE | 2019-11-26 17:15 | PN ---
Subjective - Date and Time Seen Date: 11/26/19 Time: 08:30 Subjective Narrative: Patel Blackwood has had a fairly good night. He did not have any gasping episodes through the night. His lab work however,Shows the white count went up to 14,600. Hemoglobin dropped to 8.3 g. The RDW is 19.2 and the MCV is 80.1 almost certainly due to iron deficiency. The differential is shifted to the left. The potassium went up slightly to 4.9. His CO2 improved to 23.8 and the AG decreased to 15.1. BUN and creatinine are 73 and 2.25 respectively and the EGFR has improved from 29 up to 32. Blood sugars are better today with morning blood sugar of 140 which is down from 445 on admission. Liver enzymes are normal. The BNP doubled to 12,673. His albumin dropped slightly to 2.9. The chest x-ray shows an enlarged heart that is unchanged. He has a 9.2 cm pleural- based nodule in the superior segment of the right lower lobe which is already been diagnosed as a malignant tumor. Otherwise there is no acute cardiopulmonary process such as pneumonia that is visible. There is some mild hyperinflation of the lungs reflective of his COPD. Objective - Review of Systems Generalized/Overall Review: Reports: Weakness, Malaise EENTM: Reports: No Symptoms Reported Respiratory: Reports: Cough - Much more productive today, Shortness of Breath Cardiac: Reports: No Symptoms Reported Abdominal: Reports: No Symptoms Reported Genitourinary Symptoms: Reports: No Symptoms Reported Musculoskeletal Complaints: Reports: No Symptoms Reported Neurological: Reports: No Symptoms Reported Skin: Reports: No Symptoms Reported Endocrine: Reports: No Symptoms Reported - Vitals Vitals: Last Vital Signs Temp 37.0 C 11/26/19 14:48 Pulse 71 11/26/19 14:48 Resp 18 11/26/19 14:48 BP 116/58 11/26/19 14:48 Pulse Ox 97 11/26/19 14:48 - Abnormal Lab Findings Abnormal Lab Findings: Abnormal Lab Results 11/26/19 11/26/19 Range/Units 06:15 06:15 WBC 14.6 H (4.0-10.5) K/mm3 RBC 3.52 L (4.7-6.0) M/mm3 Hgb 8.3 L (13.5-18.0) gm/dL Hct 28.2 L (42.0-52.0) % MCH 23.6 L (27-31) pg MCHC 29.4 L (32-36) g/dl RDW 19.2 H (11.5-14.0) % Immature Gran % (Auto) 0.60 H (0.001-0.429) % Immature Gran # (Auto) 0.09 H (0.000-0.0310) K/mm3 Neutrophils % 79.0 H (42-75.0) % Lymphocytes % 10.8 L (20-51) % Neutrophils # 11.5 H (1.3-6.0) K/mm3 Monocytes # 1.3 H (0.0-1.0) k/mm3 Potassium 4.9 H (3.4-4.6) mmol/L Carbon Dioxide 23.8 L (24-32.6) mmol/L Anion Gap 15.1 H (6.8-13.8) mmol/L BUN 73 H (6-23) mg/dL Creatinine 2.25 H (0.4-1.4) mg/dL Est GFR (Non-Af Amer) 32 L (60-130) mL/min BUN/Creatinine Ratio 32.4 H (9.0-21.6) Random Glucose 140 H D (70-110) mg/dL ALT 18 L (19-67) U/L B-Natriuretic Peptide 81866 H (5-175) pg/mL Albumin 2.9 L (3.4-5.0) gm/dl - EKG/Xray Findings EKG: NSR XRAY: facial bones - Exam Constitutional: Present: Alert, Oriented x3, Cooperative, Well developed, Well nourished, Middle aged, Morbidly obese, Looks Older than stated age ENT Exam: Present: normal ENT inspection Neck: Present: non-tender Breasts: Present: Exam deferred Respiratory: Present: chest non-tender, decreased breath sounds, rales, expiration (prolonged) Cardiovascular/Chest: Present: normal peripheral pulses, regular rate, rhythm, no chest tenderness, edema Abdomen: Present: Normal bowel sounds, soft, nontender, nondistended, no rebound tenderness, no hepatospenomegaly, no masses, obese /Rectal: Present: Exam deferred Extremity: Present: normal range of motion, non-tender, normal inspection, no pedal edema, no calf tenderness, normal capillary refill Skin Exam: Present: normal color, warm/dry, no cyanosis Lymphatic: Present: no adenopathy 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, normal cerebellar test, no motor/sensory deficits, alert, normal mood/affect, oriented x 3 Appearance: Present: appropriate appearance, appropriate insight, neat Eye contact: Present: cooperative, good eye contact, normal speech, avoids eye contact Thoughts: Present: normal thought pattern, no apparent hallucination Assessment/Plan - Problems/Diagnosis (1) Acute respiratory failure with hypoxia and hypercapnia Problem: Acute (2) CHF (congestive heart failure) Problem: Resolved Qualifiers: Heart failure type: diastolic Heart failure chronicity: acute on chronic Qualified Code(s): I50.33 - Acute on chronic diastolic (congestive) heart failure (3) Nocturnal hypoxemia Problem: Acute (4) Lung cancer Problem: Chronic Qualifiers: Laterality: right Lung location: middle lobe of lung Qualified Code(s): C34.2 - Malignant neoplasm of middle lobe, bronchus or lung (5) Morbid obesity with body mass index (BMI) greater than or equal to 50 Problem: Chronic (6) Chronic kidney disease (CKD), stage IV (severe) Problem: Chronic (7) Failure of outpatient treatment Problem: Acute (8) IDDM (insulin dependent diabetes mellitus) Problem: Chronic (9) Severe low back pain Problem: Chronic (10) Essential hypertension Problem: Chronic
[2019-11-26] MEDS: SIMVASTATIN 5 MG TABLET PO SCH (20:06)
[2019-11-27] MEDS: ACETAMINOPHEN 500 MG TABLET PO SCH ×4 (01:01→23:53)
[2019-11-27] MEDS: ENOXAPARIN SODIUM 40 MG/0.4 ML SYRG SC SCH (08:15)
[2019-11-27] MEDS: ASPIRIN 325 MG TABLET.DR PO SCH (08:16)
[2019-11-27] MEDS: PANTOPRAZOLE SODIUM 40 MG TABLET.EC PO SCH ×2 (08:16→20:19)
[2019-11-27] MEDS: CLOPIDOGREL BISULFATE 75 MG TABLET PO SCH (08:16)
[2019-11-27] MEDS: FERROUS SULFATE 325 MG TABLET PO SCH (08:16)
[2019-11-27] MEDS: METOPROLOL SUCCINATE 100 MG TABLET.SA PO SCH (08:16)
[2019-11-27] MEDS: FUROSEMIDE 40 MG TABLET PO SCH (08:17)
[2019-11-27] MEDS: DOCUSATE SODIUM 100 MG CAPSULE PO SCH (08:17)
[2019-11-27] MEDS: INSULIN GLARGINE,HUM.REC.ANLOG 100 UNITS/ML VIAL SC SCH (08:26)
[2019-11-27 08:30] LABS: Hematocrit 30.2 % (42.0-52.0); Mean Cell Volume 78.4 fl (78-100); Mean Corpuscular Hemoglobin 23.4 pg (27-31); Mean Corpuscular Hgb Conc 29.8 g/dl (32-36); Mean Platelet Volume 8.6 fl (8-11.3); Neutrophil # 8.1 K/mm3 (1.3-6.0); Neutrophil % 72.8 % (42-75.0); Platelet Count 361 K/mm3 (150-450); Red Blood Count 3.85 M/mm3 (4.7-6.0); Red Cell Distribution Width 19.1 % (11.5-14.0); White Blood Count 11.1 K/mm3 (4.0-10.5)
[2019-11-27 08:42] LABS: Anion Gap 14.3 mmol/L (6.8-13.8); BUN/Creatinine Ratio 34.2 (9.0-21.6); Bilirubin, Total 0.2 mg/dL (0.0-1.1); Ca. Corrected For Albumin 9.6 mg/dL (8.4-10.2); Calcium * 9.1 mg/dL (7.9-10.9); Carbon Dioxide 24.4 mmol/L (24-32.6); Potassium 4.7 mmol/L (3.4-4.6); Total Protein 7.4 gm/dL (6.2-8.2)
[2019-11-27] MEDS: LEVOFLOXACIN IN DEXTROSE 5 % 750 MG/150 ML BAG IV SCH (09:46)
[2019-11-27] MEDS: HUM INSULIN NPH/REG INSULIN HM 100 UNIT/ML VIAL SC SCH ×2 (11:31→17:06)
[2019-11-27] MEDS ORDERED: NICOTINE 14 MG PATC TD SCH (15:15)
--- NOTE | 2019-11-27 15:31 | PN ---
Subjective - Date and Time Seen Date: 11/27/19 Time: 09:15 Subjective Narrative: no acute events overnight. Patient is feeling better Objective - Review of Systems Generalized/Overall Review: Denies: Weakness EENTM: Reports: No Symptoms Reported Respiratory: Reports: Shortness of Breath Cardiac: Denies: Chest Pain Abdominal: Reports: No Symptoms Reported Genitourinary Symptoms: Reports: No Symptoms Reported Musculoskeletal Complaints: Reports: No Symptoms Reported Neurological: Reports: No Symptoms Reported Skin: Reports: No Symptoms Reported Endocrine: Reports: No Symptoms Reported - Vitals Vitals: Last Vital Signs Temp 36.8 C 11/27/19 15:00 Pulse 76 11/27/19 15:00 Resp 20 11/27/19 15:00 BP 121/74 11/27/19 15:00 Pulse Ox 100 11/27/19 15:00 - Abnormal Lab Findings Abnormal Lab Findings: Abnormal Lab Results 11/27/19 11/27/19 Range/Units 08:23 08:23 WBC 11.1 H D (4.0-10.5) K/mm3 RBC 3.85 L (4.7-6.0) M/mm3 Hgb 9.0 L (13.5-18.0) gm/dL Hct 30.2 L (42.0-52.0) % MCH 23.4 L (27-31) pg MCHC 29.8 L (32-36) g/dl RDW 19.1 H (11.5-14.0) % Immature Gran # (Auto) 0.04 H (0.000-0.0310) K/mm3 Lymphocytes % 13.8 L (20-51) % Monocytes % 9.5 H (0.0-9) % Eosinophils % 3.2 H (0.0-3.0) % Neutrophils # 8.1 H (1.3-6.0) K/mm3 Monocytes # 1.1 H (0.0-1.0) k/mm3 Potassium 4.7 H (3.4-4.6) mmol/L Anion Gap 14.3 H (6.8-13.8) mmol/L BUN 76 H (6-23) mg/dL Creatinine 2.22 H (0.4-1.4) mg/dL Est GFR (Non-Af Amer) 32 L (60-130) mL/min BUN/Creatinine Ratio 34.2 H (9.0-21.6) Random Glucose 171 H (70-110) mg/dL ALT 17 L (19-67) U/L Albumin 3.0 L (3.4-5.0) gm/dl - Exam Constitutional: Present: Alert, Oriented x3, Cooperative, Morbidly obese ENT Exam: Present: hearing grossly normal Neck: Present: full range of motion, supple Respiratory: Present: lungs clear, normal breath sounds Cardiovascular/Chest: Present: normal peripheral pulses, regular rate, rhythm Abdomen: Present: Normal bowel sounds, soft, nontender Extremity: Present: normal range of motion, non-tender, normal inspection Skin Exam: Present: normal color Neurologic: Present: alert, oriented x 3 Appearance: Present: appropriate appearance Eye contact: Present: cooperative Thoughts: Present: normal thought pattern Assessment/Plan Plan Narrative: Patient is doing well. Willtransition to po antibiotics in AM Diuresed well Disposition: - Will discharge tomorrow morni. - Problems/Diagnosis (1) CHF (congestive heart failure) Problem: Resolved Qualifiers: Heart failure type: diastolic Heart failure chronicity: acute on chronic Qualified Code(s): I50.33 - Acute on chronic diastolic (congestive) heart failure (2) Pneumonia Problem: Suspected Qualifiers: Pneumonia type: due to unspecified organism Laterality: right Lung location: lower lobe of lung Qualified Code(s): J18.9 - Pneumonia, unspecified organism
[2019-11-27] MEDS: SIMVASTATIN 5 MG TABLET PO SCH (20:19)
[2019-11-28 05:39] LABS: Hematocrit 30.1 % (42.0-52.0); Mean Corpuscular Hemoglobin 23.6 pg (27-31); Mean Corpuscular Hgb Conc 29.9 g/dl (32-36); Mean Platelet Volume 9.4 fl (8-11.3); Neutrophil # 9.4 K/mm3 (1.3-6.0); Neutrophil % 79.8 % (42-75.0); Platelet Count 349 K/mm3 (150-450); Red Blood Count 3.81 M/mm3 (4.7-6.0); Red Cell Distribution Width 19.6 % (11.5-14.0); White Blood Count 11.8 K/mm3 (4.0-10.5)
[2019-11-28 05:44] LABS: Anion Gap 10.6 mmol/L (6.8-13.8); BUN/Creatinine Ratio 33.8 (9.0-21.6); Bilirubin, Total 0.2 mg/dL (0.0-1.1); Ca. Corrected For Albumin 9.7 mg/dL (8.4-10.2); Calcium * 9.2 mg/dL (7.9-10.9); Carbon Dioxide 26.1 mmol/L (24-32.6); Potassium 4.7 mmol/L (3.4-4.6)
[2019-11-28] MEDS: LEVOFLOXACIN IN DEXTROSE 5 % 750 MG/150 ML BAG IV SCH (07:14)
[2019-11-28] MEDS: ACETAMINOPHEN 500 MG TABLET PO SCH (08:21)
[2019-11-28] MEDS: ENOXAPARIN SODIUM 40 MG/0.4 ML SYRG SC SCH (08:21)
[2019-11-28] MEDS: ASPIRIN 325 MG TABLET.DR PO SCH (08:22)
[2019-11-28] MEDS: DOCUSATE SODIUM 100 MG CAPSULE PO SCH (08:22)
[2019-11-28] MEDS: FERROUS SULFATE 325 MG TABLET PO SCH (08:22)
[2019-11-28] MEDS: HUM INSULIN NPH/REG INSULIN HM 100 UNIT/ML VIAL SC SCH (08:23)
[2019-11-28] MEDS: INSULIN GLARGINE,HUM.REC.ANLOG 100 UNITS/ML VIAL SC SCH (08:23)
[2019-11-28] MEDS: CLOPIDOGREL BISULFATE 75 MG TABLET PO SCH (08:23)
[2019-11-28] MEDS: FUROSEMIDE 40 MG TABLET PO SCH (08:23)
[2019-11-28] MEDS: PANTOPRAZOLE SODIUM 40 MG TABLET.EC PO SCH (08:24)
[2019-11-28] MEDS: METOPROLOL SUCCINATE 100 MG TABLET.SA PO SCH (08:24)
--- NOTE | 2019-11-28 12:08 | DS ---
(1) CHF (congestive heart failure) Problem: Resolved Qualifiers: Heart failure type: diastolic Heart failure chronicity: acute on chronic Qualified Code(s): I50.33 - Acute on chronic diastolic (congestive) heart failure (2) Pneumonia Problem: Resolved Qualifiers: Pneumonia type: due to unspecified organism Laterality: right Lung location: lower lobe of lung Qualified Code(s): J18.9 - Pneumonia, unspecified organism Date of Discharge:: 11/28/19 Hospital Course: liana Blackwood is a 58-year-old morbidly obese gentleman recently diagnosed with RUL Squamous Cell Carcinoma presented to the ER with SOB progressively getting worse and not responding to breathing treatments at home. The chest x-ray only reveals the large right lung cancer, interstitial edema and pulmonary vascular congestion which more favors congestive heart failure. Along with labs patient diagnosed with Pneumonia and Hypoxic and Hypercapnic respiratory failure secondary CHF and PNA. With breathing treatments and diuresis his ventilation improved. Patient was due to start his radiation treatments on day of admission and it had been delayed starting treatment because of poor renal status. Upon discharge patient will start with radiation followed by chemo in [place] with his Medical Oncologist in [place] Admitted for Hypoxic and Hypercapnic respiratory failure secondary CHF and PNA. Patient received breathing treatments, and Levaquin 750 IV day #2/7 and diuresed well. Advised will discharge with Levaquin 750 mg PO X 5 days and to follow up with PCP: Dr. Isidro Procedures Performed: none Care Plan Goals: Follow up with Medical Oncologist for treatment Plan of Treatment: Complete antibiotic course Levaquin 750 mg daily x 5 days Assessment: Hypoxic, hypercapneic respiratory failure due to PNA and CHF Results and Findings: Pending Mircobiology Results 11/25/19 04:20 Blood Blood Culture - Preliminary NO GROWTH AFTER 48 HOURS 11/25/19 01:20 Blood Blood Culture - Preliminary NO GROWTH AFTER 48 HOURS Lab Pending Results 11/25/19 01:10: pCO2 52.8 H, pO2 66.9 L, HCO3 18.6 L, Total CO2 20.2, Base Excess -9.8 L, ABG pH 7.17 L*, ABG O2 Sat (Measured) 87.6 L 11/25/19 01:10: Influenza Type A Ag Negative, Influenza Type B Ag Negative 11/25/19 01:20: WBC 12.3 H, RBC 3.71 L, Hgb 8.8 L, Hct 30.3 L, MCV 81.7, MCH 23.7 L, MCHC 29.0 L, RDW 19.4 H, Plt Count 396, MPV 8.9, Immature Gran % (Auto) 0.50 H, Immature Gran # (Auto) 0.06 H, Neutrophils % 80.3 H, Lymphocytes % 9.3 L, Monocytes % 7.6, Eosinophils % 2.0, Basophils % 0.3, Nucleated RBC % 0.0, Neutrophils # 9.9 H, Lymphocytes # 1.14 L, Monocytes # 0.9, Eosinophils # 0.3, Absolute Basophils 0.0 11/25/19 01:20: Sodium 134, Plasma Sodium 140, Potassium 4.8 H, Chloride 100, Carbon Dioxide 20.8 L, Anion Gap 18.0 H, BUN 65 H, Creatinine 2.42 H, Est GFR (Non-Af Amer) 29 L, BUN/Creatinine Ratio 26.9 H, Random Glucose 445 H, Calcium 8.5, Calcium Adj for Albumin 8.8, Total Bilirubin 0.1, AST 14, ALT 21, Alkaline Phosphatase 112, Troponin I 0.044, B-Natriuretic Peptide 6613 H, Total Protein 7.8, Albumin 3.2 L 11/25/19 01:20: Lactic Acid, Venous 2.2 H* 11/25/19 04:25: Lactic Acid, Venous 1.7 11/26/19 06:15: WBC 14.6 H, RBC 3.52 L, Hgb 8.3 L, Hct 28.2 L, MCV 80.1, MCH 23.6 L, MCHC 29.4 L, RDW 19.2 H, Plt Count 362, MPV 9.2, Immature Gran % (Auto) 0.60 H, Immature Gran # (Auto) 0.09 H, Neutrophils % 79.0 H, Lymphocytes % 10.8 L, Monocytes % 8.8, Eosinophils % 0.7, Basophils % 0.1, Nucleated RBC % 0.0, Neutrophils # 11.5 H, Lymphocytes # 1.58, Monocytes # 1.3 H, Eosinophils # 0.1, Absolute Basophils 0.0 11/26/19 06:15: Sodium 135, Plasma Sodium 136, Potassium 4.9 H, Chloride 101, Carbon Dioxide 23.8 L, Anion Gap 15.1 H, BUN 73 H, Creatinine 2.25 H, Est GFR (Non-Af Amer) 32 L, BUN/Creatinine Ratio 32.4 H, Random Glucose 140 H D, Calcium 9.1, Calcium Adj for Albumin 9.7, Total Bilirubin 0.1, AST 15, ALT 18 L, Alkaline Phosphatase 81, B-Natriuretic Peptide 47696 H, Total Protein 7.2, Albumin 2.9 L 11/27/19 08:23: WBC 11.1 H D, RBC 3.85 L, Hgb 9.0 L, Hct 30.2 L, MCV 78.4, MCH 23.4 L, MCHC 29.8 L, RDW 19.1 H, Plt Count 361, MPV 8.6, Immature Gran % (Auto) 0.40, Immature Gran # (Auto) 0.04 H, Neutrophils % 72.8, Lymphocytes % 13.8 L, Monocytes % 9.5 H, Eosinophils % 3.2 H, Basophils % 0.3, Nucleated RBC % 0.0, Neutrophils # 8.1 H, Lymphocytes # 1.53, Monocytes # 1.1 H, Eosinophils # 0.4, Absolute Basophils 0.0 11/27/19 08:23: Sodium 133, Plasma Sodium 134, Potassium 4.7 H, Chloride 99, Carbon Dioxide 24.4, Anion Gap 14.3 H, BUN 76 H, Creatinine 2.22 H, Est GFR (Non-Af Amer) 32 L, BUN/Creatinine Ratio 34.2 H, Random Glucose 171 H, Calcium 9.1, Calcium Adj for Albumin 9.6, Total Bilirubin 0.2, AST 11, ALT 17 L, Alkaline Phosphatase 82, Total Protein 7.4, Albumin 3.0 L 11/28/19 04:30: WBC 11.8 H, RBC 3.81 L, Hgb 9.0 L, Hct 30.1 L, MCV 79.0, MCH 23.6 L, MCHC 29.9 L, RDW 19.6 H, Plt Count 349, MPV 9.4, Immature Gran % (Auto) 0.60 H, Immature Gran # (Auto) 0.07 H, Neutrophils % 79.8 H, Lymphocytes % 7.5 L, Monocytes % 9.8 H, Eosinophils % 2.0, Basophils % 0.3, Nucleated RBC % 0.0, Neutrophils # 9.4 H, Lymphocytes # 0.89 L, Monocytes # 1.2 H, Eosinophils # 0.2, Absolute Basophils 0.0 11/28/19 04:30: Sodium 130 L, Plasma Sodium 132, Potassium 4.7 H, Chloride 98, Carbon Dioxide 26.1, Anion Gap 10.6, BUN 75 H, Creatinine 2.22 H, Est GFR (Non- Af Amer) 32 L, BUN/Creatinine Ratio 33.8 H, Random Glucose 227 H D, Calcium 9.2, Calcium Adj for Albumin 9.7, Total Bilirubin 0.2, AST 12, ALT 16 L, Alkaline Phosphatase 80, Total Protein 7.0, Albumin 3.0 L Discharge Location: Home Disposition: Home Health Service Condition: Stable Discharge Activity: Activity as tolerated Discharge Diet: Low salt Referrals: Ryan Isidro DO [Primary Care Provider] - One Week (Hospital follow up ) Additional Patient Instructions (free text): Has [facility] ongoing, please call and fax discharge information to them. Complete Home Medications List: Complete Home Medication List: Aspirin 325 mg PO DAILY 06/14/14 meclizine 25 mg chewable tablet 25 mg PO TID PRN #90 tab 07/14/19 insulin glargine 100 unit/mL subcutaneous solution 80 unit SUBCUT QAM #30 ml 08/11/19 nitroglycerin 0.4 mg sublingual tablet 0.4 mg SL Q5MIN PRN #25 tab 08/11/19 Acetaminophen [Non-Aspirin Extra Strength] 1,000 mg PO Q6H PRN 09/09/19 Insulin NPH Hum/Reg Insulin Hm [Humulin 70-30] 30 units SC BIDWM 09/09/19 Metoprolol Succinate [Toprol Xl] 100 mg PO . AT 6 AM 09/09/19 Pravastatin Sodium 10 mg PO DAILY 09/09/19 Morphine Sulfate [Arymo ER] 60 mg PO Q12H PRN 10/30/19 Clopidogrel Bisulfate [Plavix] 75 mg PO DAILY 11/25/19 Docusate Sodium [Colace] 100 mg PO DAILY 11/25/19 Ferrous Sulfate [Iron] 325 mg PO 11/25/19 Furosemide [Lasix] 40 mg PO DAILY 11/25/19 Pantoprazole Sodium 40 mg PO BID 11/25/19 Levofloxacin [Levaquin] 750 mg PO DAILY 5 Days #5 tab 11/28/19
[2019-11-28 12:44] VITALS: BP 130/64
== END 2019-11-28 12:40 | disposition home health service (06) | DRG 291 ==
LOC: ER 00:42 → MS 02:05
PROVIDERS: ADMIT Family Medicine; ATTEND Family Medicine
DX: E11.22 Type 2 diabetes mellitus with diabetic chronic kidney disease; E66.2 Morbid (severe) obesity with alveolar hypoventilation; F17.290 Nicotine dependence, other tobacco product, uncomplicated; N18.4 Chronic kidney disease, stage 4 (severe); I50.33 Acute on chronic diastolic (congestive) heart failure; J18.9 Pneumonia, unspecified organism; R91.8 Other nonspecific abnormal finding of lung field; I13.0 Hypertensive heart and chronic kidney disease with heart failure and stage 1 through stage 4 chronic kidney disease, or unspecified chronic kidney disease; R05 Cough; G72.81 Critical illness myopathy; M54.5 Low back pain; R65.20 Severe sepsis without septic shock; J96.21 Acute and chronic respiratory failure with hypoxia; Z79.4 Long term (current) use of insulin; D72.829 Elevated white blood cell count, unspecified; J96.22 Acute and chronic respiratory failure with hypercapnia; C34.2 Malignant neoplasm of middle lobe, bronchus or lung; Z68.43 Body mass index [BMI] 50.0-59.9, adult
CPT/HCPCS: 36415; 36600; 71010; 71020; 71045; 71046; 80053; 82803; 83519; 83605; 83880; 84484; 85025; 87040; 87070; 87400; 87449; 93005; 94760; 96374; 99284; 99285

== ENCOUNTER 2020-03-26 08:57 | Inpatient (IN) ==
[2020-03-26] MEDS ORDERED: FUROSEMIDE 10 MG/ML VIAL IV ONE (09:18)
[2020-03-26 09:41] LABS: Hematocrit 34.9 % (42.0-52.0); Hemoglobin 9.9 gm/dL (13.5-18.0); Mean Cell Volume 90.2 fl (78-100); Mean Corpuscular Hemoglobin 25.6 pg (27-31); Mean Corpuscular Hgb Conc 28.4 g/dl (32-36); Mean Platelet Volume 9.2 fl (8-11.3); Neutrophil # 7.6 K/mm3 (1.3-6.0); Neutrophil % 82.8 % (42-75.0); Platelet Count 324 K/mm3 (150-450); Red Blood Count 3.87 M/mm3 (4.7-6.0); Red Cell Distribution Width 22.5 % (11.5-14.0); White Blood Count 9.2 K/mm3 (4.0-10.5)
[2020-03-26 09:53] LABS: Prothrombin Time (Patient) 10.7 Seconds (9.1-10.7)
[2020-03-26 10:03] LABS: ALT 23 U/L (19-67); AST 11 U/L (0-48); Alkaline Phosphatase * 288 U/L (50-170); Anion Gap 9.2 mmol/L (6.8-13.8); BNP * 8895 pg/mL (5-175); BUN/Creatinine Ratio 23.8 (9.0-21.6); Bilirubin, Total 0.3 mg/dL (0.0-1.1); Blood Urea Nitrogen 56 mg/dL (6-23); Ca. Corrected For Albumin 9.1 mg/dL (8.4-10.2); Calcium * 8.6 mg/dL (7.9-10.9); Carbon Dioxide 30.3 mmol/L (24-32.6); Chloride 104 mmol/L (97-106); Glucose * 295 mg/dL (70-110); Potassium 4.5 mmol/L (3.4-4.6); Sodium 139 mmol/L (132-142); Total Protein 7.8 gm/dL (6.2-8.2)
[2020-03-26 10:04] LABS: Troponin I Less than 0.017 ng/mL (0.00-0.10)
[2020-03-26 10:09] LABS: INR 1.08 INR (0.92-1.08)
[2020-03-26 10:51] LABS: Urine Appearance Clear (CLEAR); Urine Bilirubin Negative (NEGATIVE); Urine Blood Negative /ul (NEGATIVE); Urine Color Yellow; Urine Ketone Negative (NEGATIVE)
[2020-03-26 10:52] LABS: Urine Bacteria None Seen; Urine Nitrite Negative (NEGATIVE); Urine Protein 15 mg/dL (NEGATIVE); Urine RBC None Seen /hpf (0-5); Urine Urobilinogen Normal (NORMAL); Urine WBC 0-5 /hpf (0-5)
--- NOTE | 2020-03-26 11:08 | ERNOTE ---
Dyspnea - Date Date of Service: 03/26/20 - General Presenting Symptoms: shortness of breath, difficulty of breathing Time Seen by Provider: 03/26/20 09:16 Source: patient, EMS Exam Limitations: no limitations - Immun/Allergies/Home Medications Immunizations: IMMUNIZATION HX Immunizations Up to Date Yes History of Influenza Vaccine Yes Hx Pneumococcal Vaccination Yes Allergies/Adverse Reactions: Allergies ascorbic acid [From Tart Talbot] Allergy (Intermediate, Verified 03/07/20 10:07) Hives Great big boils all over his body Celery Seed Extract [From Tart Talbot] Allergy (Intermediate, Verified 03/07/20 10:07) Hives Great big boils all over his body grape seed extract [From Tart Talbot] Allergy (Intermediate, Verified 03/07/20 10:07) Hives Great big boils all over his body Sour Talbot Extract [From Tart Talbot] Allergy (Intermediate, Verified 03/07/20 10:07) Hives Great big boils all over his body fenofibrate Adverse Reaction (Intermediate, Verified 03/07/20 10:07) muscle spasms rosuvastatin [From Crestor] Adverse Reaction (Intermediate, Verified 03/07/20 10:07) muscle spasms cherries Allergy (Severe, Uncoded 02/21/20 21:00) "big boils" Home Medications: HOME MEDICATIONS Aspirin 325 mg PO DAILY 06/14/14 [Last Taken 01/10/19] meclizine 25 mg chewable tablet 25 mg PO TID PRN #90 tab 07/14/19 [Last Taken Unknown] insulin glargine 100 unit/mL subcutaneous solution 80 unit SUBCUT QAM #30 ml 08/11/19 [Last Taken Unknown] nitroglycerin 0.4 mg sublingual tablet 0.4 mg SL Q5MIN PRN #25 tab 08/11/19 [Last Taken Unknown] Acetaminophen [Non-Aspirin Extra Strength] 1,000 mg PO Q6H PRN 09/09/19 [Last Taken Unknown] Pravastatin Sodium 10 mg PO DAILY 09/09/19 [Last Taken 11/24/19 21:00] Morphine Sulfate [Arymo ER] 60 mg PO Q12H PRN 10/30/19 [Last Taken Unknown] Docusate Sodium [Colace] 100 mg PO DAILY 11/25/19 [Last Taken 11/24/19 09:00] Ferrous Sulfate [Iron] 325 mg PO DAILY 11/25/19 [Last Taken Unknown] Pantoprazole Sodium 40 mg PO BID 11/25/19 [Last Taken Unknown] furosemide 40 mg tablet 80 mg PO BID tab 12/03/19 [Last Taken Unknown] insulin human U-100 NPH-regulr 70-30 mix 100 unit/mL subcutaneous susp 30 unit SUBCUT TIDWM ml 12/03/19 [Last Taken Unknown] multivitamin 1 tab PO DAILY 12/03/19 [Last Taken Unknown] tizanidine 4 mg tablet 4 mg PO Q6H PRN #60 tab 12/21/19 [Last Taken Unknown] metoprolol succinate 100 mg tablet,extended release 24 hr 100 mg PO . AT 6 AM #30 tab 02/07/20 [Last Taken Unknown] albuterol sulfate 90 mcg/actuation aerosol inhaler 2 puff IH Q6H PRN #18 g 03/07/20 [Last Taken Unknown] mirtazapine 15 mg tablet 15 mg PO HS #30 tab 03/07/20 [Last Taken Unknown] oxybutynin chloride 10 mg tablet,extended release 24 hr 10 mg PO DAILY #30 tab 03/07/20 [Last Taken Unknown] sertraline 50 mg tablet 50 mg PO .COMPLEX #30 tab 03/07/20 [Last Taken Unknown] - History of Present Illness Narrative: patient had got up this am with acute onset of dyspnea and chest pain, recently transferred to [facility] for acute mi, unable to be stinted, deamed not a candidate for by pass, chest pain resolved with one nitro Severity: moderate Treatment PROCESS HELPER: paramedics, other - nitro Initiating event: Reports: sports/exercise Review of Systems - Review of Systems Constitutional: Present: See HPI, weakness, fatigue, malaise EYE: Present: no symptoms reported ENT: Present: no symptoms reported Respiratory: Present: See HPI, shortness of breath, orthopnea Cardiology: Present: See HPI, chest pain Gastrointestinal/Abdominal: Present: no symptoms reported Genitourinary: Present: no symptoms reported Musculoskeletal: Present: no symptoms reported Skin: Present: no symptoms reported Neurological: Present: no symptoms reported Endocrine: Present: no symptoms reported Hematologic/Lymphatic: Present: no symptoms reported Psych: Present: no symptoms reported All Other Systems: All systems neg except as marked Medical History (Last Reviewed 03/26/20 @ 09:03 by Maggie Brooke RN) Major depressive disorder (Acute) Generalized anxiety disorder with panic attacks (Acute) Urinary incontinence (Chronic) History of acute myocardial infarction (Acute) Edema (Acute) Congestive heart failure with left ventricular dysfunction (Acute) Steroid-induced hyperglycemia (Acute) Pickwickian syndrome (Chronic) Nocturnal hypoxemia (Acute) Can not tolerate CPAP or Bi-PAP. Sleeps well when in the hospital and on nasal cannula O2. Lower GI bleeding (Chronic) Colonic mass (Chronic) Nocturnal dyspnea (Chronic) Lightheadedness (Acute) Morbid obesity with body mass index (BMI) greater than or equal to 50 (Chronic) Patel is lost about 70 pounds. Lung mass (Chronic) Chronic kidney disease (CKD), stage IV (severe) (Chronic) Wound, open, breast (Acute) Dysuria-frequency syndrome (Acute) Morbid obesity with BMI of 50.0-59.9, adult (Chronic) Vascular insufficiency of limb (Acute) Left lower extremity Ischemic pain of left foot (Acute) Diabetic autonomic neuropathy associated with type 2 diabetes mellitus (Chronic) Feet are now anesthetic. Degenerative arthritis (Chronic) DDD (degenerative disc disease), lumbar (Chronic) Low back pain (Chronic) ESRD (end stage renal disease) (Chronic) Muscle spasm (Resolved) Possibly from the statin. Acute serous otitis media of left ear (Chronic) Has had decreased hearing and intermittent pain in the L ear for the past 1 month Morbid obesity with BMI of 60.0-69.9, adult (Chronic) IDDM (insulin dependent diabetes mellitus) (Chronic) Chronic pain syndrome (Chronic) BMI 60.0-69.9, adult (Chronic) Left breast abscess (Resolved) Original I&D on 06/12/2018 BMI 60.0-69.9, adult (Acute) Severe low back pain (Chronic) Essential hypertension (Chronic) Anemia Onset Date: Unknown Aortic valve sclerosis Onset Date: Unknown Cardiomegaly Onset Date: Unknown Cardiomyopathy Onset Date: Unknown Current tobacco use 1 ppd cigars Macular edema Moderate non-proliferative diabetic retinopathy No history of alcohol use Proteinuria Onset Date: ~03/29/13 Pseudophakia Onset Date: Unknown Sleep apnea Verrucae vulgaris Onset Date: Unknown CAD (coronary artery disease) Onset Date: Unknown Chronic GERD Onset Date: Unknown Chronic renal failure, stage 3 (moderate) Onset Date: Unknown Congestive heart failure (CHF) Onset Date: ~06/27/13 Diabetes mellitus Onset Date: ~04/04/17 Heart disease Onset Date: Unknown Hyperlipidemia due to dietary fat intake Onset Date: Unknown Hypertension Onset Date: Unknown Surgical History: Surgical History (Last Reviewed 03/26/20 @ 09:03 by Maggie Brooke RN) History of bunionectomy Right History of arthroplasty of right ankle History of esophagogastroduodenoscopy Onset Date: 04/19/13 [place]; clotest negative. Gastritis History of incision and drainage Onset Date: 01/11/19 01/11/19 Kayden-left breast abscess Hx of arthroscopy of left knee Onset Date: Unknown x2 Hx of cataract extraction Onset Date: ~2017 bilateral Hx of colonoscopy with polypectomy Onset Date: 09/09/12 - sigmoid diverticulosis, healing anal fissure, normal colonic mucosa. Recheck in 10 years Hx of hernia repair As an ; Right inguinal hernia Family History: Family History (Last Reviewed 03/26/20 @ 09:03 by Maggie Brokoe RN) Father , age 67-colon cancer ca Diabetes Cancer Colon-dx age 65 and lung cancer Mother , age 73-unsure of cause Diabetes Hypertension Uncle Cancer (Paternal) Colon Cancer Grandmother Cancer (Paternal) Colon cancer Grandfather Cancer (Maternal) Colon Cancer Aunt Cancer (Paternal) Lung Cancer Brother Diabetes Hypertension Brother Alive and well Brother Alive and well Brother Alive and well Social History: (Last Reviewed 03/26/20 @ 09:03 by Maggie Brooke RN) Social History: Marital status: Single lives independently: Yes household members: none current occupational status: disabled Highest education level completed: 11th grade Service: No Tobacco: Smoking Status: Current every day smoker Smoking cigarettes per day: 1 Alcohol: alcohol intake: never Substance Use: substance use type: does not use Dietary Habits: caffeine: Yes Personal Safety: victim of physical abuse: No victim of emotional abuse: No Physical Exam - Physical Exam General Appearance: Present: mild distress, anxious Head Exam: Present: normal inspection, no evidence of injury Eye Exam: Normal inspection: bilateral, PERRL: bilateral, EOMI: bilateral Ears, Nose, Throat: Present: normal ENT inspection, normal pharynx Neck: Present: normal inspection, nontender Respiratory: Present: respiratory distress, rales, rhonchi Cardiovascular/Chest: Present: irregularly irregular Gastrointestinal/Abdominal: Present: normal bowel sounds, nontender, nondistended, soft, no organomegaly Back Exam: Present: normal inspection, normal range of motion, no CVA tenderness, no vertebral tenderness Extremity Exam: Present: extremity edema Neurological Exam: Present: alert, oriented, normal mood/affect, no motor/sensory deficits Skin Exam: Present: normal color, warm/dry Lymphatic Exam: Present: no adenopathy Progress - Date and Time Seen: Date and Time: 03/26/20 11:05 patient improved, case discussed with dr kaye celis accept patient for admission - Results and Orders Patient's Lab Results:: I have reviewed the patient's lab results. - Vital Signs Patient's Vital Signs:: I have reviewed the patient's vital signs. Vital Signs: Vital Signs 03/26/20 08:58 03/26/20 09:03 03/26/20 09:21 Temperature 36.3 C Pulse Rate 124 H 117 H 108 H Respiratory Rate 24 H Blood Pressure 169/89 H 144/79 O2 Sat by Pulse Oximetry 91 L - EKG EKG #1 EKG: atrial fibrillation - X-Ray X-Ray #1 X-Ray: chest Interpretation: Interp. by ar - pulmonary edema - Progress/Reassessment Chief Complaint: Dyspnea Progress:: Improved - Transfer of Care Expected Disposition: Admit Plan - Plan Plan: to admit to hospital Departure Clinical Impression: CHF (congestive heart failure) - Departure Disposition: Short Term Hospital Inpatient Condition: Serious
[2020-03-26] MEDS ORDERED: tiZANidine HCL 4 MG TABLET PO PRN (13:29)
[2020-03-26] MEDS ORDERED: MECLIZINE HCL 25 MG TABLET PO PRN (13:29)
[2020-03-26] MEDS ORDERED: MORPHINE SULFATE 60 MG TABLET.SA PO PRN (13:29)
[2020-03-26] MEDS ORDERED: SERTRALINE HCL 50 MG TABLET PO SCH (13:30)
[2020-03-26] MEDS: METOPROLOL SUCCINATE 100 MG TABLET.SA PO SCH (14:29)
[2020-03-26] MEDS: ACETAMINOPHEN 500 MG TABLET PO PRN ×2 (14:29→20:33)
[2020-03-26] MEDS ORDERED: ALBUTEROL SULFATE 200 PUFF INHALER IH PRN (16:03)
[2020-03-26] MEDS ORDERED: HUM INSULIN NPH/REG INSULIN HM 100 UNIT/ML VIAL SC SCH (17:00)
[2020-03-26] MEDS ORDERED: INSUL NPH HU REC/INS RG HU REC 100 UNITS/ML VIAL SC SCH (17:00)
[2020-03-26] MEDS: HUM INSULIN NPH/REG INSULIN HM 100 UNIT/ML VIAL SC SCH (17:10)
--- NOTE | 2020-03-26 17:46 | HP ---
Chief Complaint - Chief Complaint Date of Service: 03/26/20 Time of Service: 17:45 Chief Complaint: shortness of breath History of Present Illness: Patient with past medical history of STEMI last month, metastatic lung cancer, hypertension, heart failure, chronic kidney disease, morbid obesity with a BMI of 60 presents with shortness of breath. For his STEMI, he was intubated for approximately 6 days, and reports not yet regaining his strength. He had some chest pain this morning, which resolved with nitro. Work-up in the ED showed signs of heart failure with fluid overload, with an elevated BNP of 8895 and lower extremity edema. Initial troponin negative, repeat of 0.027. EKG shows possible A. fib/flutter with RVR with a rate of 124 versus sinus tachycardia. At the time of my evaluation, he reports feeling better than prior to admission. He had been given 100 mg of IV Lasix. At baseline, he uses 3 L oxygen. He is currently requiring 5 LPM, and is respirating with ease and oxygenating in the upper 90s. Medical History (Last Updated 03/26/20 @ 17:44 by Kelsey Crenshaw DO) Malignant neoplasm of upper lobe, right bronchus or lung (Acute) Major depressive disorder (Acute) Generalized anxiety disorder with panic attacks (Acute) Urinary incontinence (Chronic) History of acute myocardial infarction (Acute) Edema (Acute) Congestive heart failure with left ventricular dysfunction (Acute) Steroid-induced hyperglycemia (Acute) Pickwickian syndrome (Chronic) Nocturnal hypoxemia (Acute) Can not tolerate CPAP or Bi-PAP. Sleeps well when in the hospital and on nasal cannula O2. Lower GI bleeding (Chronic) Colonic mass (Chronic) Nocturnal dyspnea (Chronic) Lightheadedness (Acute) Morbid obesity with body mass index (BMI) greater than or equal to 50 (Chronic) Patel is lost about 70 pounds. Lung mass (Chronic) Chronic kidney disease (CKD), stage IV (severe) (Chronic) Wound, open, breast (Acute) Dysuria-frequency syndrome (Acute) Morbid obesity with BMI of 50.0-59.9, adult (Chronic) Vascular insufficiency of limb (Acute) Left lower extremity Ischemic pain of left foot (Acute) Diabetic autonomic neuropathy associated with type 2 diabetes mellitus (Chronic) Feet are now anesthetic. Degenerative arthritis (Chronic) DDD (degenerative disc disease), lumbar (Chronic) Low back pain (Chronic) ESRD (end stage renal disease) (Chronic) Muscle spasm (Resolved) Possibly from the statin. Acute serous otitis media of left ear (Chronic) Has had decreased hearing and intermittent pain in the L ear for the past 1 month Morbid obesity with BMI of 60.0-69.9, adult (Chronic) IDDM (insulin dependent diabetes mellitus) (Chronic) Chronic pain syndrome (Chronic) BMI 60.0-69.9, adult (Chronic) Left breast abscess (Resolved) Original I&D on 06/12/2018 BMI 60.0-69.9, adult (Acute) Severe low back pain (Chronic) Essential hypertension (Chronic) Anemia Onset Date: Unknown Aortic valve sclerosis Onset Date: Unknown Cardiomegaly Onset Date: Unknown Cardiomyopathy Onset Date: Unknown Current tobacco use 1 ppd cigars Macular edema Moderate non-proliferative diabetic retinopathy No history of alcohol use Proteinuria Onset Date: ~03/29/13 Pseudophakia Onset Date: Unknown Sleep apnea Verrucae vulgaris Onset Date: Unknown CAD (coronary artery disease) Onset Date: Unknown Chronic GERD Onset Date: Unknown Chronic renal failure, stage 3 (moderate) Onset Date: Unknown Congestive heart failure (CHF) Onset Date: ~06/27/13 Diabetes mellitus Onset Date: ~04/04/17 Heart disease Onset Date: Unknown Hyperlipidemia due to dietary fat intake Onset Date: Unknown Hypertension Onset Date: Unknown Surgical History: Surgical History (Last Reviewed 03/26/20 @ 13:13 by Perfecto Roberts, RN) History of bunionectomy Right History of arthroplasty of right ankle History of esophagogastroduodenoscopy Onset Date: 04/19/13 [place]; clotest negative. Gastritis History of incision and drainage Onset Date: 01/11/19 01/11/19 [place]-left breast abscess Hx of arthroscopy of left knee Onset Date: Unknown x2 Hx of cataract extraction Onset Date: ~2017 bilateral Hx of colonoscopy with polypectomy Onset Date: 09/09/12 - sigmoid diverticulosis, healing anal fissure, normal colonic mucosa. Recheck in 10 years Hx of hernia repair As an ; Right inguinal hernia Family History: Family History (Last Reviewed 03/26/20 @ 13:13 by Perfecto Roberts, RN) Father , age 67-colon cancer ca Diabetes Cancer Colon-dx age 65 and lung cancer Mother , age 73-unsure of cause Diabetes Hypertension Uncle Cancer (Paternal) Colon Cancer Grandmother Cancer (Paternal) Colon cancer Grandfather Cancer (Maternal) Colon Cancer Aunt Cancer (Paternal) Lung Cancer Brother Diabetes Hypertension Brother Alive and well Brother Alive and well Brother Alive and well Social History: (Last Reviewed 03/26/20 @ 13:13 by Perfecto Roberts RN) Social History: Marital status: Single lives independently: Yes household members: none current occupational status: disabled Highest education level completed: 11th grade Service: No Tobacco: Smoking Status: Current every day smoker Smoking cigarettes per day: 1 Alcohol: alcohol intake: never Substance Use: substance use type: does not use Dietary Habits: caffeine: Yes Personal Safety: victim of physical abuse: No victim of emotional abuse: No Review Of Systems (GEN) - Review of Systems Generalized/Overall Review: Present: Weakness, Fatigue. Absent: Fever Respiratory: Present: Shortness of Breath. Absent: Cough Cardiac: Present: Chest Pain, Edema Abdominal: Present: No Symptoms Reported Genitourinary: Present: No Symptoms Reported Musculoskeletal: Present: No Symptoms Reported Neurological: Present: No Symptoms Reported Skin: Present: No Symptoms Reported Immunizations: IMMUNIZATION HX Immunizations Up to Date Yes History of Influenza Vaccine Yes Hx Pneumococcal Vaccination Yes Allergies/Adverse Reactions: Allergies Allergy/AdvReac Type Severity Reaction Status Date / Time ascorbic acid Allergy Intermediate Hives Verified 03/26/20 13:14 [From Tart Talbot] Celery Seed Extract Allergy Intermediate Hives Verified 03/26/20 13:14 [From Tart Talbot] grape seed extract Allergy Intermediate Hives Verified 03/26/20 13:14 [From Tart Talbot] Sour Talbot Extract Allergy Intermediate Hives Verified 03/26/20 13:14 [From Tart Talbot] fenofibrate AdvReac Intermediate muscle Verified 03/26/20 13:14 spasms rosuvastatin [From Crestor] AdvReac Intermediate muscle Verified 03/26/20 13:14 spasms cherries Allergy Severe "big boils" Uncoded 03/26/20 13:14 Home Medications: HOME MEDICATIONS Aspirin 325 mg PO DAILY 06/14/14 [Last Taken 01/10/19] meclizine 25 mg chewable tablet 25 mg PO TID PRN #90 tab 07/14/19 [Last Taken Unknown] insulin glargine 100 unit/mL subcutaneous solution 80 unit SUBCUT QAM #30 ml 08/11/19 [Last Taken Unknown] nitroglycerin 0.4 mg sublingual tablet 0.4 mg SL Q5MIN PRN #25 tab 08/11/19 [Last Taken Unknown] Acetaminophen [Non-Aspirin Extra Strength] 1,000 mg PO Q6H PRN 09/09/19 [Last Taken Unknown] Pravastatin Sodium 10 mg PO DAILY 09/09/19 [Last Taken 11/24/19 21:00] Docusate Sodium [Colace] 100 mg PO DAILY 11/25/19 [Last Taken 11/24/19 09:00] Ferrous Sulfate [Iron] 325 mg PO DAILY 11/25/19 [Last Taken Unknown] Pantoprazole Sodium 40 mg PO DAILY 11/25/19 [Last Taken Unknown] furosemide 40 mg tablet 80 mg PO BID tab 12/03/19 [Last Taken Unknown] multivitamin 1 tab PO DAILY 12/03/19 [Last Taken Unknown] tizanidine 4 mg tablet 4 mg PO Q6H PRN #60 tab 12/21/19 [Last Taken Unknown] mirtazapine 15 mg tablet 15 mg PO HS #30 tab 03/07/20 [Last Taken Unknown] oxybutynin chloride 10 mg tablet,extended release 24 hr 10 mg PO DAILY #30 tab 03/07/20 [Last Taken Unknown] Albuterol Sulfate [Albuterol Sulfate 0.63 MG/3ML] 1 vial INHALATION Q6H 03/26/20 [Last Taken Unknown] Albuterol Sulfate [Ventolin HFA] 2 puff INHALATION Q6H PRN 03/26/20 [Last Taken Unknown] Insul NPH Hu Rec/Ins Rg Hu Rec [Novolin 70/30 100U/ml] 30 units SQ BID 03/26/20 [Last Taken Unknown] Lisinopril [Zestril] 10 mg PO DAILY 03/26/20 [Last Taken Unknown] Metoprolol Succinate [Toprol Xl] 100 mg PO QAM 03/26/20 [Last Taken Unknown] Sertraline HCl [Zoloft] 50 mg PO QAM 03/26/20 [Last Taken Unknown] Umeclidinium Brm/Vilanterol Tr [Anoro Ellipta 62.5-25 Mcg INH] 1 ea INHALATION DAILY 03/26/20 [Last Taken Unknown] Exam - Exam Vital Signs: Vital Signs - Last Taken Temp 36.2 C 03/26/20 13:16 Pulse 89 03/26/20 14:23 Resp 24 H 03/26/20 13:16 BP 139/78 03/26/20 13:16 Pulse Ox 97 03/26/20 13:16 Constitutional: Present: Alert, Oriented x3, Cooperative, No distress, Morbidly obese Respiratory: Present: no respiratory distress, decreased breath sounds, other - on 5 L O2 via NC. Absent: rhonchi Cardiovascular/Chest: Present: regular rate, rhythm Abdomen: Present: obese Extremity: Present: lower extremity edema - 2+ bilaterally Appearance: Present: appropriate insight Eye contact: Present: cooperative, good eye contact Thoughts: Present: normal thought pattern Diagnostic Studies: Abnormal Lab Results 03/26/20 03/26/20 03/26/20 Range/Units 09:16 09:34 09:34 RBC 3.87 L (4.7-6.0) M/mm3 Hgb 9.9 L (13.5-18.0) gm/dL Hct 34.9 L (42.0-52.0) % MCH 25.6 L (27-31) pg MCHC 28.4 L (32-36) g/dl RDW 22.5 H (11.5-14.0) % Immature Gran % (Auto) 0.80 H (0.001-0.429) % Immature Gran # (Auto) 0.07 H (0.000-0.0310) K/mm3 Neutrophils % 82.8 H (42-75.0) % Lymphocytes % 5.7 L (20-51) % Monocytes % 9.5 H (0.0-9) % Neutrophils # 7.6 H (1.3-6.0) K/mm3 Lymphocytes # 0.53 L (1.5-3.5) k/mm3 pCO2 55.5 H (35.0-48.0) mmHg pO2 60.8 L (83.0-108.0) mmHg Total CO2 28.4 H (19.0-24.0) mmol/L ABG pH 7.30 L (7.35-7.45) ABG O2 Sat (Measured) 88.4 L (94.0-98.0) % BUN 56 H (6-23) mg/dL Creatinine 2.35 H (0.4-1.4) mg/dL Est GFR (Non-Af Amer) 30 L (60-130) mL/min BUN/Creatinine Ratio 23.8 H (9.0-21.6) Random Glucose 295 H (70-110) mg/dL Alkaline Phosphatase 288 H (50-170) U/L B-Natriuretic Peptide 8895 H (5-175) pg/mL Albumin 3.0 L (3.4-5.0) gm/dl Urine Protein (NEGATIVE) mg/dL Urine Glucose (UA) (NEGATIVE) mg/dL 03/26/20 Range/Units 10:28 RBC (4.7-6.0) M/mm3 Hgb (13.5-18.0) gm/dL Hct (42.0-52.0) % MCH (27-31) pg MCHC (32-36) g/dl RDW (11.5-14.0) % Immature Gran % (Auto) (0.001-0.429) % Immature Gran # (Auto) (0.000-0.0310) K/mm3 Neutrophils % (42-75.0) % Lymphocytes % (20-51) % Monocytes % (0.0-9) % Neutrophils # (1.3-6.0) K/mm3 Lymphocytes # (1.5-3.5) k/mm3 pCO2 (35.0-48.0) mmHg pO2 (83.0-108.0) mmHg Total CO2 (19.0-24.0) mmol/L ABG pH (7.35-7.45) ABG O2 Sat (Measured) (94.0-98.0) % BUN (6-23) mg/dL Creatinine (0.4-1.4) mg/dL Est GFR (Non-Af Amer) (60-130) mL/min BUN/Creatinine Ratio (9.0-21.6) Random Glucose (70-110) mg/dL Alkaline Phosphatase (50-170) U/L B-Natriuretic Peptide (5-175) pg/mL Albumin (3.4-5.0) gm/dl Urine Protein 15 H (NEGATIVE) mg/dL Urine Glucose (UA) 250 H (NEGATIVE) mg/dL Laboratory Results WBC 9.2 K/mm3 (4.0-10.5) 03/26/20 09:34 RBC 3.87 M/mm3 (4.7-6.0) L 03/26/20 09:34 Hgb 9.9 gm/dL (13.5-18.0) L 03/26/20 09:34 Hct 34.9 % (42.0-52.0) L 03/26/20 09:34 MCV 90.2 fl (78-100) 03/26/20 09:34 MCH 25.6 pg (27-31) L 03/26/20 09:34 MCHC 28.4 g/dl (32-36) L 03/26/20 09:34 RDW 22.5 % (11.5-14.0) H 03/26/20 09:34 Plt Count 324 K/mm3 (150-450) 03/26/20 09:34 MPV 9.2 fl (8-11.3) 03/26/20 09:34 Immature Gran % (Auto) 0.80 % (0.001-0.429) H 03/26/20 09:34 Immature Gran # (Auto) 0.07 K/mm3 (0.000-0.0310) H 03/26/20 09:34 Neutrophils % 82.8 % (42-75.0) H 03/26/20 09:34 Lymphocytes % 5.7 % (20-51) L 03/26/20 09:34 Monocytes % 9.5 % (0.0-9) H 03/26/20 09:34 Eosinophils % 0.9 % (0.0-3.0) 03/26/20 09:34 Basophils % 0.3 % (0.0-1.0) 03/26/20 09:34 Nucleated RBC % 0.0 k/mm3 (0-1) 03/26/20 09:34 Neutrophils # 7.6 K/mm3 (1.3-6.0) H 03/26/20 09:34 Lymphocytes # 0.53 k/mm3 (1.5-3.5) L 03/26/20 09:34 Monocytes # 0.9 k/mm3 (0.0-1.0) 03/26/20 09:34 Eosinophils # 0.1 k/mm3 (0.0-0.7) 03/26/20 09:34 Absolute Basophils 0.0 k/mm3 (0.0-0.1) 03/26/20 09:34 PT 10.7 Seconds (9.1-10.7) 03/26/20 09:34 INR (Anticoag Therapy) 1.08 INR (0.92-1.08) 03/26/20 09:34 PTT ([place]) 27.6 Seconds (24-32) 03/26/20 09:34 pCO2 55.5 mmHg (35.0-48.0) H 03/26/20 09:16 pO2 60.8 mmHg (83.0-108.0) L 03/26/20 09:16 HCO3 26.7 mmol/L (21.0-28.0) 03/26/20 09:16 Total CO2 28.4 mmol/L (19.0-24.0) H 03/26/20 09:16 Base Excess -0.8 mmol/L (-2.0-3.0) 03/26/20 09:16 ABG pH 7.30 (7.35-7.45) L 03/26/20 09:16 ABG O2 Sat (Measured) 88.4 % (94.0-98.0) L 03/26/20 09:16 Sodium 139 mmol/L (132-142) 03/26/20 09:34 Plasma Sodium 142 mmol/L (130-142) 03/26/20 09:34 Potassium 4.5 mmol/L (3.4-4.6) D 03/26/20 09:34 Chloride 104 mmol/L (97-106) 03/26/20 09:34 Carbon Dioxide 30.3 mmol/L (24-32.6) 03/26/20 09:34 Anion Gap 9.2 mmol/L (6.8-13.8) 03/26/20 09:34 BUN 56 mg/dL (6-23) H 03/26/20 09:34 Creatinine 2.35 mg/dL (0.4-1.4) H 03/26/20 09:34 Est GFR (Non-Af Amer) 30 mL/min (60-130) L 03/26/20 09:34 BUN/Creatinine Ratio 23.8 (9.0-21.6) H 03/26/20 09:34 Random Glucose 295 mg/dL (70-110) H 03/26/20 09:34 Lactic Acid, Venous 0.9 mmol/L (0.4-2.0) 03/26/20 09:34 Calcium 8.6 mg/dL (7.9-10.9) 03/26/20 09:34 Calcium Adj for Albumin 9.1 mg/dL (8.4-10.2) 03/26/20 09:34 Total Bilirubin 0.3 mg/dL (0.0-1.1) 03/26/20 09:34 AST 11 U/L (0-48) 03/26/20 09:34 ALT 23 U/L (19-67) 03/26/20 09:34 Alkaline Phosphatase 288 U/L (50-170) H 03/26/20 09:34 Troponin I 0.027 ng/mL (0.00-0.10) 03/26/20 16:15 B-Natriuretic Peptide 8895 pg/mL (5-175) H 03/26/20 09:34 Total Protein 7.8 gm/dL (6.2-8.2) 03/26/20 09:34 Albumin 3.0 gm/dl (3.4-5.0) L 03/26/20 09:34 Urine Color Yellow 03/26/20 10:28 Urine Appearance Clear (CLEAR) 03/26/20 10:28 Urine pH 6.0 pH (5.0-7.0) 03/26/20 10:28 Ur Specific Kramer 1.020 SP.GR. (1.005-1.030) 03/26/20 10:28 Urine Protein 15 mg/dL (NEGATIVE) H 03/26/20 10:28 Urine Glucose (UA) 250 mg/dL (NEGATIVE) H 03/26/20 10:28 Urine Ketones Negative mg/dL (NEGATIVE) 03/26/20 10:28 Urine Blood Negative /ul (NEGATIVE) 03/26/20 10:28 Urine Nitrate Negative (NEGATIVE) 03/26/20 10:28 Urine Bilirubin Negative mg/dl (NEGATIVE) 03/26/20 10:28 Prot Sulfosalicylic Acd 1+ mg/dL (0) 03/26/20 10:28 Urine Urobilinogen Normal EU/dl (NORMAL) 03/26/20 10:28 Ur Leukocyte Esterase Negative /ul (NEGATIVE) 03/26/20 10:28 Urine RBC None seen /hpf (0-5) 03/26/20 10:28 Urine WBC 0-5 /hpf (0-5) 03/26/20 10:28 Ur Epithelial Cells 0-5 /hpf (0-5) 03/26/20 10:28 Urine Bacteria None seen (NONE) 03/26/20 10:28 Urine Culture Comments No culture indicated 03/26/20 10:28 SARS-CoV-2 (PCR) Not detected (ND) 03/26/20 11:31 Assessment/Plan - Assessment/Plan (1) Congestive heart failure with left ventricular dysfunction Assessment: With his edema, increased shortness of breath and oxygen requirement, I believe his shortness of breath is from an acute exacerbation of heart failure. No signs of infection, and COVID test was negative. He reports having an echo done last month during his hospitalization at [facility], but I do not have a copy of that echo. Also following serial troponins, as he has known coronary artery disease with recent OH. He was given 100 mg IV lasix in the ED, and has some improvement in his work of breathing. He has been taking his home 80 mg lasix bid as prescribed. If he is in fluid overload, he would not be absorbing pills well. Will give 80 mg IV lasix in the morning, which is equivalent to 160 mg po lasix. Could potentially resume his home dose in the afternoon. He is currently using 5 L via NC, and oxygenating in the upper 90's. Will attempt to wean to home oxygen, 3 LPM. Problem: Acute (2) Chest pain Assessment: No longer present on my evaluation. Initial troponin was less than 0.017, repeat 0.027. Technically negative, but with his history, will obtain another troponin this evening. He had a recent OH. EKG showed possible sinus tachycardia vs afib/flutter with RVR, but I believe there are p waves. Repeat in am. She reports having a cath done while at [facility], but stent was not able to be placed at that time. His annealing oven operator may be placing a pacemaker, and will be assessing this in the oncoming months. He reports his annealing oven operator will be repeating an echo in June. If we can not wean to 2 L O2, recommend repeating the echo during this admission. He is a full code. Problem: Acute Qualifiers: (3) Malignant neoplasm of upper lobe, right bronchus or lung Assessment: He states his main lung cancer is "," but has an additional mass that is approximately the size of a quarter. His oncologist is following it and will reassess in June. He is not currently undergoing treatment. Problem: Acute (4) Elevated alkaline phosphatase level Assessment: Alk phos level of 288 today. This has not been elevated in the past. GGT pending in the morning, and if it is indicative of a liver source, recommend liver ultrasound. Problem: Acute (5) Chronic kidney disease (CKD), stage IV (severe) Assessment: Current creatinine of 2.35 and GFR og 30 are at their baseline, respectively. He reports following with a airveyor operator. Problem: Chronic (6) Essential hypertension Assessment: He has had a few elevated readings, but for the most part his blood pressures currently controlled. Continue home lisinopril. Problem: Chronic (7) IDDM (insulin dependent diabetes mellitus) Assessment: His glucose has been in upper 200s thus far. His most recent A1c was 10.3 in May 2019. Currently, he gives himself 80 units of Lantus daily and 30 units of 70/30 Novolin twice daily. Repeat A1C pending for the am. May need to increase his insulin. 80 U is the maximum lantus that can be absorbed at once. May increase 70/30 frequency, lantus frequency, or change to U500. Problem: Chronic (8) Nocturnal dyspnea Assessment: He reports doing fine overnight as long as he has his nasal cannula. Problem: Chronic (9) Morbid obesity with BMI of 60.0-69.9, adult Problem: Chronic
[2020-03-26] MEDS: ALBUTEROL SULFATE/IPRATROPIUM 3 ML NEBU IH SCH (18:15)
[2020-03-26] MEDS: FORMOTEROL FUMARATE 20 MCG/2 ML VIAL IH SCH (18:22)
[2020-03-26] MEDS: PANTOPRAZOLE SODIUM 40 MG TABLET.EC PO SCH (20:03)
[2020-03-26] MEDS: MIRTAZAPINE 15 MG TABLET PO SCH (20:04)
[2020-03-26] MEDS: SIMVASTATIN 5 MG TABLET PO SCH (20:33)
[2020-03-26] MEDS: ALBUTEROL SULFATE 2.5 MG/0.5 ML VIAL.NEB IH PRN (22:01)
[2020-03-27] MEDS: ALBUTEROL SULFATE/IPRATROPIUM 3 ML NEBU IH SCH ×4 (00:15→18:10)
[2020-03-27] MEDS: ALBUTEROL SULFATE 2.5 MG/0.5 ML VIAL.NEB IH PRN (00:15)
[2020-03-27] MEDS: ACETAMINOPHEN 500 MG TABLET PO PRN (02:43)
[2020-03-27] MEDS: METOPROLOL SUCCINATE 100 MG TABLET.SA PO SCH (05:34)
[2020-03-27] MEDS ORDERED: FUROSEMIDE 10 MG/ML VIAL IV ONE (06:00)
[2020-03-27 06:49] LABS: Hemoglobin A1C 9.2 % (4.00-6.0)
[2020-03-27] MEDS: FORMOTEROL FUMARATE 20 MCG/2 ML VIAL IH SCH ×2 (07:07→18:11)
[2020-03-27] MEDS: PANTOPRAZOLE SODIUM 40 MG TABLET.EC PO SCH ×2 (07:11→20:11)
[2020-03-27] MEDS: HUM INSULIN NPH/REG INSULIN HM 100 UNIT/ML VIAL SC SCH ×2 (07:12→17:30)
[2020-03-27] MEDS ORDERED: FUROSEMIDE 80 MG TABLET PO SCH (09:00)
[2020-03-27] MEDS ORDERED: LISINOPRIL 10 MG TABLET PO SCH (09:00)
[2020-03-27] MEDS ORDERED: METOPROLOL SUCCINATE 100 MG TABLET.SA PO SCH (09:00)
[2020-03-27] MEDS: ASPIRIN 325 MG TABLET.DR PO SCH (09:28)
[2020-03-27] MEDS: ACETAMINOPHEN 325 MG TABLET PO PRN (09:28)
[2020-03-27] MEDS: DOCUSATE SODIUM 100 MG CAPSULE PO SCH (09:28)
[2020-03-27] MEDS: SERTRALINE HCL 50 MG TABLET PO SCH (09:29)
[2020-03-27] MEDS: FERROUS SULFATE 325 MG TABLET PO SCH (09:29)
[2020-03-27] MEDS: OXYBUTYNIN CHLORIDE 5 MG TABLET PO SCH ×2 (09:29→20:11)
--- NOTE | 2020-03-27 09:43 | PN ---
Subjective - Date and Time Seen Date: 03/27/20 Time: 09:20 Subjective Narrative: He reports having a headache this morning. He is still getting very SOB with any exertion, and still has lower extremity edema. Nursing reports 4 beats of vtach this morning. Nursing reports limited urine output after being given 100 mg IV lasix. Objective - Review of Systems Generalized/Overall Review: Denies: Fever Respiratory: Reports: Shortness of Breath. Denies: Cough Cardiac: Reports: Edema Abdominal: Denies: Vomiting Genitourinary Symptoms: Reports: No Symptoms Reported Musculoskeletal Complaints: Reports: No Symptoms Reported Neurological: Reports: Headache Skin: Reports: No Symptoms Reported - Vitals Vitals: Last Vital Signs Temp 37.2 C 03/27/20 05:42 Pulse 92 03/27/20 07:27 Resp 19 03/27/20 06:39 BP 174/79 H 03/27/20 05:34 Pulse Ox 97 03/27/20 07:20 - Abnormal Lab Findings Abnormal Lab Findings: Abnormal Lab Results 03/26/20 03/26/20 03/26/20 Range/Units 09:16 09:34 09:34 RBC 3.87 L (4.7-6.0) M/mm3 Hgb 9.9 L (13.5-18.0) gm/dL Hct 34.9 L (42.0-52.0) % MCH 25.6 L (27-31) pg MCHC 28.4 L (32-36) g/dl RDW 22.5 H (11.5-14.0) % Immature Gran % (Auto) 0.80 H (0.001-0.429) % Immature Gran # (Auto) 0.07 H (0.000-0.0310) K/mm3 Neutrophils % 82.8 H (42-75.0) % Lymphocytes % 5.7 L (20-51) % Monocytes % 9.5 H (0.0-9) % Neutrophils # 7.6 H (1.3-6.0) K/mm3 Lymphocytes # 0.53 L (1.5-3.5) k/mm3 pCO2 55.5 H (35.0-48.0) mmHg pO2 60.8 L (83.0-108.0) mmHg Total CO2 28.4 H (19.0-24.0) mmol/L ABG pH 7.30 L (7.35-7.45) ABG O2 Sat (Measured) 88.4 L (94.0-98.0) % BUN 56 H (6-23) mg/dL Creatinine 2.35 H (0.4-1.4) mg/dL Est GFR (Non-Af Amer) 30 L (60-130) mL/min BUN/Creatinine Ratio 23.8 H (9.0-21.6) Random Glucose 295 H (70-110) mg/dL Hemoglobin A1c (4.00-6.0) % GGT (4-104) U/L Alkaline Phosphatase 288 H (50-170) U/L B-Natriuretic Peptide 8895 H (5-175) pg/mL Albumin 3.0 L (3.4-5.0) gm/dl Urine Protein (NEGATIVE) mg/dL Urine Glucose (UA) (NEGATIVE) mg/dL 03/26/20 03/27/20 03/27/20 Range/Units 10:28 06:30 06:30 RBC (4.7-6.0) M/mm3 Hgb (13.5-18.0) gm/dL Hct (42.0-52.0) % MCH (27-31) pg MCHC (32-36) g/dl RDW (11.5-14.0) % Immature Gran % (Auto) (0.001-0.429) % Immature Gran # (Auto) (0.000-0.0310) K/mm3 Neutrophils % (42-75.0) % Lymphocytes % (20-51) % Monocytes % (0.0-9) % Neutrophils # (1.3-6.0) K/mm3 Lymphocytes # (1.5-3.5) k/mm3 pCO2 (35.0-48.0) mmHg pO2 (83.0-108.0) mmHg Total CO2 (19.0-24.0) mmol/L ABG pH (7.35-7.45) ABG O2 Sat (Measured) (94.0-98.0) % BUN (6-23) mg/dL Creatinine (0.4-1.4) mg/dL Est GFR (Non-Af Amer) (60-130) mL/min BUN/Creatinine Ratio (9.0-21.6) Random Glucose (70-110) mg/dL Hemoglobin A1c 9.2 H (4.00-6.0) % GGT 268 H (4-104) U/L Alkaline Phosphatase (50-170) U/L B-Natriuretic Peptide (5-175) pg/mL Albumin (3.4-5.0) gm/dl Urine Protein 15 H (NEGATIVE) mg/dL Urine Glucose (UA) 250 H (NEGATIVE) mg/dL - Exam Constitutional: Present: Alert, Mild distress, Morbidly obese Respiratory: Present: no accessory muscle use, wheezing Cardiovascular/Chest: Present: regular rate, rhythm Abdomen: Present: obese Extremity: Present: lower extremity edema - 2+ bilaterally, maybe slight improvement from yesterday Eye contact: Present: avoids eye contact Assessment/Plan - Problems/Diagnosis (1) Congestive heart failure with left ventricular dysfunction Problem: Acute Narrative: Negative COVID test. He has thus far been given 100 mg IV lasix yesterday, and 80 mg IV lasix this morning. He reports slight improvement in his breathing, and is oxygenating on his home 3 L O2. He still has significant SOB with exertion. He just had a STEMI last month, so will repeat echo today to assess his wall motion. Serial troponins done yesterday were very low, with the highest level of 0.035. Repeat EKG this morning showed possible aflutter/afib vs sinus rhythm. He's been in afib/flutter in the past. He looks very uncomfortable on exam today, worse than yesterday. This could be due to his headache, but will keep him hospitalized tonight and potential discharge tomorrow. (2) Chest pain Problem: Resolved Qualifiers: Narrative: Serial troponins done yesterday were very low, with the highest level of 0.035. Repeat EKG this morning showed possible aflutter/afib vs sinus rhythm. He's been in afib/flutter in the past. (3) Malignant neoplasm of upper lobe, right bronchus or lung Problem: Acute Narrative: He states his main lung cancer is "," but has an additional mass that is approximately the size of a quarter. His oncologist is following it and will reassess in June. He is not currently undergoing treatment. His GGT is elevated, so there is concern for hepatobiliary disease or possible mets. (4) Elevated alkaline phosphatase level Problem: Acute Narrative: Elevated alk phos of 288, which is a new finding. GGT also elevated at 268. co ncern for further mets. Liver US pending. (5) Chronic kidney disease (CKD), stage IV (severe) Problem: Chronic Narrative: Renal function does not appear to be elevated from his baseline. He has been getting increased diuretics this admission, so we will recheck in the morning. (6) Essential hypertension Problem: Chronic Narrative: He was prescribed 10 mg of lisinopril. His blood pressures been elevated this morning, but this could be due to his headache. If it remains elevated, may increase lisinopril dose to 20, but would prefer to discuss this with his debug technician given his poor renal function. (7) IDDM (insulin dependent diabetes mellitus) Problem: Chronic Narrative: His A1c is 9.2 this morning. He gives himself 80 units of Lantus and 30 units of 70/30 twice daily. Blood sugars today are better than they were yesterday, in the upper 100s. If he were to be 200 and higher consistently, will increase his insulin regimen. He is currently n.p.o. for his gallbladder ultrasound. With his blood sugar in the 170s this morning, will wait to give him his 80 units of Lantus, and likely give it this evening. (8) Nocturnal dyspnea Problem: Chronic Narrative: He reports doing fine overnight as long as he has his nasal cannula. Sleep apnea could be a source of his headache today. (9) Morbid obesity with BMI of 60.0-69.9, adult Problem: Chronic
[2020-03-27] MEDS: INSULIN GLARGINE,HUM.REC.ANLOG 100 UNITS/ML VIAL SC SCH (13:07)
[2020-03-27] MEDS: FUROSEMIDE 80 MG TABLET PO SCH (13:09)
[2020-03-27] MEDS: MIRTAZAPINE 15 MG TABLET PO SCH (20:11)
[2020-03-27] MEDS: SIMVASTATIN 5 MG TABLET PO SCH (20:11)
[2020-03-28] MEDS: ACETAMINOPHEN 325 MG TABLET PO PRN (00:06)
[2020-03-28] MEDS: ALBUTEROL SULFATE/IPRATROPIUM 3 ML NEBU IH SCH ×2 (00:28→06:01)
[2020-03-28] MEDS: METOPROLOL SUCCINATE 100 MG TABLET.SA PO SCH (05:29)
[2020-03-28] MEDS: FUROSEMIDE 80 MG TABLET PO SCH (05:29)
[2020-03-28] MEDS: FORMOTEROL FUMARATE 20 MCG/2 ML VIAL IH SCH (06:01)
[2020-03-28 06:36] LABS: Albumin * 2.8 gm/dl (3.4-5.0); Anion Gap 10.1 mmol/L (6.8-13.8); BUN/Creatinine Ratio 28.6 (9.0-21.6); Bilirubin, Total 0.3 mg/dL (0.0-1.1); Ca. Corrected For Albumin 9.2 mg/dL (8.4-10.2); Calcium * 8.6 mg/dL (7.9-10.9); Carbon Dioxide 30.1 mmol/L (24-32.6); Potassium 4.2 mmol/L (3.4-4.6)
[2020-03-28] MEDS: PANTOPRAZOLE SODIUM 40 MG TABLET.EC PO SCH (06:50)
[2020-03-28] MEDS: HUM INSULIN NPH/REG INSULIN HM 100 UNIT/ML VIAL SC SCH (06:50)
--- NOTE | 2020-03-28 08:04 | DS ---
(1) Congestive heart failure with left ventricular dysfunction Problem: Chronic (2) Chest pain Problem: Resolved Qualifiers: (3) Malignant neoplasm of upper lobe, right bronchus or lung Problem: Acute (4) Elevated alkaline phosphatase level Problem: Acute (5) Chronic kidney disease (CKD), stage IV (severe) Problem: Chronic (6) Essential hypertension Problem: Chronic (7) IDDM (insulin dependent diabetes mellitus) Problem: Chronic (8) Nocturnal dyspnea Problem: Chronic (9) Morbid obesity with BMI of 60.0-69.9, adult Problem: Chronic Date of Discharge:: 03/28/20 Hospital Course: Patient with past medical history of STEMI last month, metastatic lung cancer, hypertension, heart failure, chronic kidney disease, Type II diabetes, morbid obesity with a BMI of 60 presents with shortness of breath. He uses 3 L O2 via NC at all times. After his STEMI, he was intubated for approximately 6 days, and reports not yet regaining his strength. He had some chest pain the day of admission, which resolved with nitro. Work-up in the ED showed signs of heart failure with fluid overload, with an elevated BNP [place] 8895 and lower extremity edema. He was given IV doses of lasix, with improvement in his symptoms. Initial troponin negative, repeat of 0.027. Troponin was trended, and did not elevated higher than 0.035 over 12 hours of serial troponins. EKG shows possible A. fib/flutter with RVR with a rate of 124 versus sinus tachycardia. At baseline, he uses 3 L oxygen. He used 5 L temporarily, but was able to wean to his baseline 3L. Will add 5 mg metolazone for him to use prn for edema. Echo was repeated, which showed an EF of 40%, global hypokinesia, and LVH. He states his main lung cancer is "," but has an additional mass that is approximately the size of a quarter. His oncologist is following it and will reassess in June. He is not currently undergoing treatment. His alk phos was elevated to 288, so there is concern for hepatobiliary disease or possible mets. GGT was also elevated at 268. Negative liver ultrasound. Alk phos decreased to 226 on the day of DC. He has a history of CKD, but his renal function stayed at his baseline throughout his stay. He has a history of HTN in his chart, and lisinopril was continued. However, the morning of DC, his BP was low at 85/42. He reports the lisinopril was stopped about a month prior, so will stop this on DC. Procedures Performed: none Results and Findings: Pending Mircobiology Results 03/26/20 10:00 Blood Blood Culture - Preliminary NO GROWTH 24 HOURS 03/26/20 09:34 Blood Blood Culture - Preliminary NO GROWTH 24 HOURS Lab Pending Results 03/26/20 09:16: pCO2 55.5 H, pO2 60.8 L, HCO3 26.7, Total CO2 28.4 H, Base Excess -0.8, ABG pH 7.30 L, ABG O2 Sat (Measured) 88.4 L 03/26/20 09:34: WBC 9.2, RBC 3.87 L, Hgb 9.9 L, Hct 34.9 L, MCV 90.2, MCH 25.6 L, MCHC 28.4 L, RDW 22.5 H, Plt Count 324, MPV 9.2, Immature Gran % (Auto) 0.80 H, Immature Gran # (Auto) 0.07 H, Neutrophils % 82.8 H, Lymphocytes % 5.7 L, Monocytes % 9.5 H, Eosinophils % 0.9, Basophils % 0.3, Nucleated RBC % 0.0, Neutrophils # 7.6 H, Lymphocytes # 0.53 L, Monocytes # 0.9, Eosinophils # 0.1, Absolute Basophils 0.0 03/26/20 09:34: Sodium 139, Plasma Sodium 142, Potassium 4.5 D, Chloride 104, Carbon Dioxide 30.3, Anion Gap 9.2, BUN 56 H, Creatinine 2.35 H, Est GFR (Non-Af Amer) 30 L, BUN/Creatinine Ratio 23.8 H, Random Glucose 295 H, Calcium 8.6, Calcium Adj for Albumin 9.1, Total Bilirubin 0.3, AST 11, ALT 23, Alkaline Phosphatase 288 H, Troponin I Less than 0.017, B-Natriuretic Peptide 8895 H, Total Protein 7.8, Albumin 3.0 L 03/26/20 09:34: Lactic Acid, Venous 0.9 03/26/20 09:34: PT 10.7, INR (Anticoag Therapy) 1.08 03/26/20 09:34: PTT (Liza) 27.6 03/26/20 10:28: Urine Color Yellow, Urine Appearance Clear, Urine pH 6.0, Ur Specific [place] 1.020, Urine Protein 15 H, Urine Glucose (UA) 250 H, Urine Ketones Negative, Urine Blood Negative, Urine Nitrate Negative, Urine Bilirubin Negative, Prot Sulfosalicylic Acd 1+, Urine Urobilinogen Normal, Ur Leukocyte Esterase Negative, Urine RBC None seen, Urine WBC 0-5, Ur Epithelial Cells 0-5, Urine Bacteria None seen, Urine Culture Comments No culture indicated 03/26/20 11:31: SARS-CoV-2 (PCR) Not detected 03/26/20 16:15: Troponin I 0.027 03/26/20 21:05: Troponin I 0.035 03/27/20 06:30: Mean Blood Glucose 220, Hemoglobin A1c 9.2 H 03/27/20 06:30: GGT 268 H 03/28/20 06:13: Sodium 138, Plasma Sodium 138, Potassium 4.2, Chloride 102, Carbon Dioxide 30.1, Anion Gap 10.1, BUN 69 H, Creatinine 2.41 H, Est GFR (Non- Af Amer) 29 L, BUN/Creatinine Ratio 28.6 H, Random Glucose 121 H D, Calcium 8.6, Calcium Adj for Albumin 9.2, Total Bilirubin 0.3, AST 13, ALT 18 L, Alkaline Phosphatase 226 H, Total Protein 7.0, Albumin 2.8 L Discharge Location: Home Disposition: Home Health Service Condition: Serious Discharge Activity: Activity as tolerated Discharge Diet: Consistent carbs Referrals: Ryan Isidro DO [Primary Care Provider] - One Week Additional Patient Instructions (free text): [facility] ongoing, please call and fax discharge information to them. Prescriptions (Any new or edited meds): Metolazone [Zaroxolyn] 5 mg PO DAILY@1100 PRN #30 tab PRN Reason: Edema Transmission Status: Pending to [facility] Complete Home Medications List: Complete Home Medication List: Aspirin 325 mg PO DAILY 06/14/14 meclizine 25 mg chewable tablet 25 mg PO TID PRN #90 tab 07/14/19 insulin glargine 100 unit/mL subcutaneous solution 80 unit SUBCUT QAM #30 ml 08/11/19 nitroglycerin 0.4 mg sublingual tablet 0.4 mg SL Q5MIN PRN #25 tab 08/11/19 Acetaminophen [Non-Aspirin Extra Strength] 1,000 mg PO Q6H PRN 09/09/19 Pravastatin Sodium 10 mg PO DAILY 09/09/19 Docusate Sodium [Colace] 100 mg PO DAILY 11/25/19 Ferrous Sulfate [Iron] 325 mg PO DAILY 11/25/19 Pantoprazole Sodium 40 mg PO DAILY 11/25/19 furosemide 40 mg tablet 80 mg PO BID tab 12/03/19 multivitamin 1 tab PO DAILY 12/03/19 tizanidine 4 mg tablet 4 mg PO Q6H PRN #60 tab 12/21/19 mirtazapine 15 mg tablet 15 mg PO HS #30 tab 03/07/20 oxybutynin chloride 10 mg tablet,extended release 24 hr 10 mg PO DAILY #30 tab 03/07/20 Albuterol Sulfate [Albuterol Sulfate 0.63 MG/3ML] 1 vial INHALATION Q6H 03/26/20 Albuterol Sulfate [Ventolin HFA] 2 puff INHALATION Q6H PRN 03/26/20 Insul NPH Hu Rec/Ins Rg Hu Rec [Novolin 70/30 100U/ml] 30 units SQ BID 03/26/20 Lisinopril [Zestril] 10 mg PO DAILY 03/26/20 Metoprolol Succinate [Toprol Xl] 100 mg PO QAM 03/26/20 Sertraline HCl [Zoloft] 50 mg PO QAM 03/26/20 Umeclidinium Brm/Vilanterol Tr [Anoro Ellipta 62.5-25 Mcg INH] 1 ea INHALATION DAILY 03/26/20 Metolazone [Zaroxolyn] 5 mg PO DAILY@1100 PRN #30 tab 03/28/20 Forms: Patient Portal Registration
[2020-03-28] MEDS: FERROUS SULFATE 325 MG TABLET PO SCH (08:55)
[2020-03-28] MEDS: SERTRALINE HCL 50 MG TABLET PO SCH (08:55)
[2020-03-28] MEDS: ASPIRIN 325 MG TABLET.DR PO SCH (08:55)
[2020-03-28] MEDS: INSULIN GLARGINE,HUM.REC.ANLOG 100 UNITS/ML VIAL SC SCH (08:55)
[2020-03-28] MEDS: DOCUSATE SODIUM 100 MG CAPSULE PO SCH (08:55)
[2020-03-28] MEDS: OXYBUTYNIN CHLORIDE 5 MG TABLET PO SCH (09:14)
[2020-03-28 09:38] VITALS: BP 130/62
--- NOTE | 2020-04-05 12:36 | ECHO ---
This report is available in the EMR
== END 2020-03-28 10:08 | disposition home health service (06) | DRG 291 ==
LOC: ER 08:57 → MS 10:59
PROVIDERS: ADMIT Family Medicine; ATTEND Family Medicine
DX: I13.0 Hypertensive heart and chronic kidney disease with heart failure and stage 1 through stage 4 chronic kidney disease, or unspecified chronic kidney disease; Z68.44 Body mass index [BMI] 60.0-69.9, adult; R74.8 Abnormal levels of other serum enzymes; Z79.4 Long term (current) use of insulin; I50.23 Acute on chronic systolic (congestive) heart failure; F32.9 Major depressive disorder, single episode, unspecified; I25.2 Old myocardial infarction; N18.4 Chronic kidney disease, stage 4 (severe); C34.11 Malignant neoplasm of upper lobe, right bronchus or lung; E11.22 Type 2 diabetes mellitus with diabetic chronic kidney disease; E66.01 Morbid (severe) obesity due to excess calories; R06.09 Other forms of dyspnea
CPT/HCPCS: 36415; 36600; 71010; 71045; 76705; 80053; 81001; 82803; 82977; 83036; 83519; 83605; 83880; 84484; 85025; 85610; 85730; 87040; 93005; 93306; 94640; 94760; 96374; 99285

== ENCOUNTER 2020-06-08 05:18 | Observation (INO) ==
[2020-06-08] MEDS ORDERED: NORMAL SALINE 1,000 ML IV ONE (05:39)
[2020-06-08 05:43] LABS: Hematocrit 39.4 % (42.0-52.0); Hemoglobin 11.7 gm/dL (13.5-18.0); Mean Cell Volume 83.3 fl (78-100); Mean Corpuscular Hemoglobin 24.7 pg (27-31); Mean Corpuscular Hgb Conc 29.7 g/dl (32-36); Mean Platelet Volume 8.9 fl (8-11.3); Neutrophil # 8.4 K/mm3 (1.3-6.0); Neutrophil % 80.5 % (42-75.0); Platelet Count 331 K/mm3 (150-450); Red Blood Count 4.73 M/mm3 (4.7-6.0); Red Cell Distribution Width 19.5 % (11.5-14.0); White Blood Count 10.4 K/mm3 (4.0-10.5)
--- NOTE | 2020-06-08 05:50 | ERNOTE ---
<Chris Purvis - Last Filed: 06/08/20 06:46> Chest Pain/Cardiac HPI Chief Complaint: Chest Pain Time Seen by Provider: 06/08/20 05:33 Source: patient Exam Limitations: no limitations Immunizations: IMMUNIZATION HX Immunizations Up to Date Yes History of Influenza Vaccine Yes Hx Pneumococcal Vaccination Yes Allergies/Adverse Reactions: Allergies ascorbic acid [From Tart Talbot] Allergy (Intermediate, Verified 06/08/20 05:28) Hives Great big boils all over his body Celery Seed Extract [From Tart Talbot] Allergy (Intermediate, Verified 06/08/20 05:28) Hives Great big boils all over his body grape seed extract [From Tart Talbot] Allergy (Intermediate, Verified 06/08/20 05:28) Hives Great big boils all over his body Sour Talbot Extract [From Tart Talbot] Allergy (Intermediate, Verified 06/08/20 05:28) Hives Great big boils all over his body fenofibrate Adverse Reaction (Intermediate, Verified 06/08/20 05:28) muscle spasms rosuvastatin [From Crestor] Adverse Reaction (Intermediate, Verified 06/08/20 05:28) muscle spasms cherries Allergy (Severe, Uncoded 06/08/20 05:28) "big boils" Home Medications: HOME MEDICATIONS Aspirin 325 mg PO DAILY 06/14/14 [Last Taken 05/05/20 19:00] meclizine 25 mg chewable tablet 25 mg PO TID PRN #90 tab 07/14/19 [Last Taken Unknown] nitroglycerin 0.4 mg sublingual tablet 0.4 mg SL Q5MIN PRN #25 tab 08/11/19 [Last Taken Unknown] Acetaminophen [Non-Aspirin Extra Strength] 1,000 mg PO Q6H PRN 09/09/19 [Last Taken Unknown] Pravastatin Sodium 10 mg PO DAILY 09/09/19 [Last Taken 11/24/19 21:00] Pantoprazole Sodium 40 mg PO DAILY 11/25/19 [Last Taken Unknown] multivitamin 1 tab PO DAILY 12/03/19 [Last Taken Unknown] oxybutynin chloride 10 mg tablet,extended release 24 hr 10 mg PO DAILY #30 tab 03/07/20 [Last Taken Unknown] Albuterol Sulfate [Albuterol Sulfate 0.63 MG/3ML] 1 vial INHALATION Q6H 03/26/20 [Last Taken Unknown] Albuterol Sulfate [Ventolin HFA] 2 puff INHALATION Q6H PRN 03/26/20 [Last Taken Unknown] Sertraline HCl [Zoloft] 50 mg PO QAM 03/26/20 [Last Taken Unknown] Morphine Sulfate [Ms Contin] 60 mg PO Q12H PRN tablet.sa 03/28/20 [Last Taken Unknown] ferrous sulfate 325 mg (65 mg iron) tablet 325 mg PO DAILY #90 tab 05/04/20 [Last Taken Unknown] metoprolol succinate 100 mg tablet,extended release 24 hr 100 mg PO QAM #90 tab 05/04/20 [Last Taken Unknown] mirtazapine 15 mg tablet 15 mg PO HS #90 tab 05/04/20 [Last Taken Unknown] magnesium oxide 400 mg (241.3 mg magnesium) tablet 400 mg PO DAILY #30 tab 05/09/20 [Last Taken Unknown] Apixaban [Eliquis] 5 mg PO BID #60 tab 05/27/20 [Last Taken Unknown] furosemide 40 mg tablet 80 mg PO BID tab 05/31/20 [Last Taken Unknown] pen needle, diabetic 33 gauge x /16" See Rx Instructions .ROUTE .MEDSUPPLY #200 ea 06/06/20 [Last Taken Unknown] insulin aspart U-100 100 unit/mL (3 mL) subcutaneous pen 24 unit SUBCUT TID #15 ml 06/07/20 [Last Taken Unknown] insulin glargine U-300 conc 300 unit/mL (1.5 mL) subcutaneous pen 40 unit SUBCUT BID #4.5 ml 06/07/20 [Last Taken Unknown] Narrative: Patient states he awoke to have chest pressure little over an hour [employer]. This is resolved but he continues to have shortness of breath. Timing: gone now Severity/Quality: moderate, tightness Location: central Chest Pain Radiation: no radiation Activities at Onset: sleep Prior Chest Pain/Cardiac Workup: Reports: prior chest pain, heart attack Review of Systems - Review of Systems Constitutional: Absent: recent illness, fever, chills EYE: Absent: vision changes ENT: Absent: nose congestion, nasal drainage Respiratory: Present: See HPI, shortness of breath. Absent: cough Cardiology: Absent: chest pain Gastrointestinal/Abdominal: Absent: nausea, vomiting Musculoskeletal: Absent: back pain, muscle pain Neurological: Absent: dizziness/light-headedness Endocrine: Absent: excessive sweating Medical History (Last Reviewed 06/08/20 @ 05:43 by Chris Purvis DO) Dependence on supplemental oxygen (Acute) Symptomatic bradycardia (Acute) Tachycardia-bradycardia syndrome (Acute) Malignant neoplasm of upper lobe, right bronchus or lung (Acute) Major depressive disorder (Acute) Generalized anxiety disorder with panic attacks (Acute) Urinary incontinence (Chronic) History of acute myocardial infarction (Acute) Edema (Resolved) Congestive heart failure with left ventricular dysfunction (Chronic) Steroid-induced hyperglycemia (Acute) Pickwickian syndrome (Chronic) Nocturnal hypoxemia (Acute) Can not tolerate CPAP or Bi-PAP. Sleeps well when in the hospital and on nasal cannula O2. Lower GI bleeding (Chronic) Colonic mass (Chronic) Nocturnal dyspnea (Chronic) Lightheadedness (Acute) Morbid obesity with body mass index (BMI) greater than or equal to 50 (Chronic) Patel is lost about 70 pounds. Lung mass (Chronic) Chronic kidney disease (CKD), stage IV (severe) (Chronic) Wound, open, breast (Acute) Dysuria-frequency syndrome (Acute) Morbid obesity with BMI of 50.0-59.9, adult (Chronic) Vascular insufficiency of limb (Acute) Left lower extremity Ischemic pain of left foot (Acute) Diabetic autonomic neuropathy associated with type 2 diabetes mellitus (Chronic) Feet are now anesthetic. Degenerative arthritis (Chronic) DDD (degenerative disc disease), lumbar (Chronic) Low back pain (Chronic) ESRD (end stage renal disease) (Chronic) Muscle spasm (Resolved) Possibly from the statin. Acute serous otitis media of left ear (Chronic) Has had decreased hearing and intermittent pain in the L ear for the past 1 month Morbid obesity with BMI of 60.0-69.9, adult (Chronic) IDDM (insulin dependent diabetes mellitus) (Chronic) Chronic pain syndrome (Chronic) BMI 60.0-69.9, adult (Chronic) Left breast abscess (Resolved) Original I&D on 06/12/2018 BMI 60.0-69.9, adult (Acute) Severe low back pain (Chronic) Essential hypertension (Chronic) Anemia Onset Date: Unknown Aortic valve sclerosis Onset Date: Unknown Cardiomegaly Onset Date: Unknown Cardiomyopathy Onset Date: Unknown Current tobacco use 1 ppd cigars Macular edema Moderate non-proliferative diabetic retinopathy No history of alcohol use Proteinuria Onset Date: ~03/29/13 Pseudophakia Onset Date: Unknown Sleep apnea Verrucae vulgaris Onset Date: Unknown CAD (coronary artery disease) Onset Date: Unknown Chronic GERD Onset Date: Unknown Chronic renal failure, stage 3 (moderate) Onset Date: Unknown Congestive heart failure (CHF) Onset Date: ~06/27/13 Diabetes mellitus Onset Date: ~04/04/17 Heart disease Onset Date: Unknown Hyperlipidemia due to dietary fat intake Onset Date: Unknown Hypertension Onset Date: Unknown Surgical History: Surgical History (Last Reviewed 06/08/20 @ 05:43 by Chris Purvis DO) History of bunionectomy Right History of arthroplasty of right ankle History of esophagogastroduodenoscopy Onset Date: 04/19/13 Kayden; clotest negative. Gastritis History of incision and drainage Onset Date: 01/11/19 01/11/19 Kayden-left breast abscess Hx of arthroscopy of left knee Onset Date: Unknown x2 Hx of cataract extraction Onset Date: ~2017 bilateral Hx of colonoscopy with polypectomy Onset Date: 09/09/12 - sigmoid diverticulosis, healing anal fissure, normal colonic mucosa. Recheck in 10 years Hx of hernia repair As an ; Right inguinal hernia Family History: Family History (Last Reviewed 06/08/20 @ 05:43 by Chris Purvis DO) Father , age 67-colon cancer ca Diabetes Cancer Colon-dx age 65 and lung cancer Mother , age 73-unsure of cause Diabetes Hypertension Uncle Cancer (Paternal) Colon Cancer Grandmother Cancer (Paternal) Colon cancer Grandfather Cancer (Maternal) Colon Cancer Aunt Cancer (Paternal) Lung Cancer Brother Diabetes Hypertension Brother Alive and well Brother Alive and well Brother Alive and well Social History: (Last Reviewed 06/08/20 @ 05:43 by Chris Purvis DO) Social History: Marital status: Single lives independently: Yes household members: none current occupational status: disabled Highest education level completed: 11th grade Service: No Tobacco: Smoking Status: Current every day smoker Smoking cigarettes per day: 1 Alcohol: alcohol intake: never Substance Use: substance use type: does not use Dietary Habits: caffeine: Yes Personal Safety: victim of physical abuse: No victim of emotional abuse: No Physical Exam - Physical Exam General Appearance: Present: wd/wn, alert, no apparent distress Head Exam: Present: normal inspection, no evidence of injury Eye Exam: Normal inspection: bilateral Respiratory: Present: no respiratory distress, no accessory muscle use Cardiovascular/Chest: Present: no murmur, tachycardia Gastrointestinal/Abdominal: Present: normal bowel sounds, nontender, soft Extremity Exam: Present: non-tender, extremity edema - +2 Neurological Exam: Present: alert, oriented, normal mood/affect Skin Exam: Present: normal color, warm/dry Lymphatic Exam: Present: no adenopathy Progress - Results and Orders Patient's Lab Results:: I have reviewed the patient's lab results. Results and Orders: Laboratory Tests 06/08/20 05:35 Sodium 136 Potassium 4.0 Chloride 98 BUN 36 H Creatinine 1.92 H Est GFR (Non-Af Amer) 38 L Random Glucose 210 H Calcium 9.0 Total Bilirubin 0.4 AST 29 ALT 16 L Troponin I 0.032 B-Natriuretic Peptide 4670 H - Vital Signs Patient's Vital Signs:: I have reviewed the patient's vital signs. Vital Signs: Vital Signs 06/08/20 05:22 Temperature 36.3 C Pulse Rate 127 H Respiratory Rate 28 H Blood Pressure 150/90 H O2 Sat by Pulse Oximetry 98 - EKG EKG #1 EKG: supraventricular tachycardia - sinus, nonspecific ST T wave changes - including evidence of old SD's. EKG read: Interp. by me - Progress/Reassessment Chief Complaint: Chest Pain - Transfer of Care Physician Sign Out: Chris Purvis Receiving Physician: Yan Kurtz Pending Results: Labs Expected Disposition: Discharge Departure Clinical Impression: CHF exacerbation, Chest pain, Tachycardia, Chronic kidney disease (CKD), stage IV (severe) CHF (congestive heart failure) Qualifiers: Heart failure type: systolic Heart failure chronicity: acute on chronic Qualified Code(s): I50.23 - Acute on chronic systolic (congestive) heart failure - Departure Disposition: Still a patient Condition: Fair Referrals: Ryan Isidro DO [Primary Care Provider] - <Yan Kurtz - Last Filed: 06/08/20 09:34> Chest Pain/Cardiac HPI Immunizations: IMMUNIZATION HX Immunizations Up to Date Yes History of Influenza Vaccine Yes Hx Pneumococcal Vaccination Yes Medical History (Last Reviewed 06/08/20 @ 05:43 by Chris Brodale, DO) Dependence on supplemental oxygen (Acute) Symptomatic bradycardia (Acute) Tachycardia-bradycardia syndrome (Acute) Malignant neoplasm of upper lobe, right bronchus or lung (Acute) Major depressive disorder (Acute) Generalized anxiety disorder with panic attacks (Acute) Urinary incontinence (Chronic) History of acute myocardial infarction (Acute) Edema (Resolved) Congestive heart failure with left ventricular dysfunction (Chronic) Steroid-induced hyperglycemia (Acute) Pickwickian syndrome (Chronic) Nocturnal hypoxemia (Acute) Can not tolerate CPAP or Bi-PAP. Sleeps well when in the hospital and on nasal cannula O2. Lower GI bleeding (Chronic) Colonic mass (Chronic) Nocturnal dyspnea (Chronic) Lightheadedness (Acute) Morbid obesity with body mass index (BMI) greater than or equal to 50 (Chronic) Patel is lost about 70 pounds. Lung mass (Chronic) Chronic kidney disease (CKD), stage IV (severe) (Chronic) Wound, open, breast (Acute) Dysuria-frequency syndrome (Acute) Morbid obesity with BMI of 50.0-59.9, adult (Chronic) Vascular insufficiency of limb (Acute) Left lower extremity Ischemic pain of left foot (Acute) Diabetic autonomic neuropathy associated with type 2 diabetes mellitus (Chronic) Feet are now anesthetic. Degenerative arthritis (Chronic) DDD (degenerative disc disease), lumbar (Chronic) Low back pain (Chronic) ESRD (end stage renal disease) (Chronic) Muscle spasm (Resolved) Possibly from the statin. Acute serous otitis media of left ear (Chronic) Has had decreased hearing and intermittent pain in the L ear for the past 1 month Morbid obesity with BMI of 60.0-69.9, adult (Chronic) IDDM (insulin dependent diabetes mellitus) (Chronic) Chronic pain syndrome (Chronic) BMI 60.0-69.9, adult (Chronic) Left breast abscess (Resolved) Original I&D on 06/12/2018 BMI 60.0-69.9, adult (Acute) Severe low back pain (Chronic) Essential hypertension (Chronic) Anemia Onset Date: Unknown Aortic valve sclerosis Onset Date: Unknown Cardiomegaly Onset Date: Unknown Cardiomyopathy Onset Date: Unknown Current tobacco use 1 ppd cigars Macular edema Moderate non-proliferative diabetic retinopathy No history of alcohol use Proteinuria Onset Date: ~03/29/13 Pseudophakia Onset Date: Unknown Sleep apnea Verrucae vulgaris Onset Date: Unknown CAD (coronary artery disease) Onset Date: Unknown Chronic GERD Onset Date: Unknown Chronic renal failure, stage 3 (moderate) Onset Date: Unknown Congestive heart failure (CHF) Onset Date: ~06/27/13 Diabetes mellitus Onset Date: ~04/04/17 Heart disease Onset Date: Unknown Hyperlipidemia due to dietary fat intake Onset Date: Unknown Hypertension Onset Date: Unknown Surgical History: Surgical History (Last Reviewed 06/08/20 @ 05:43 by Chris Purvis DO) History of bunionectomy Right History of arthroplasty of right ankle History of esophagogastroduodenoscopy Onset Date: 04/19/13 [place]den; clotest negative. Gastritis History of incision and drainage Onset Date: 01/11/19 01/11/19 Kayden-left breast abscess Hx of arthroscopy of left knee Onset Date: Unknown x2 Hx of cataract extraction Onset Date: ~2017 bilateral Hx of colonoscopy with polypectomy Onset Date: 09/09/12 - sigmoid diverticulosis, healing anal fissure, normal colonic mucosa. Recheck in 10 years Hx of hernia repair As an ; Right inguinal hernia Family History: Family History (Last Reviewed 06/08/20 @ 05:43 by Chris Purvis DO) Father , age 67-colon cancer ca Diabetes Cancer Colon-dx age 65 and lung cancer Mother , age 73-unsure of cause Diabetes Hypertension Uncle Cancer (Paternal) Colon Cancer Grandmother Cancer (Paternal) Colon cancer Grandfather Cancer (Maternal) Colon Cancer Aunt Cancer (Paternal) Lung Cancer Brother Diabetes Hypertension Brother Alive and well Brother Alive and well Brother Alive and well Social History: (Last Reviewed 06/08/20 @ 05:43 by Chris Purvis DO) Social History: Marital status: Single lives independently: Yes household members: none current occupational status: disabled Highest education level completed: 11th grade Service: No Tobacco: Smoking Status: Current every day smoker Smoking cigarettes per day: 1 Alcohol: alcohol intake: never Substance Use: substance use type: does not use Dietary Habits: caffeine: Yes Personal Safety: victim of physical abuse: No victim of emotional abuse: No Progress - Results and Orders Patient's Lab Results:: I have reviewed the patient's lab results. - Vital Signs Patient's Vital Signs:: I have reviewed the patient's vital signs. Vital Signs: Vital Signs 06/08/20 05:22 06/08/20 05:49 06/08/20 05:55 Temperature 36.3 C Pulse Rate 127 H 106 H 117 H Respiratory Rate 28 H 18 Blood Pressure 150/90 H 132/59 O2 Sat by Pulse Oximetry 98 97 06/08/20 06:22 06/08/20 06:58 06/08/20 07:01 Temperature 36.4 C Pulse Rate 126 H 110 H 107 H Respiratory Rate 16 17 Blood Pressure 156/80 H 146/83 146/83 O2 Sat by Pulse Oximetry 97 99 06/08/20 08:07 06/08/20 08:14 06/08/20 08:58 Temperature Pulse Rate 120 H 120 H 98 Respiratory Rate 13 16 Blood Pressure 148/70 148/70 133/79 O2 Sat by Pulse Oximetry 99 100 - X-Ray X-Ray #1 X-Ray: chest Interpretation: Interp. by me X-ray Comments: I personally reviewed CXR images as well as official radiology report - Progress/Reassessment Progress Note-Subjective: 06/08/20 09:29 Patient checked out to me at am shift change. Has received Lasix and oral Metoprolol. Still tachycardic 120. He had CP and had taken NTG. Given his overall condition I feel he needs full r/o and diuresis given the severity of his multiple medical conditions. I spoke with case management then Dr Isidro then with Dr Chavez. Dr Chavez will admit. He has CHF exacerbation, fluid overload on CXR but is difficult to diurese with his renal insufficiency. Also has know CAD with CP. Needs formal rule out of SD. Tachycardia likely from the CHF exacerbation. Needs cardiac monitoring and observation to ensure he does not deteriorate which can not be done at home. Please see Dr Purvis's note for full H&P. 06/08/20 09:33
[2020-06-08 06:06] LABS: BUN/Creatinine Ratio 18.8 (9.0-21.6); Bilirubin, Total 0.4 mg/dL (0.0-1.1); Ca. Corrected For Albumin 9.5 mg/dL (8.4-10.2); Carbon Dioxide 29.9 mmol/L (24-32.6); Total Protein 7.8 gm/dL (6.2-8.2)
[2020-06-08 06:09] LABS: Troponin I 0.032 ng/mL (0.00-0.10)
[2020-06-08 06:21] LABS: Anion Gap 14.9 mmol/L (6.8-13.8)
[2020-06-08] MEDS ORDERED: FUROSEMIDE 10 MG/ML VIAL IV ONE (06:48)
[2020-06-08] MEDS ORDERED: ACETAMINOPHEN 500 MG TABLET PO ONE (08:10)
[2020-06-08] MEDS ORDERED: METOPROLOL TARTRATE 100 MG TABLET PO ONE (08:11)
[2020-06-08] MEDS ORDERED: ACETAMINOPHEN 500 MG TABLET PO PRN (13:05)
[2020-06-08] MEDS ORDERED: MORPHINE SULFATE 60 MG TABLET.SA PO PRN (13:05)
[2020-06-08] MEDS ORDERED: MECLIZINE HCL 25 MG TABLET PO PRN (13:05)
[2020-06-08] MEDS ORDERED: OXYBUTYNIN CHLORIDE 5 MG TABLET PO SCH (13:15)
[2020-06-08] MEDS ORDERED: INSULIN GLARGINE,HUM.REC.ANLOG 100 UNITS/ML VIAL SC SCH (13:15)
[2020-06-08] MEDS ORDERED: FERROUS SULFATE 325 MG TABLET PO SCH (13:15)
[2020-06-08] MEDS ORDERED: PANTOPRAZOLE SODIUM 40 MG TABLET.EC PO SCH (13:15)
[2020-06-08] MEDS ORDERED: APIXABAN 5 MG TABLET PO SCH (13:15)
[2020-06-08] MEDS ORDERED: MAGNESIUM OXIDE 400 MG TABLET PO SCH (13:15)
[2020-06-08] MEDS ORDERED: CALCIUM CARBONATE 500 MG TAB.CHEW PO PRN (14:28)
[2020-06-08] MEDS ORDERED: METOPROLOL TARTRATE 1 MG/ML AMPUL IV ONE (15:24)
[2020-06-08] MEDS ORDERED: ALBUTEROL SULFATE 2.5 MG/0.5 ML VIAL.NEB IH SCH ×2 (17:00→19:00)
[2020-06-08] MEDS ORDERED: INSULIN LISPRO 100 UNITS/ML VIAL SC SCH (17:00)
--- NOTE | 2020-06-08 18:30 | HPDIS ---
Chief Complaint - Chief Complaint Date of Service: 06/08/20 Time of Service: 12:30 Chief Complaint: Chest pain, shortness of breath History of Present Illness: Patel is a 59 yo male with Coronary Artery Disease, Insulin Dependent diabetes, morbid obesity that developed chest pain and shortness of breath today that caused him to present to the [facility] ER. He was negative for acute WA, but was in sinus tachycardia. He was given his home metoprolol dose in the ER and nitro. He reports pain and shortness of breath improved. His troponin was high normal and ER requested he be admitted to observation to monitor troponin and telemetry. Medical History (Last Reviewed 06/08/20 @ 10:31 by Bri Hamlin RN) Dependence on supplemental oxygen (Acute) Symptomatic bradycardia (Acute) Tachycardia-bradycardia syndrome (Acute) Malignant neoplasm of upper lobe, right bronchus or lung (Acute) Major depressive disorder (Acute) Generalized anxiety disorder with panic attacks (Acute) Urinary incontinence (Chronic) History of acute myocardial infarction (Acute) Edema (Resolved) Congestive heart failure with left ventricular dysfunction (Chronic) Steroid-induced hyperglycemia (Acute) Pickwickian syndrome (Chronic) Nocturnal hypoxemia (Acute) Can not tolerate CPAP or Bi-PAP. Sleeps well when in the hospital and on nasal cannula O2. Lower GI bleeding (Chronic) Colonic mass (Chronic) Nocturnal dyspnea (Chronic) Lightheadedness (Acute) Morbid obesity with body mass index (BMI) greater than or equal to 50 (Chronic) Patel is lost about 70 pounds. Lung mass (Chronic) Chronic kidney disease (CKD), stage IV (severe) (Chronic) Wound, open, breast (Acute) Dysuria-frequency syndrome (Acute) Morbid obesity with BMI of 50.0-59.9, adult (Chronic) Vascular insufficiency of limb (Acute) Left lower extremity Ischemic pain of left foot (Acute) Diabetic autonomic neuropathy associated with type 2 diabetes mellitus (Chronic) Feet are now anesthetic. Degenerative arthritis (Chronic) DDD (degenerative disc disease), lumbar (Chronic) Low back pain (Chronic) ESRD (end stage renal disease) (Chronic) Muscle spasm (Resolved) Possibly from the statin. Acute serous otitis media of left ear (Chronic) Has had decreased hearing and intermittent pain in the L ear for the past 1 month Morbid obesity with BMI of 60.0-69.9, adult (Chronic) IDDM (insulin dependent diabetes mellitus) (Chronic) Chronic pain syndrome (Chronic) BMI 60.0-69.9, adult (Chronic) Left breast abscess (Resolved) Original I&D on 06/12/2018 BMI 60.0-69.9, adult (Acute) Severe low back pain (Chronic) Essential hypertension (Chronic) Anemia Onset Date: Unknown Aortic valve sclerosis Onset Date: Unknown Cardiomegaly Onset Date: Unknown Cardiomyopathy Onset Date: Unknown Current tobacco use 1 ppd cigars Macular edema Moderate non-proliferative diabetic retinopathy No history of alcohol use Proteinuria Onset Date: ~03/29/13 Pseudophakia Onset Date: Unknown Sleep apnea Verrucae vulgaris Onset Date: Unknown CAD (coronary artery disease) Onset Date: Unknown Chronic GERD Onset Date: Unknown Chronic renal failure, stage 3 (moderate) Onset Date: Unknown Congestive heart failure (CHF) Onset Date: ~06/27/13 Diabetes mellitus Onset Date: ~04/04/17 Heart disease Onset Date: Unknown Hyperlipidemia due to dietary fat intake Onset Date: Unknown Hypertension Onset Date: Unknown Surgical History: Surgical History (Last Reviewed 06/08/20 @ 10:32 by Bri Hamlin RN) History of bunionectomy Right History of arthroplasty of right ankle History of esophagogastroduodenoscopy Onset Date: 04/19/13 [place]; clotest negative. Gastritis History of incision and drainage Onset Date: 01/11/19 01/11/19 Kayden-left breast abscess Hx of arthroscopy of left knee Onset Date: Unknown x2 Hx of cataract extraction Onset Date: ~2017 bilateral Hx of colonoscopy with polypectomy Onset Date: 09/09/12 - sigmoid diverticulosis, healing anal fissure, normal colonic mucosa. Recheck in 10 years Hx of hernia repair As an infant; Right inguinal hernia Family History: Family History (Last Reviewed 06/08/20 @ 10:32 by Bri Hamlin RN) Father , age 67-colon cancer ca Diabetes Cancer Colon-dx age 65 and lung cancer Mother , age 73-unsure of cause Diabetes Hypertension Uncle Cancer (Paternal) Colon Cancer Grandmother Cancer (Paternal) Colon cancer Grandfather Cancer (Maternal) Colon Cancer Aunt Cancer (Paternal) Lung Cancer Brother Diabetes Hypertension Brother Alive and well Brother Alive and well Brother Alive and well Social History: (Last Reviewed 06/08/20 @ 10:34 by Bri Hamlin RN) Social History: Marital status: Single lives independently: Yes household members: none current occupational status: disabled Highest education level completed: 11th grade Service: No Tobacco: Smoking Status: Current every day smoker Smoking cigarettes per day: 1 Alcohol: alcohol intake: never Substance Use: substance use type: does not use Dietary Habits: caffeine: Yes Type: coffee Personal Safety: victim of physical abuse: No victim of emotional abuse: No Review Of Systems (GEN) - Review of Systems Generalized/Overall Review: Present: Weakness. Absent: Chills, Fever Respiratory: Present: Shortness of Breath. Absent: Cough Cardiac: Present: Chest Pain, Edema Abdominal: Absent: Nausea, Vomiting Genitourinary: Absent: Burning, Urgency Musculoskeletal: Present: No Symptoms Reported Neurological: Present: No Symptoms Reported Skin: Present: No Symptoms Reported Immunizations: IMMUNIZATION HX Immunizations Up to Date Yes History of Influenza Vaccine Yes Hx Pneumococcal Vaccination Yes Allergies/Adverse Reactions: Allergies Allergy/AdvReac Type Severity Reaction Status Date / Time ascorbic acid Allergy Intermediate Hives Verified 06/08/20 10:34 [From Tart Talbot] Celery Seed Extract Allergy Intermediate Hives Verified 06/08/20 10:34 [From Tart Talbot] grape seed extract Allergy Intermediate Hives Verified 06/08/20 10:34 [From Tart Talbot] Sour Talbot Extract Allergy Intermediate Hives Verified 06/08/20 10:34 [From Tart Talbot] fenofibrate AdvReac Intermediate muscle Verified 06/08/20 10:34 spasms rosuvastatin [From Crestor] AdvReac Intermediate muscle Verified 06/08/20 10:34 spasms cherries Allergy Severe "big boils" Uncoded 06/08/20 10:34 Home Medications: HOME MEDICATIONS Aspirin 325 mg PO DAILY 06/14/14 [Last Taken 05/05/20 19:00] meclizine 25 mg chewable tablet 25 mg PO TID PRN #90 tab 07/14/19 [Last Taken Unknown] nitroglycerin 0.4 mg sublingual tablet 0.4 mg SL Q5MIN PRN #25 tab 08/11/19 [Last Taken Unknown] Acetaminophen [Non-Aspirin Extra Strength] 1,000 mg PO Q6H PRN 09/09/19 [Last Taken Unknown] Pravastatin Sodium 10 mg PO DAILY 09/09/19 [Last Taken 11/24/19 21:00] Pantoprazole Sodium 40 mg PO DAILY 11/25/19 [Last Taken Unknown] multivitamin 1 tab PO DAILY 12/03/19 [Last Taken Unknown] oxybutynin chloride 10 mg tablet,extended release 24 hr 10 mg PO DAILY #30 tab 03/07/20 [Last Taken Unknown] Albuterol Sulfate [Albuterol Sulfate 0.63 MG/3ML] 1 vial INHALATION TID 03/26/20 [Last Taken Unknown] Albuterol Sulfate [Ventolin HFA] 2 puff INHALATION Q6H PRN 03/26/20 [Last Taken Unknown] Sertraline HCl [Zoloft] 50 mg PO QAM 03/26/20 [Last Taken Unknown] Morphine Sulfate [Ms Contin] 60 mg PO Q12H PRN tablet.sa 03/28/20 [Last Taken Unknown] ferrous sulfate 325 mg (65 mg iron) tablet 325 mg PO DAILY #90 tab 05/04/20 [Last Taken Unknown] mirtazapine 15 mg tablet 15 mg PO HS #90 tab 05/04/20 [Last Taken Unknown] magnesium oxide 400 mg (241.3 mg magnesium) tablet 400 mg PO DAILY #30 tab 05/09/20 [Last Taken Unknown] Apixaban [Eliquis] 5 mg PO BID #60 tab 05/27/20 [Last Taken Unknown] furosemide 40 mg tablet 80 mg PO BID tab 05/31/20 [Last Taken Unknown] pen needle, diabetic 33 gauge x 5/16" See Rx Instructions .ROUTE .MEDSUPPLY #200 ea 06/06/20 [Last Taken Unknown] insulin aspart U-100 100 unit/mL (3 mL) subcutaneous pen 24 unit SUBCUT TID #15 ml 06/07/20 [Last Taken Unknown] insulin glargine U-300 conc 300 unit/mL (1.5 mL) subcutaneous pen 40 unit SUBCUT BID #4.5 ml 06/07/20 [Last Taken Unknown] Metoprolol Succinate 150 mg PO QAM #135 tab 06/08/20 [Last Taken Unknown] Exam - Exam Vital Signs: Vital Signs - Last Taken Temp 36.1 C 06/08/20 14:11 Pulse 120 H 06/08/20 15:32 Resp 24 H 06/08/20 14:11 BP 125/81 06/08/20 16:30 Pulse Ox 95 06/08/20 16:00 Constitutional: Present: Alert, Oriented x3, Cooperative ENT Exam: Present: hearing grossly normal Eye Exam: bilateral eye: normal inspection Respiratory: Present: lungs clear, normal breath sounds, no respiratory distress Cardiovascular/Chest: Present: no murmur, tachycardia Peripheral Pulses: radial (R): 2+, radial (L): 2+ Abdomen: Present: Normal bowel sounds, soft, nontender, nondistended Skin Exam: Present: normal color, warm/dry, no cyanosis Appearance: Present: appropriate appearance, appropriate insight Eye contact: Present: cooperative, good eye contact, normal speech Thoughts: Present: normal thought pattern, no apparent hallucination Diagnostic Studies: Abnormal Lab Results 06/08/20 06/08/20 Range/Units 05:35 05:35 Hgb 11.7 L (13.5-18.0) gm/dL Hct 39.4 L (42.0-52.0) % MCH 24.7 L (27-31) pg MCHC 29.7 L (32-36) g/dl RDW 19.5 H (11.5-14.0) % Immature Gran # (Auto) 0.04 H (0.000-0.0310) K/mm3 Neutrophils % 80.5 H (42-75.0) % Lymphocytes % 7.3 L (20-51) % Monocytes % 9.6 H (0.0-9) % Neutrophils # 8.4 H (1.3-6.0) K/mm3 Lymphocytes # 0.76 L (1.5-3.5) k/mm3 Anion Gap 14.9 H (6.8-13.8) mmol/L BUN 36 H (6-23) mg/dL Creatinine 1.92 H (0.4-1.4) mg/dL Est GFR (Non-Af Amer) 38 L (60-130) mL/min Random Glucose 210 H (70-110) mg/dL ALT 16 L (19-67) U/L B-Natriuretic Peptide 4670 H (5-175) pg/mL Albumin 3.0 L (3.4-5.0) gm/dl Laboratory Results WBC 10.4 K/mm3 (4.0-10.5) 06/08/20 05:35 RBC 4.73 M/mm3 (4.7-6.0) 06/08/20 05:35 Hgb 11.7 gm/dL (13.5-18.0) L 06/08/20 05:35 Hct 39.4 % (42.0-52.0) L 06/08/20 05:35 MCV 83.3 fl (78-100) 06/08/20 05:35 MCH 24.7 pg (27-31) L 06/08/20 05:35 MCHC 29.7 g/dl (32-36) L 06/08/20 05:35 RDW 19.5 % (11.5-14.0) H 06/08/20 05:35 Plt Count 331 K/mm3 (150-450) 06/08/20 05:35 MPV 8.9 fl (8-11.3) 06/08/20 05:35 Immature Gran % (Auto) 0.40 % (0.001-0.429) 06/08/20 05:35 Immature Gran # (Auto) 0.04 K/mm3 (0.000-0.0310) H 06/08/20 05:35 Neutrophils % 80.5 % (42-75.0) H 06/08/20 05:35 Lymphocytes % 7.3 % (20-51) L 06/08/20 05:35 Monocytes % 9.6 % (0.0-9) H 06/08/20 05:35 Eosinophils % 1.9 % (0.0-3.0) 06/08/20 05:35 Basophils % 0.3 % (0.0-1.0) 06/08/20 05:35 Nucleated RBC % 0.0 k/mm3 (0-1) 06/08/20 05:35 Neutrophils # 8.4 K/mm3 (1.3-6.0) H 06/08/20 05:35 Lymphocytes # 0.76 k/mm3 (1.5-3.5) L 06/08/20 05:35 Monocytes # 1.0 k/mm3 (0.0-1.0) 06/08/20 05:35 Eosinophils # 0.2 k/mm3 (0.0-0.7) 06/08/20 05:35 Absolute Basophils 0.0 k/mm3 (0.0-0.1) 06/08/20 05:35 Sodium 136 mmol/L (132-142) 06/08/20 05:35 Plasma Sodium 138 mmol/L (130-142) 06/08/20 05:35 Potassium 4.0 mmol/L (3.4-4.6) 06/08/20 05:35 Chloride 98 mmol/L (97-106) 06/08/20 05:35 Carbon Dioxide 29.9 mmol/L (24-32.6) 06/08/20 05:35 Anion Gap 14.9 mmol/L (6.8-13.8) H 06/08/20 05:35 BUN 36 mg/dL (6-23) H 06/08/20 05:35 Creatinine 1.92 mg/dL (0.4-1.4) H 06/08/20 05:35 Est GFR (Non-Af Amer) 38 mL/min (60-130) L 06/08/20 05:35 BUN/Creatinine Ratio 18.8 (9.0-21.6) 06/08/20 05:35 Random Glucose 210 mg/dL (70-110) H 06/08/20 05:35 Calcium 9.0 mg/dL (7.9-10.9) 06/08/20 05:35 Calcium Adj for Albumin 9.5 mg/dL (8.4-10.2) 06/08/20 05:35 Total Bilirubin 0.4 mg/dL (0.0-1.1) 06/08/20 05:35 AST 29 U/L (0-48) 06/08/20 05:35 ALT 16 U/L (19-67) L 06/08/20 05:35 Alkaline Phosphatase 113 U/L (50-170) 06/08/20 05:35 Troponin I 0.028 ng/mL (0.00-0.10) 06/08/20 12:57 B-Natriuretic Peptide 4670 pg/mL (5-175) H 06/08/20 05:35 Total Protein 7.8 gm/dL (6.2-8.2) 06/08/20 05:35 Albumin 3.0 gm/dl (3.4-5.0) L 06/08/20 05:35 SARS-CoV-2 (PCR) Not detected (ND) 06/08/20 08:15 Assessment/Plan - Narrative Narrative: Patel is a 59 yo male with sinus tachycardia and mild acute on chronic diastolic CHF that may be causing his chest pain. There is no evidence of acute WA at this time. Will repeat troponins, ekg, and monitor on telemetry. He was give IV lasix in the ER along with his oral dose of metoprolol. His heart rate is still elevated and he may need an increase in his home metoprolol dose. Will give a dose of IV metoprolol and monitor his response. If troponin remains normal and he is feeling well, he really would like to go home later today. - Assessment/Plan (1) Sinus tachycardia Problem: Acute (2) CHF exacerbation Problem: Acute Qualifiers: Heart failure type: diastolic Qualified Code(s): I50.33 - Acute on chronic diastolic (congestive) heart failure (3) Chest pain Problem: Resolved Qualifiers: (4) IDDM (insulin dependent diabetes mellitus) Problem: Chronic (1) Sinus tachycardia Problem: Acute (2) CHF exacerbation Problem: Acute Qualifiers: Heart failure type: diastolic Qualified Code(s): I50.33 - Acute on chronic diastolic (congestive) heart failure (3) Chest pain Problem: Resolved Qualifiers: (4) IDDM (insulin dependent diabetes mellitus) Problem: Chronic Date of Discharge:: 06/08/20 Hospital Course: Patel is a 59 yo male that was admitted for chest pain. He was negative for acute WA. He had pulmonary congestion indication possible acute on chronic diastolic CHF and sinus tachycardia. This was treated with IV lasix and metoprolol. He feels better and would like to go home. Serial troponins were all normal. Diabetes was treated with his home insulin. I will increase his home metoprolol dose from 100mg daily to 150mg daily. He will follow up with his PCP in 1 week. Procedures Performed: none Results and Findings: Lab Pending Results 06/08/20 05:35: WBC 10.4, RBC 4.73, Hgb 11.7 L, Hct 39.4 L, MCV 83.3, MCH 24.7 L, MCHC 29.7 L, RDW 19.5 H, Plt Count 331, MPV 8.9, Immature Gran % (Auto) 0.40, Immature Gran # (Auto) 0.04 H, Neutrophils % 80.5 H, Lymphocytes % 7.3 L, Monocytes % 9.6 H, Eosinophils % 1.9, Basophils % 0.3, Nucleated RBC % 0.0, Neutrophils # 8.4 H, Lymphocytes # 0.76 L, Monocytes # 1.0, Eosinophils # 0.2, Absolute Basophils 0.0 06/08/20 05:35: Sodium 136, Plasma Sodium 138, Potassium 4.0, Chloride 98, Carbon Dioxide 29.9, Anion Gap 14.9 H, BUN 36 H, Creatinine 1.92 H, Est GFR (Non-Af Amer) 38 L, BUN/Creatinine Ratio 18.8, Random Glucose 210 H, Calcium 9.0, Calcium Adj for Albumin 9.5, Total Bilirubin 0.4, AST 29, ALT 16 L, Alkaline Phosphatase 113, Troponin I 0.032, B-Natriuretic Peptide 4670 H, Total Protein 7.8, Albumin 3.0 L 06/08/20 08:15: SARS-CoV-2 (PCR) Not detected 06/08/20 08:30: Troponin I 0.029 06/08/20 12:57: Troponin I 0.028 Discharge Location: Home Disposition: Home Health Service Condition: Fair Discharge Activity: Activity as tolerated Discharge Diet: Consistent carbs Referrals: Ryan Isidro DO [Primary Care Provider] - One Week Problem Oriented Discharge Instructions to Patient/Family: Nonspecific Chest Pain, Adult, [id number] Additional Patient Instructions (free text): Resume services with [facility] at discharge. Please call report and fax orders upon discharge. Prescriptions (Any new or edited meds): Metoprolol Succinate 150 mg PO QAM #135 tab Transmission Status: Received by [facility] Complete Home Medications List: Complete Home Medication List: Aspirin 325 mg PO DAILY 06/14/14 meclizine 25 mg chewable tablet 25 mg PO TID PRN #90 tab 07/14/19 nitroglycerin 0.4 mg sublingual tablet 0.4 mg SL Q5MIN PRN #25 tab 08/11/19 Acetaminophen [Non-Aspirin Extra Strength] 1,000 mg PO Q6H PRN 09/09/19 Pravastatin Sodium 10 mg PO DAILY 09/09/19 Pantoprazole Sodium 40 mg PO DAILY 11/25/19 multivitamin 1 tab PO DAILY 12/03/19 oxybutynin chloride 10 mg tablet,extended release 24 hr 10 mg PO DAILY #30 tab 03/07/20 Albuterol Sulfate [Albuterol Sulfate 0.63 MG/3ML] 1 vial INHALATION TID 03/26/20 Albuterol Sulfate [Ventolin HFA] 2 puff INHALATION Q6H PRN 03/26/20 Sertraline HCl [Zoloft] 50 mg PO QAM 03/26/20 Morphine Sulfate [Ms Contin] 60 mg PO Q12H PRN tablet.sa 03/28/20 ferrous sulfate 325 mg (65 mg iron) tablet 325 mg PO DAILY #90 tab 05/04/20 mirtazapine 15 mg tablet 15 mg PO HS #90 tab 05/04/20 magnesium oxide 400 mg (241.3 mg magnesium) tablet 400 mg PO DAILY #30 tab 05/09/20 Apixaban [Eliquis] 5 mg PO BID #60 tab 05/27/20 furosemide 40 mg tablet 80 mg PO BID tab 05/31/20 pen needle, diabetic 33 gauge x /16" See Rx Instructions .ROUTE .MEDSUPPLY #200 ea 06/06/20 insulin aspart U-100 100 unit/mL (3 mL) subcutaneous pen 24 unit SUBCUT TID #15 ml 06/07/20 insulin glargine U-300 conc 300 unit/mL (1.5 mL) subcutaneous pen 40 unit SUBCUT BID #4.5 ml 06/07/20 Metoprolol Succinate 150 mg PO QAM #135 tab 06/08/20
[2020-06-08 19:13] VITALS: BP 125/80
[2020-06-08] MEDS ORDERED: SIMVASTATIN 5 MG TABLET PO SCH (21:00)
[2020-06-08] MEDS ORDERED: MIRTAZAPINE 15 MG TABLET PO SCH (21:00)
[2020-06-09] MEDS ORDERED: SERTRALINE HCL 50 MG TABLET PO SCH (09:00)
== END 2020-06-08 19:35 | disposition home health service (06) ==
LOC: ER 05:18 → MS 05:18
PROVIDERS: ADMIT Family Medicine; ATTEND Family Medicine
DX: R00.0 Tachycardia, unspecified; E66.01 Morbid (severe) obesity due to excess calories; N18.6 End stage renal disease; F17.290 Nicotine dependence, other tobacco product, uncomplicated; I25.2 Old myocardial infarction; I50.33 Acute on chronic diastolic (congestive) heart failure; Z79.4 Long term (current) use of insulin; E11.22 Type 2 diabetes mellitus with diabetic chronic kidney disease; I13.2 Hypertensive heart and chronic kidney disease with heart failure and with stage 5 chronic kidney disease, or end stage renal disease; Z68.43 Body mass index [BMI] 50.0-59.9, adult
CPT/HCPCS: 36415; 71010; 71045; 80053; 83519; 83880; 84484; 85025; 93005; 96372; 96374; 96375; 99285; C9803; G0378

== ENCOUNTER 2020-08-03 17:22 | Inpatient (IN) ==
[2020-08-03] MEDS ORDERED: METHYLPREDNISOLONE SOD SUCC/PF 40 MG/ML VIAL IV ONE (18:02)
[2020-08-03] MEDS ORDERED: ALBUTEROL SULFATE/IPRATROPIUM 3 ML NEBU IH ONE (18:02)
[2020-08-03 18:26] LABS: Hematocrit 28.9 % (42.0-52.0); Hemoglobin 8.1 gm/dL (13.5-18.0); Mean Cell Volume 91.2 fl (78-100); Mean Corpuscular Hemoglobin 25.6 pg (27-31); Mean Platelet Volume 8.6 fl (8-11.3); Neutrophil # 9.7 K/mm3 (1.3-6.0); Neutrophil % 83.2 % (42-75.0); Platelet Count 269 K/mm3 (150-450); Red Blood Count 3.17 M/mm3 (4.7-6.0); Red Cell Distribution Width 21.2 % (11.5-14.0); White Blood Count 11.6 K/mm3 (4.0-10.5)
[2020-08-03 18:45] LABS: Albumin * 3.1 gm/dl (3.4-5.0); Anion Gap 4.2 mmol/L (6.8-13.8); BUN/Creatinine Ratio 39.8 (9.0-21.6); Bilirubin, Total 0.4 mg/dL (0.0-1.1); Ca. Corrected For Albumin 9.9 mg/dL (8.4-10.2); Calcium * 9.5 mg/dL (7.9-10.9); Potassium 3.2 mmol/L (3.4-4.6); Total Protein 7.6 gm/dL (6.2-8.2); Troponin I 0.059 ng/mL (0.00-0.10)
[2020-08-03] MEDS ORDERED: FUROSEMIDE 10 MG/ML VIAL IV ONE (19:07)
--- NOTE | 2020-08-03 19:42 | HP ---
Chief Complaint - Chief Complaint Date of Service: 08/03/20 Time of Service: 19:15 Chief Complaint: Shortness of breath x1 day History of Present Illness: 59-year-old male with a past medical history of CAD, CHF, tobacco use, CKD stage IV, degenerative disc disease, diabetes mellitus type 2, hypertension, anxiety, lung mass, oxygen dependency on 4.5-5 L of oxygen, morbid obesity presents from home with complaints of worsening shortness of breath. In the emergency department he is found to have mild leukocytosis at 11.6, hemoglobin of 8.1, chest x-ray with vascular congestion. He was given 1 dose of Lasix 40 mg in the ER. He is being admitted for CHF exacerbation and symptomatic anemia. Guaiac stools pending. Medical History (Last Reviewed 08/03/20 @ 17:25 by Miranda Landa RN) Blurred vision, right eye (Acute) Right facial numbness (Acute) Worsening headaches (Acute) Memory impairment (Acute) Dependence on supplemental oxygen (Acute) Symptomatic bradycardia (Acute) Tachycardia-bradycardia syndrome (Acute) Malignant neoplasm of upper lobe, right bronchus or lung (Acute) Major depressive disorder (Acute) Generalized anxiety disorder with panic attacks (Acute) Urinary incontinence (Chronic) History of acute myocardial infarction (Acute) Edema (Resolved) Congestive heart failure with left ventricular dysfunction (Chronic) Steroid-induced hyperglycemia (Acute) Pickwickian syndrome (Chronic) Nocturnal hypoxemia (Acute) Can not tolerate CPAP or Bi-PAP. Sleeps well when in the hospital and on nasal cannula O2. Lower GI bleeding (Chronic) Colonic mass (Chronic) Nocturnal dyspnea (Chronic) Lightheadedness (Acute) Morbid obesity with body mass index (BMI) greater than or equal to 50 (Chronic) Patel is lost about 70 pounds. Lung mass (Chronic) Chronic kidney disease (CKD), stage IV (severe) (Chronic) Wound, open, breast (Acute) Dysuria-frequency syndrome (Acute) Morbid obesity with BMI of 50.0-59.9, adult (Chronic) Vascular insufficiency of limb (Acute) Left lower extremity Ischemic pain of left foot (Acute) Diabetic autonomic neuropathy associated with type 2 diabetes mellitus (Chronic) Feet are now anesthetic. Degenerative arthritis (Chronic) DDD (degenerative disc disease), lumbar (Chronic) Low back pain (Chronic) ESRD (end stage renal disease) (Chronic) Muscle spasm (Resolved) Possibly from the statin. Acute serous otitis media of left ear (Chronic) Has had decreased hearing and intermittent pain in the L ear for the past 1 month Morbid obesity with BMI of 60.0-69.9, adult (Chronic) IDDM (insulin dependent diabetes mellitus) (Chronic) Chronic pain syndrome (Chronic) BMI 60.0-69.9, adult (Chronic) Left breast abscess (Resolved) Original I&D on 06/12/2018 BMI 60.0-69.9, adult (Acute) Severe low back pain (Chronic) Essential hypertension (Chronic) Anemia Onset Date: Unknown Aortic valve sclerosis Onset Date: Unknown Cardiomegaly Onset Date: Unknown Cardiomyopathy Onset Date: Unknown Current tobacco use 1 ppd cigars Macular edema Moderate non-proliferative diabetic retinopathy No history of alcohol use Proteinuria Onset Date: ~03/29/13 Pseudophakia Onset Date: Unknown Sleep apnea Verrucae vulgaris Onset Date: Unknown CAD (coronary artery disease) Onset Date: Unknown Chronic GERD Onset Date: Unknown Chronic renal failure, stage 3 (moderate) Onset Date: Unknown Congestive heart failure (CHF) Onset Date: ~06/27/13 Diabetes mellitus Onset Date: ~04/04/17 Heart disease Onset Date: Unknown Hyperlipidemia due to dietary fat intake Onset Date: Unknown Hypertension Onset Date: Unknown Surgical History: Surgical History (Last Reviewed 08/03/20 @ 17:25 by Miranda Landa RN) History of bunionectomy Right Hx of cardiac cath History of arthroplasty of right ankle History of esophagogastroduodenoscopy Onset Date: 04/19/13 [place]; clotest negative. Gastritis History of incision and drainage Onset Date: 01/11/19 01/11/19 Kayden-left breast abscess Hx of arthroscopy of left knee Onset Date: Unknown x2 Hx of cataract extraction Onset Date: ~2017 bilateral Hx of colonoscopy with polypectomy Onset Date: 09/09/12 - sigmoid diverticulosis, healing anal fissure, normal colonic mucosa. Recheck in 10 years Hx of hernia repair As an infant; Right inguinal hernia Family History: Family History (Last Reviewed 08/03/20 @ 17:25 by Miranda Landa RN) Father , age 67-colon cancer ca Diabetes Cancer Colon-dx age 65 and lung cancer Mother , age 73-unsure of cause Diabetes Hypertension Uncle Cancer (Paternal) Colon Cancer Grandmother Cancer (Paternal) Colon cancer Grandfather Cancer (Maternal) Colon Cancer Aunt Cancer (Paternal) Lung Cancer Brother Diabetes Hypertension Brother Alive and well Brother Alive and well Brother Alive and well Social History: (Last Reviewed 08/03/20 @ 17:25 by Miranda Landa RN) Social History: Marital status: Single lives independently: Yes household members: none current occupational status: disabled Highest education level completed: 11th grade Service: No Tobacco: Smoking Status: Former smoker Smoking cigarettes per day: 1 how long ago did patient quit smokin months Alcohol: alcohol intake: never Substance Use: substance use type: does not use Dietary Habits: caffeine: Yes Type: coffee Personal Safety: victim of physical abuse: No victim of emotional abuse: No Review Of Systems (GEN) - Review of Systems Generalized/Overall Review: Present: Chills. Absent: Fever Respiratory: Present: Shortness of Breath Cardiac: Absent: Chest Pain Abdominal: Absent: Abdominal Pain Misc: All systems neg except as marked Immunizations: IMMUNIZATION HX Immunizations Up to Date Yes History of Influenza Vaccine Yes Hx Pneumococcal Vaccination Yes Allergies/Adverse Reactions: Allergies Allergy/AdvReac Type Severity Reaction Status Date / Time ascorbic acid Allergy Intermediate Hives Verified 08/03/20 17:25 [From Tart Talbot] Celery Seed Extract Allergy Intermediate Hives Verified 08/03/20 17:25 [From Tart Talbot] grape seed extract Allergy Intermediate Hives Verified 08/03/20 17:25 [From Tart Talbot] Sour Talbot Extract Allergy Intermediate Hives Verified 08/03/20 17:25 [From Tart Talbot] fenofibrate AdvReac Intermediate muscle Verified 08/03/20 17:25 spasms rosuvastatin [From Crestor] AdvReac Intermediate muscle Verified 08/03/20 17:25 spasms cherries Allergy Severe "big boils" Uncoded 08/03/20 17:25 Home Medications: HOME MEDICATIONS Aspirin 325 mg PO DAILY 06/14/14 [Last Taken 05/05/20 19:00] meclizine 25 mg chewable tablet 25 mg PO TID PRN #90 tab 07/14/19 [Last Taken Unknown] nitroglycerin 0.4 mg sublingual tablet 0.4 mg SL Q5MIN PRN #25 tab 08/11/19 [Last Taken Unknown] Acetaminophen [Non-Aspirin Extra Strength] 1,000 mg PO Q6H PRN 09/09/19 [Last Taken Unknown] multivitamin 1 tab PO DAILY 12/03/19 [Last Taken Unknown] Albuterol Sulfate [Albuterol Sulfate 0.63 MG/3ML] 1 vial INHALATION TID 03/26/20 [Last Taken Unknown] Albuterol Sulfate [Ventolin HFA] 2 puff INHALATION Q6H PRN 03/26/20 [Last Taken Unknown] Morphine Sulfate [Ms Contin] 60 mg PO Q12H PRN tablet.sa 03/28/20 [Last Taken Unknown] magnesium oxide 400 mg (241.3 mg magnesium) tablet 400 mg PO DAILY #30 tab 05/09/20 [Last Taken Unknown] apixaban 5 mg tablet 5 mg PO BID #60 tab 06/28/20 [Last Taken Unknown] rivastigmine 4.6 mg TRANSDERMAL DAILY #14 ea 06/29/20 [Last Taken Unknown] rivastigmine 9.5 mg TRANSDERMAL DAILY #30 ea 06/29/20 [Last Taken Unknown] rivastigmine 13.3 mg/24 hour transdermal patch 13.3 mg TRANSDERMAL DAILY #30 ea 06/29/20 [Last Taken Unknown] Insulin Aspart [Insulin Aspart Flexpen] 30 unit SUBCUT TID 07/04/20 [Last Taken Unknown] furosemide 40 mg tablet 80 mg PO DAILY #30 tab 07/19/20 [Last Taken Unknown] insulin glargine U-300 conc 300 unit/mL (1.5 mL) subcutaneous pen 100 unit SUBCUT BID #4.5 ml 08/02/20 [Last Taken Unknown] metolazone 5 mg tablet 5 mg PO DAILY #30 tab 08/02/20 [Last Taken Unknown] mirtazapine 15 mg tablet 15 mg PO DAILY #90 tab 08/02/20 [Last Taken Unknown] oxybutynin chloride 10 mg tablet,extended release 24 hr See Rx Instructions .ROUTE .COMPLEX #30 unknown measurement unit code: tablet 08/02/20 [Last Taken Unknown] pantoprazole 40 mg tablet,delayed release 40 mg PO DAILY #30 tab 08/02/20 [Last Taken Unknown] pravastatin 10 mg tablet 10 mg PO DAILY #30 tab 08/02/20 [Last Taken Unknown] sertraline 50 mg tablet 50 mg PO QAM #30 tab 08/02/20 [Last Taken Unknown] ferrous sulfate 325 mg (65 mg iron) tablet See Rx Instructions .ROUTE .COMPLEX #90 unknown measurement unit code: tablet 08/03/20 [Last Taken Unknown] metoprolol succinate 100 mg tablet,extended release 24 hr 150 mg PO QAM #135 tab 08/03/20 [Last Taken Unknown] Exam - Exam Vital Signs: Vital Signs - Last Taken Temp 36.1 C 08/03/20 17:22 Pulse 109 H 08/03/20 19:30 Resp 16 08/03/20 17:22 BP 140/88 08/03/20 17:22 Pulse Ox 97 08/03/20 19:30 Constitutional: Present: Alert, Cooperative, Well developed, Well nourished, No distress, Morbidly obese ENT Exam: Present: hearing grossly normal, moist mucous membranes Eye Exam: bilateral eye: normal inspection, PERRL, EOMI Neck: Present: non-tender, supple. Absent: lymphadenopathy (R), lymphadenopathy (L) Back Exam: Present: no CVA tenderness, no vertebral tenderness Respiratory: Present: no respiratory distress, no accessory muscle use, decreased breath sounds - Bilaterally throughout, No wheezing. Absent: crackles, rhonchi Cardiovascular/Chest: Present: normal peripheral pulses, no murmur, irregularly irregular Peripheral Pulses: dorsalis-pedis (R): 1+, dorsalis-pedis (L): 1+ Abdomen: Present: Normal bowel sounds, soft, nontender, obese Extremity: Present: lower extremity edema - 2+ pitting bilateral lower extremity Skin Exam: Present: normal color, warm/dry Neurologic: Present: alert, normal mood/affect Appearance: Present: appropriate appearance, impaired insight Eye contact: Present: cooperative Thoughts: Present: normal thought pattern, normal mood /affect Diagnostic Studies: Abnormal Lab Results 08/03/20 08/03/20 Range/Units 18:20 18:20 WBC 11.6 H (4.0-10.5) K/mm3 RBC 3.17 L (4.7-6.0) M/mm3 Hgb 8.1 L (13.5-18.0) gm/dL Hct 28.9 L (42.0-52.0) % MCH 25.6 L (27-31) pg MCHC 28.0 L (32-36) g/dl RDW 21.2 H (11.5-14.0) % Immature Gran % (Auto) 0.50 H (0.001-0.429) % Immature Gran # (Auto) 0.06 H (0.000-0.0310) K/mm3 Neutrophils % 83.2 H (42-75.0) % Lymphocytes % 5.3 L (20-51) % Monocytes % 10.1 H (0.0-9) % Neutrophils # 9.7 H (1.3-6.0) K/mm3 Lymphocytes # 0.62 L (1.5-3.5) k/mm3 Monocytes # 1.2 H (0.0-1.0) k/mm3 Potassium 3.2 L (3.4-4.6) mmol/L Chloride 90 L (97-106) mmol/L Carbon Dioxide 45.0 H (24-32.6) mmol/L Anion Gap 4.2 L (6.8-13.8) mmol/L BUN 99 H (6-23) mg/dL Creatinine 2.49 H (0.4-1.4) mg/dL Est GFR (Non-Af Amer) 28 L (60-130) mL/min BUN/Creatinine Ratio 39.8 H (9.0-21.6) Random Glucose 165 H (70-110) mg/dL ALT 12 L (19-67) U/L B-Natriuretic Peptide 8016 H (5-175) pg/mL Albumin 3.1 L (3.4-5.0) gm/dl Laboratory Results WBC 11.6 K/mm3 (4.0-10.5) H 08/03/20 18:20 RBC 3.17 M/mm3 (4.7-6.0) L 08/03/20 18:20 Hgb 8.1 gm/dL (13.5-18.0) L 08/03/20 18:20 Hct 28.9 % (42.0-52.0) L 08/03/20 18:20 MCV 91.2 fl (78-100) 08/03/20 18:20 MCH 25.6 pg (27-31) L 08/03/20 18:20 MCHC 28.0 g/dl (32-36) L 08/03/20 18:20 RDW 21.2 % (11.5-14.0) H 08/03/20 18:20 Plt Count 269 K/mm3 (150-450) 08/03/20 18:20 MPV 8.6 fl (8-11.3) 08/03/20 18:20 Immature Gran % (Auto) 0.50 % (0.001-0.429) H 08/03/20 18:20 Immature Gran # (Auto) 0.06 K/mm3 (0.000-0.0310) H 08/03/20 18:20 Neutrophils % 83.2 % (42-75.0) H 08/03/20 18:20 Lymphocytes % 5.3 % (20-51) L 08/03/20 18:20 Monocytes % 10.1 % (0.0-9) H 08/03/20 18:20 Eosinophils % 0.7 % (0.0-3.0) 08/03/20 18:20 Basophils % 0.2 % (0.0-1.0) 08/03/20 18:20 Nucleated RBC % 0.0 k/mm3 (0-1) 08/03/20 18:20 Neutrophils # 9.7 K/mm3 (1.3-6.0) H 08/03/20 18:20 Lymphocytes # 0.62 k/mm3 (1.5-3.5) L 08/03/20 18:20 Monocytes # 1.2 k/mm3 (0.0-1.0) H 08/03/20 18:20 Eosinophils # 0.1 k/mm3 (0.0-0.7) 08/03/20 18:20 Absolute Basophils 0.0 k/mm3 (0.0-0.1) 08/03/20 18:20 Sodium 136 mmol/L (132-142) 08/03/20 18:20 Plasma Sodium 137 mmol/L (130-142) 08/03/20 18:20 Potassium 3.2 mmol/L (3.4-4.6) L 08/03/20 18:20 Chloride 90 mmol/L (97-106) L 08/03/20 18:20 Carbon Dioxide 45.0 mmol/L (24-32.6) H 08/03/20 18:20 Anion Gap 4.2 mmol/L (6.8-13.8) L 08/03/20 18:20 BUN 99 mg/dL (6-23) H 08/03/20 18:20 Creatinine 2.49 mg/dL (0.4-1.4) H 08/03/20 18:20 Est GFR (Non-Af Amer) 28 mL/min (60-130) L 08/03/20 18:20 BUN/Creatinine Ratio 39.8 (9.0-21.6) H 08/03/20 18:20 Random Glucose 165 mg/dL (70-110) H 08/03/20 18:20 Calcium 9.5 mg/dL (7.9-10.9) 08/03/20 18:20 Calcium Adj for Albumin 9.9 mg/dL (8.4-10.2) 08/03/20: Total Bilirubin 0.4 mg/dL (0.0-1.1) 08/03/20 18:20 AST 13 U/L (0-48) 08/03/20 18:20 ALT 12 U/L (19-67) L 08/03/20 18:20 Alkaline Phosphatase 108 U/L (50-170) 08/03/20 18:20 Troponin I 0.059 ng/mL (0.00-0.10) 08/03/20 18:20 B-Natriuretic Peptide 8016 pg/mL (5-175) H 08/03/20 18:20 Total Protein 7.6 gm/dL (6.2-8.2) 08/03/20 18:20 Albumin 3.1 gm/dl (3.4-5.0) L 08/03/20 18:20 Assessment/Plan - Narrative Narrative: 59-year-old male with a past medical history of CAD, CHF, tobacco use, CKD stage IV, degenerative disc disease, diabetes mellitus type 2, hypertension, anxiety, lung mass, oxygen dependency on 4.5-5 L of oxygen, morbid obesity presents from home with complaints of worsening shortness of breath. In the emergency department he is found to have mild leukocytosis at 11.6, hemoglobin of 8.1, chest x-ray with vascular congestion. He was given 1 dose of Lasix 40 mg in the ER. He is being admitted for CHF exacerbation and symptomatic anemia. Guaiac stools pending. Plan #1 repeat CBC and CMP in the morning #2 continue with Lasix 40 mg IV daily #3 strict I's and O's #4 resume home medications - Assessment/Plan (1) CHF exacerbation Problem: Acute Qualifiers: (2) Symptomatic anemia Problem: Acute (3) Insulin dependent diabetes mellitus Problem: Chronic (4) History of lung cancer Problem: Inactive (5) Atrial fibrillation with normal ventricular rate Problem: Acute (6) Chronic kidney disease (CKD), stage IV (severe) Problem: Chronic (7) Morbid obesity with BMI of 50.0-59.9, adult Problem: Chronic (8) DDD (degenerative disc disease), lumbar Problem: Chronic (9) Essential hypertension Problem: Chronic
--- NOTE | 2020-08-03 19:49 | ERNOTE ---
Dyspnea - Date Date of Service: 08/03/20 - General Presenting Symptoms: shortness of breath Time Seen by Provider: 08/03/20 17:51 Source: patient, family Exam Limitations: no limitations - Immun/Allergies/Home Medications Immunizations: IMMUNIZATION HX Immunizations Up to Date Yes History of Influenza Vaccine Yes Hx Pneumococcal Vaccination Yes Allergies/Adverse Reactions: Allergies ascorbic acid [From Tart Talbot] Allergy (Intermediate, Verified 08/03/20 17:25) Hives Great big boils all over his body Celery Seed Extract [From Tart Talbot] Allergy (Intermediate, Verified 08/03/20 17:25) Hives Great big boils all over his body grape seed extract [From Tart Talbot] Allergy (Intermediate, Verified 08/03/20 17:25) Hives Great big boils all over his body Sour Talbot Extract [From Tart Talbot] Allergy (Intermediate, Verified 08/03/20 17:25) Hives Great big boils all over his body fenofibrate Adverse Reaction (Intermediate, Verified 08/03/20 17:25) muscle spasms rosuvastatin [From Crestor] Adverse Reaction (Intermediate, Verified 08/03/20 17:25) muscle spasms cherries Allergy (Severe, Uncoded 08/03/20 17:25) "big boils" Home Medications: HOME MEDICATIONS Aspirin 325 mg PO DAILY 06/14/14 [Last Taken 05/05/20 19:00] meclizine 25 mg chewable tablet 25 mg PO TID PRN #90 tab 07/14/19 [Last Taken Unknown] nitroglycerin 0.4 mg sublingual tablet 0.4 mg SL Q5MIN PRN #25 tab 08/11/19 [Last Taken Unknown] Acetaminophen [Non-Aspirin Extra Strength] 1,000 mg PO Q6H PRN 09/09/19 [Last Taken Unknown] multivitamin 1 tab PO DAILY 12/03/19 [Last Taken Unknown] Albuterol Sulfate [Albuterol Sulfate 0.63 MG/3ML] 1 vial INHALATION TID 03/26/20 [Last Taken Unknown] Albuterol Sulfate [Ventolin HFA] 2 puff INHALATION Q6H PRN 03/26/20 [Last Taken Unknown] Morphine Sulfate [Ms Contin] 60 mg PO Q12H PRN tablet.sa 03/28/20 [Last Taken Unknown] magnesium oxide 400 mg (241.3 mg magnesium) tablet 400 mg PO DAILY #30 tab 05/09/20 [Last Taken Unknown] apixaban 5 mg tablet 5 mg PO BID #60 tab 06/28/20 [Last Taken Unknown] rivastigmine 4.6 mg TRANSDERMAL DAILY #14 ea 06/29/20 [Last Taken Unknown] rivastigmine 9.5 mg TRANSDERMAL DAILY #30 ea 06/29/20 [Last Taken Unknown] rivastigmine 13.3 mg/24 hour transdermal patch 13.3 mg TRANSDERMAL DAILY #30 ea 06/29/20 [Last Taken Unknown] Insulin Aspart [Insulin Aspart Flexpen] 30 unit SUBCUT TID 07/04/20 [Last Taken Unknown] furosemide 40 mg tablet 80 mg PO DAILY #30 tab 07/19/20 [Last Taken Unknown] insulin glargine U-300 conc 300 unit/mL (1.5 mL) subcutaneous pen 100 unit SUBCUT BID #4.5 ml 08/02/20 [Last Taken Unknown] metolazone 5 mg tablet 5 mg PO DAILY #30 tab 08/02/20 [Last Taken Unknown] mirtazapine 15 mg tablet 15 mg PO DAILY #90 tab 08/02/20 [Last Taken Unknown] oxybutynin chloride 10 mg tablet,extended release 24 hr See Rx Instructions .ROUTE .COMPLEX #30 unknown measurement unit code: tablet 08/02/20 [Last Taken Unknown] pantoprazole 40 mg tablet,delayed release 40 mg PO DAILY #30 tab 08/02/20 [Last Taken Unknown] pravastatin 10 mg tablet 10 mg PO DAILY #30 tab 08/02/20 [Last Taken Unknown] sertraline 50 mg tablet 50 mg PO QAM #30 tab 08/02/20 [Last Taken Unknown] ferrous sulfate 325 mg (65 mg iron) tablet See Rx Instructions .ROUTE .COMPLEX #90 unknown measurement unit code: tablet 08/03/20 [Last Taken Unknown] metoprolol succinate 100 mg tablet,extended release 24 hr 150 mg PO QAM #135 tab 08/03/20 [Last Taken Unknown] - History of Present Illness Narrative: Patient presents to the ED for SOB by ambulance. He relates that he has been progressively SOB. He is on oxygen at home 5L mostly. He is profoundly SOB with any activity. No CP now, has some CP 2 days ago. Took NTG and that resolved. No pleuritic pain. Legs feel more swollen. No fever or increased cough. He couldn't take the SOB any longer so EMS called. Severity: moderate Treatment DIGITAL STRATEGIST SENIOR MANAGER: paramedics Initiating event: Reports: unknown Frequency of episodes: Reports: chronic episodes Modifying Factors - (Improves): Reports: oxygen Modifying Factors (Worsens): Reports: activity Associated Symptoms-Dyspnea: Reports: chest pain/discomfort. Denies: fever/chills Prior Treatment: Reports: recently seen. Denies: currently on antibiotics Review of Systems - Review of Systems Constitutional: Absent: fever EYE: Present: no symptoms reported ENT: Absent: sore throat Respiratory: Present: See HPI Cardiology: Present: See HPI Gastrointestinal/Abdominal: Absent: abdominal pain Genitourinary: Absent: dysuria All Other Systems: All systems neg except as marked Medical History (Last Reviewed 08/03/20 @ 19:42 by Yan Kurtz MD) Blurred vision, right eye (Acute) Right facial numbness (Acute) Worsening headaches (Acute) Memory impairment (Acute) Dependence on supplemental oxygen (Acute) Symptomatic bradycardia (Acute) Tachycardia-bradycardia syndrome (Acute) Malignant neoplasm of upper lobe, right bronchus or lung (Acute) Major depressive disorder (Acute) Generalized anxiety disorder with panic attacks (Acute) Urinary incontinence (Chronic) History of acute myocardial infarction (Acute) Edema (Resolved) Congestive heart failure with left ventricular dysfunction (Chronic) Steroid-induced hyperglycemia (Acute) Pickwickian syndrome (Chronic) Nocturnal hypoxemia (Acute) Can not tolerate CPAP or Bi-PAP. Sleeps well when in the hospital and on nasal cannula O2. Lower GI bleeding (Chronic) Colonic mass (Chronic) Nocturnal dyspnea (Chronic) Lightheadedness (Acute) Morbid obesity with body mass index (BMI) greater than or equal to 50 (Chronic) Patel is lost about 70 pounds. Lung mass (Chronic) Chronic kidney disease (CKD), stage IV (severe) (Chronic) Wound, open, breast (Acute) Dysuria-frequency syndrome (Acute) Morbid obesity with BMI of 50.0-59.9, adult (Chronic) Vascular insufficiency of limb (Acute) Left lower extremity Ischemic pain of left foot (Acute) Diabetic autonomic neuropathy associated with type 2 diabetes mellitus (Chronic) Feet are now anesthetic. Degenerative arthritis (Chronic) DDD (degenerative disc disease), lumbar (Chronic) Low back pain (Chronic) ESRD (end stage renal disease) (Chronic) Muscle spasm (Resolved) Possibly from the statin. Acute serous otitis media of left ear (Chronic) Has had decreased hearing and intermittent pain in the L ear for the past 1 month Morbid obesity with BMI of 60.0-69.9, adult (Chronic) IDDM (insulin dependent diabetes mellitus) (Chronic) Chronic pain syndrome (Chronic) BMI 60.0-69.9, adult (Chronic) Left breast abscess (Resolved) Original I&D on 06/12/2018 BMI 60.0-69.9, adult (Acute) Severe low back pain (Chronic) Essential hypertension (Chronic) Anemia Onset Date: Unknown Aortic valve sclerosis Onset Date: Unknown Cardiomegaly Onset Date: Unknown Cardiomyopathy Onset Date: Unknown Current tobacco use 1 ppd cigars Macular edema Moderate non-proliferative diabetic retinopathy No history of alcohol use Proteinuria Onset Date: ~03/29/13 Pseudophakia Onset Date: Unknown Sleep apnea Verrucae vulgaris Onset Date: Unknown CAD (coronary artery disease) Onset Date: Unknown Chronic GERD Onset Date: Unknown Chronic renal failure, stage 3 (moderate) Onset Date: Unknown Congestive heart failure (CHF) Onset Date: ~06/27/13 Diabetes mellitus Onset Date: ~04/04/17 Heart disease Onset Date: Unknown Hyperlipidemia due to dietary fat intake Onset Date: Unknown Hypertension Onset Date: Unknown Surgical History: Surgical History (Last Reviewed 08/03/20 @ 19:42 by Yan Kurtz MD) History of bunionectomy Right Hx of cardiac cath History of arthroplasty of right ankle History of esophagogastroduodenoscopy Onset Date: 04/19/13 Kayden; clotest negative. Gastritis History of incision and drainage Onset Date: 01/11/19 01/11/19 Kayden-left breast abscess Hx of arthroscopy of left knee Onset Date: Unknown x2 Hx of cataract extraction Onset Date: ~2017 bilateral Hx of colonoscopy with polypectomy Onset Date: 09/09/12 - sigmoid diverticulosis, healing anal fissure, normal colonic mucosa. Recheck in 10 years Hx of hernia repair As an infant; Right inguinal hernia Family History: Family History (Last Reviewed 08/03/20 @ 19:42 by Yan Kurtz MD) Father , age 67-colon cancer ca Diabetes Cancer Colon-dx age 65 and lung cancer Mother , age 73-unsure of cause Diabetes Hypertension Uncle Cancer (Paternal) Colon Cancer Grandmother Cancer (Paternal) Colon cancer Grandfather Cancer (Maternal) Colon Cancer Aunt Cancer (Paternal) Lung Cancer Brother Diabetes Hypertension Brother Alive and well Brother Alive and well Brother Alive and well Social History: (Last Reviewed 08/03/20 @ 19:42 by Yan Kurtz MD) Social History: Marital status: Single lives independently: Yes household members: none current occupational status: disabled Highest education level completed: 11th grade Service: No Tobacco: Smoking Status: Former smoker Smoking cigarettes per day: 1 how long ago did patient quit smokin months Alcohol: alcohol intake: never Substance Use: substance use type: does not use Dietary Habits: caffeine: Yes Type: coffee Personal Safety: victim of physical abuse: No victim of emotional abuse: No Physical Exam - Physical Exam General Appearance: Present: alert, other - chronically ill appearing, on oxygen. Head Exam: Present: normal inspection, no evidence of injury Eye Exam: Normal inspection: bilateral, PERRL: bilateral Ears, Nose, Throat: Present: normal ENT inspection Neck: Present: normal inspection Respiratory: Present: other - faint wheezes in darlene bases, diminished breath sounds. With any activity he becomes visibly SOB Cardiovascular/Chest: Present: normal peripheral pulses, irregularly irregular Gastrointestinal/Abdominal: Present: normal bowel sounds, nontender, soft Back Exam: Absent: CVA tenderness (R), CVA tenderness (L) Extremity Exam: Present: other - 3+ bilateral LE edema Neurological Exam: Present: alert, other - generalized weakness noted, no acute unilateral focal motor deficits Skin Exam: Present: normal color, warm/dry, pallor Progress - Results and Orders Patient's Lab Results:: I have reviewed the patient's lab results. - Vital Signs Patient's Vital Signs:: I have reviewed the patient's vital signs. Vital Signs: Vital Signs 08/03/20 17:22 08/03/20 17:31 08/03/20 19:30 Temperature 36.1 C Pulse Rate 91 91 109 H Respiratory Rate 16 Blood Pressure 140/88 O2 Sat by Pulse Oximetry 100 97 - EKG EKG #1 EKG: atrial fibrillation EKG read: Interp. by me EKG Comments: A fib RVR rate 91. Non-specific ST/T wave changes, no STEMI noted. Minimal change from prior - X-Ray X-Ray #1 X-Ray: chest Interpretation: Interp. by me X-ray Comments: No ral time radiology reads. I personally reviewed x-ray image. CHF, no pneumonia. - Progress/Reassessment Chief Complaint: Dyspnea Progress Note-Subjective: 08/03/20 19:46 Patient initially treated with IV steroids and Duoneb. After review of labs wheezing likely due to fluid overload so IV lasix given. D/W Dr Mcnamara who saw the patient in the ED and will admit the patient. Patient and family agreeable. Departure Clinical Impression: CHF exacerbation, Anemia, Failure of outpatient treatment, Renal insufficiency - Departure Disposition: Still a patient Condition: Fair Referrals: Ryan Isidro DO [Primary Care Provider] -
[2020-08-03] MEDS ORDERED: FUROSEMIDE 10 MG/ML VIAL ONE (20:20)
[2020-08-03] MEDS ORDERED: INSULIN GLARGINE,HUM.REC.ANLOG 100 UNITS/ML VIAL SC SCH ×2 (23:00)
[2020-08-03] MEDS ORDERED: INSULIN ASPART 100 UNITS/ML VIAL SC ONE (23:15)
[2020-08-03] MEDS ORDERED: INSULIN LISPRO 100 UNITS/ML VIAL SC SCH (23:45)
[2020-08-04] MEDS ORDERED: INSULIN LISPRO 100 UNITS/ML VIAL SC SCH (00:15)
[2020-08-04] MEDS: APIXABAN 5 MG TABLET PO SCH ×3 (01:02→21:48)
[2020-08-04] MEDS ORDERED: ACETAMINOPHEN 500 MG TABLET PO PRN ×2 (01:09→08:24)
[2020-08-04 06:44] LABS: Hematocrit 29.4 % (42.0-52.0); Hemoglobin 8.4 gm/dL (13.5-18.0); Mean Cell Volume 88.8 fl (78-100); Mean Corpuscular Hemoglobin 25.4 pg (27-31); Mean Corpuscular Hgb Conc 28.6 g/dl (32-36); Mean Platelet Volume 9.1 fl (8-11.3); Neutrophil # 12.8 K/mm3 (1.3-6.0); Neutrophil % 92.9 % (42-75.0); Platelet Count 300 K/mm3 (150-450); Red Blood Count 3.31 M/mm3 (4.7-6.0); Red Cell Distribution Width 21.3 % (11.5-14.0); White Blood Count 13.7 K/mm3 (4.0-10.5)
[2020-08-04 06:49] LABS: Anion Gap 8.4 mmol/L (6.8-13.8); BUN/Creatinine Ratio 38.4 (9.0-21.6); Bilirubin, Total 0.4 mg/dL (0.0-1.1); Ca. Corrected For Albumin 9.9 mg/dL (8.4-10.2); Calcium * 9.4 mg/dL (7.9-10.9); Carbon Dioxide 44.1 mmol/L (24-32.6); Potassium 3.5 mmol/L (3.4-4.6); Total Protein 7.6 gm/dL (6.2-8.2)
[2020-08-04] MEDS: SERTRALINE HCL 50 MG TABLET PO SCH (08:08)
[2020-08-04] MEDS: METOPROLOL SUCCINATE 50 MG TABLET.SA PO SCH (08:08)
[2020-08-04] MEDS: PANTOPRAZOLE SODIUM 40 MG TABLET.EC PO SCH (08:09)
[2020-08-04] MEDS: MIRTAZAPINE 15 MG TABLET PO SCH (08:09)
[2020-08-04] MEDS: FUROSEMIDE 10 MG/ML VIAL IV SCH (08:14)
[2020-08-04] MEDS: INSULIN LISPRO 100 UNITS/ML VIAL SC SCH ×4 (08:14→18:55)
[2020-08-04] MEDS ORDERED: MECLIZINE HCL 25 MG TABLET PO PRN (08:24)
[2020-08-04] MEDS ORDERED: NITROGLYCERIN 0.4 MG/TAB BTL SL PRN (08:24)
[2020-08-04] MEDS ORDERED: MORPHINE SULFATE 60 MG TABLET.SA PO PRN (08:24)
[2020-08-04] MEDS ORDERED: ALBUTEROL SULFATE 2.5 MG/0.5 ML VIAL.NEB IH PRN ×2 (08:24→15:44)
[2020-08-04] MEDS ORDERED: INSULIN ASPART 100 UNITS/ML VIAL SC SCH (09:00)
[2020-08-04] MEDS ORDERED: METOPROLOL SUCCINATE 100 MG TABLET.SA PO SCH ×2 (09:00)
[2020-08-04] MEDS ORDERED: INSULIN GLARGINE,HUM.REC.ANLOG 100 UNITS/ML VIAL SC SCH ×2 (09:00)
[2020-08-04] MEDS ORDERED: ROSUVASTATIN CALCIUM 10 MG TABLET PO SCH ×2 (09:00→21:00)
[2020-08-04] MEDS: METOLAZONE 5 MG TABLET PO SCH (10:38)
[2020-08-04] MEDS: FERROUS SULFATE 325 MG TABLET PO SCH (10:38)
[2020-08-04] MEDS: MAGNESIUM OXIDE 400 MG TABLET PO SCH (10:38)
--- NOTE | 2020-08-04 14:22 | PN ---
Subjective - Date and Time Seen Date: 08/04/20 Time: 12:40 Subjective Narrative: 59-year-old male with a past medical history of CAD, CHF, tobacco use, CKD stage IV, degenerative disc disease, diabetes mellitus type 2, hypertension, anxiety, lung mass, oxygen dependency on 4.5-5 L of oxygen, morbid obesity presents from home with complaints of worsening shortness of breath. In the emergency department he is found to have mild leukocytosis at 11.6, hemoglobin of 8.1, chest x-ray with vascular congestion. He was given 1 dose of Lasix 40 mg in the ER. He is being admitted for CHF exacerbation and symptomatic anemia. Guaiac stools pending. He presented to ER markedly dyspneic and tachypneic due to acute on chronic CHF. He was treated with diuretics, oxygen, and bronchodilation therapy. Chest x- ray is negative for pneumonia. He has a stable mass in the right chest that is a malignancy but has been treated with chemo and radiation and it is thought to be a tumor. He has severe chronic renal insufficiency stage IV. He takes huge amounts of diuretic with metolazone 5 mg at noon, furosemide 80 mg in the morning and late afternoon and still cannot keep the fluid off. He is a diabetic and ran out of his basal insulin. His blood sugars went to 3 50-500. He has had polyuria and polydipsia with that high blood sugar. Although he has been diuresed through the night he is only had a net loss of urine of 300 cc but actually has lost about 2 pounds if the weights are accurate. Difficult because of his body habitus. He is 176.1 kg this morning. I had a talk with him about his renal situation and that he needs to be being seen by a frog or oyster farmworker to which he is in agreement. I have discussed dialysis with him and it should come to that he would like to proceed with that. Therefore he is not ready for hospice at this point. He has had a previous stroke, has coronary artery disease and is frequently in the emergency room with chest pain and dyspnea. He is also seeing a ict analyst Dr. Ralph, and he has been coming to [place] to get IV Lasix once a week. And even with that we cannot keep the fluids off. He has been sleep deprived because he is urinating so much and has become very irritable and demanding at home. Although he is less dyspneic this morning he has not lost enough fluid to keep from getting in trouble when he goes home again. I have talked to him about fdc which she does not want to do but he also has [employer] insurance who is awful to work with in patients we try to place for skilled services. He will be staying tonight we will try to diurese him further. I am doing a 24-hour urine collection for total protein excretion and creatinine clearance in preparation for his nephrology appointment. That is scheduled for next Friday. Objective - Review of Systems Generalized/Overall Review: Reports: Weakness, Weight gain EENTM: Reports: No Symptoms Reported Respiratory: Reports: Shortness of Breath Cardiac: Reports: Chest Pain Abdominal: Reports: Other - Increased abdominal girth Genitourinary Symptoms: Reports: Polyuria Neurological: Reports: No Symptoms Reported Skin: Reports: Rash, Other - Blister areas on the calf Endocrine: Reports: No Symptoms Reported - Vitals Vitals: Last Vital Signs Temp 36.7 C 08/04/20 10:00 Pulse 109 H 08/04/20 10:00 Resp 14 08/04/20 10:00 BP 124/68 08/04/20 10:00 Pulse Ox 98 08/04/20 10:00 - Abnormal Lab Findings Abnormal Lab Findings: Abnormal Lab Results 08/03/20 08/03/20 08/04/20 Range/Units 18:20 18:20 06:30 WBC 11.6 H 13.7 H (4.0-10.5) K/mm3 RBC 3.17 L 3.31 L (4.7-6.0) M/mm3 Hgb 8.1 L 8.4 L (13.5-18.0) gm/dL Hct 28.9 L 29.4 L (42.0-52.0) % MCH 25.6 L 25.4 L (27-31) pg MCHC 28.0 L 28.6 L (32-36) g/dl RDW 21.2 H 21.3 H (11.5-14.0) % Immature Gran % (Auto) 0.50 H 0.90 H (0.001-0.429) % Immature Gran # (Auto) 0.06 H 0.12 H (0.000-0.0310) K/mm3 Neutrophils % 83.2 H 92.9 H (42-75.0) % Lymphocytes % 5.3 L 2.1 L (20-51) % Monocytes % 10.1 H (0.0-9) % Neutrophils # 9.7 H 12.8 H (1.3-6.0) K/mm3 Lymphocytes # 0.62 L 0.29 L (1.5-3.5) k/mm3 Monocytes # 1.2 H (0.0-1.0) k/mm3 Potassium 3.2 L (3.4-4.6) mmol/L Chloride 90 L (97-106) mmol/L Carbon Dioxide 45.0 H (24-32.6) mmol/L Anion Gap 4.2 L (6.8-13.8) mmol/L BUN 99 H (6-23) mg/dL Creatinine 2.49 H (0.4-1.4) mg/dL Est GFR (Non-Af Amer) 28 L (60-130) mL/min BUN/Creatinine Ratio 39.8 H (9.0-21.6) Random Glucose 165 H (70-110) mg/dL ALT 12 L (19-67) U/L B-Natriuretic Peptide 8016 H (5-175) pg/mL Albumin 3.1 L (3.4-5.0) gm/dl 08/04/20 Range/Units 06:30 WBC (4.0-10.5) K/mm3 RBC (4.7-6.0) M/mm3 Hgb (13.5-18.0) gm/dL Hct (42.0-52.0) % MCH (27-31) pg MCHC (32-36) g/dl RDW (11.5-14.0) % Immature Gran % (Auto) (0.001-0.429) % Immature Gran # (Auto) (0.000-0.0310) K/mm3 Neutrophils % (42-75.0) % Lymphocytes % (20-51) % Monocytes % (0.0-9) % Neutrophils # (1.3-6.0) K/mm3 Lymphocytes # (1.5-3.5) k/mm3 Monocytes # (0.0-1.0) k/mm3 Potassium (3.4-4.6) mmol/L Chloride 84 L (97-106) mmol/L Carbon Dioxide 44.1 H (24-32.6) mmol/L Anion Gap (6.8-13.8) mmol/L BUN 99 H (6-23) mg/dL Creatinine 2.58 H (0.4-1.4) mg/dL Est GFR (Non-Af Amer) 27 L (60-130) mL/min BUN/Creatinine Ratio 38.4 H (9.0-21.6) Random Glucose 391 H D (70-110) mg/dL ALT 15 L (19-67) U/L B-Natriuretic Peptide (5-175) pg/mL Albumin 3.0 L (3.4-5.0) gm/dl - EKG/Xray Findings EKG: atrial fibrillation EKG read: Interp. by me XRAY: chest Interpretation: Reviewed by me - Exam Constitutional: Present: Alert, Oriented x3, Cooperative, Well developed, Well nourished, Middle aged, Obese ENT Exam: Present: normal ENT inspection, hearing grossly normal, pharynx normal, TMs normal Neck: Present: non-tender, limited range of motion Breasts: Present: Exam deferred, Nontender Respiratory: Present: chest non-tender, decreased breath sounds, crackles Cardiovascular/Chest: Present: normal peripheral pulses, no chest tenderness, no JVD, no murmur, no rub, gallop/S4, edema Abdomen: Present: Normal bowel sounds, soft, nontender, obese, distended Extremity: Present: lower extremity edema, pedal edema, slow capillary refill, swelling Skin Exam: Present: pallor Lymphatic: Present: no adenopathy Neurologic: Present: restoration silversmith II-XII nml as tested, no motor/sensory deficits, normal mood/affect, oriented x 3 Eye contact: Present: cooperative, good eye contact, normal speech Thoughts: Present: normal thought pattern, no apparent hallucination Assessment/Plan Plan Narrative: 1. 24-hour urine collection for protein excretion and creatinine clearance 2. His blood sugar before lunch was 435. He received 30 units of Humalog and at 2 PM the blood sugar is down to 320. He is receiving another 20 units subcu at this time. He will have a blood sugar check before supper and will receive his next 30 units at that time. 3. Repeat morning labs with CBC and CMP 4. Dr. Chavez 2 cm care and discharge tomorrow if appropriate. - Problems/Diagnosis (1) CHF exacerbation Problem: Acute Qualifiers: Heart failure type: combined systolic and diastolic Qualified Code(s): I50.43 - Acute on chronic combined systolic (congestive) and diastolic (congestive) heart failure (2) Anemia Problem: Acute Qualifiers: Anemia type: due to chronic kidney disease Chronic kidney disease stage: stage 4 (severe) Qualified Code(s): N18.4 - Chronic kidney disease, stage 4 (severe); D63.1 - Anemia in chronic kidney disease (3) Failure of outpatient treatment Problem: Acute (4) Acute respiratory failure with hypoxia and hypercapnia Problem: Acute (5) Atrial fibrillation and flutter Problem: Chronic (6) Dependence on supplemental oxygen Problem: Chronic (7) History of acute myocardial infarction Problem: Chronic (8) Lightheadedness Problem: Chronic (9) Major depressive disorder Problem: Chronic Qualifiers: Major depression recurrence: single episode Active/Remission status: currently active Major depression episode severity: moderate Qualified Code(s): F32.1 - Major depressive disorder, single episode, moderate (10) Severe hyperglycemia due to diabetes mellitus Problem: Chronic (11) Chronic kidney disease (CKD), stage IV (severe) Problem: Chronic (12) Diabetic autonomic neuropathy associated with type 2 diabetes mellitus Problem: Chronic (13) Essential hypertension Problem: Chronic (14) Morbid obesity with BMI of 50.0-59.9, adult Problem: Chronic (15) History of lung cancer Problem: Inactive
[2020-08-04] MEDS ORDERED: INSULIN LISPRO 100 UNITS/ML VIAL SC ONE (14:34)
[2020-08-04] MEDS: ALBUTEROL SULFATE 2.5 MG/0.5 ML VIAL.NEB IH SCH ×2 (15:07→15:37)
[2020-08-04] MEDS: NICOTINE 7 MG PATC TD SCH (15:12)
[2020-08-04] MEDS ORDERED: LORazepam 2 MG/ML DISP.SYRIN IV ONE (16:38)
[2020-08-04] MEDS ORDERED: DEXTROSE 50%-WATER 50 ML SYRG IV ONE (18:48)
[2020-08-05] MEDS ORDERED: INSULIN GLARGINE,HUM.REC.ANLOG 100 UNITS/ML VIAL SC SCH (09:00)
[2020-08-05] MEDS: FERROUS SULFATE 325 MG TABLET PO SCH (09:48)
[2020-08-05] MEDS: APIXABAN 5 MG TABLET PO SCH (09:48)
[2020-08-05] MEDS: INSULIN LISPRO 100 UNITS/ML VIAL SC SCH (09:49)
[2020-08-05] MEDS: FUROSEMIDE 10 MG/ML VIAL IV SCH (09:51)
[2020-08-05] MEDS: MIRTAZAPINE 15 MG TABLET PO SCH (09:55)
[2020-08-05] MEDS: PANTOPRAZOLE SODIUM 40 MG TABLET.EC PO SCH (09:55)
[2020-08-05] MEDS: METOPROLOL SUCCINATE 50 MG TABLET.SA PO SCH (09:55)
[2020-08-05] MEDS: MAGNESIUM OXIDE 400 MG TABLET PO SCH (09:55)
[2020-08-05] MEDS: METOLAZONE 5 MG TABLET PO SCH (09:55)
[2020-08-05] MEDS: SERTRALINE HCL 50 MG TABLET PO SCH (09:56)
[2020-08-05] MEDS ORDERED: AZITHROMYCIN 500 MG in DEXTROSE 5 % IN WATER 250 ML IV ONE ×2 (12:21)
[2020-08-05 12:50] LABS: Hematocrit 29.9 % (42.0-52.0); Hemoglobin 8.4 gm/dL (13.5-18.0); Mean Cell Volume 91.2 fl (78-100); Mean Corpuscular Hemoglobin 25.6 pg (27-31); Mean Corpuscular Hgb Conc 28.1 g/dl (32-36); Mean Platelet Volume 8.7 fl (8-11.3); Neutrophil # 13.2 K/mm3 (1.3-6.0); Neutrophil % 88.5 % (42-75.0); Platelet Count 295 K/mm3 (150-450); Red Blood Count 3.28 M/mm3 (4.7-6.0); Red Cell Distribution Width 21.6 % (11.5-14.0); White Blood Count 14.9 K/mm3 (4.0-10.5)
[2020-08-05 13:04] LABS: Albumin * 3.3 gm/dl (3.4-5.0); Anion Gap 6.6 mmol/L (6.8-13.8); BUN/Creatinine Ratio 41.4 (9.0-21.6); Bilirubin, Total 0.3 mg/dL (0.0-1.1); Ca. Corrected For Albumin 9.6 mg/dL (8.4-10.2); Calcium * 9.4 mg/dL (7.9-10.9); Potassium 3.3 mmol/L (3.4-4.6); Total Protein 7.9 gm/dL (6.2-8.2)
[2020-08-05] MEDS: NICOTINE 7 MG PATC TD SCH (14:26)
[2020-08-05 14:29] LABS: Carbon Dioxide 46.7 mmol/L (24-32.6)
[2020-08-05] MEDS ORDERED: METHYLPREDNISOLONE SOD SUCC/PF 40 MG/ML VIAL IV ONE (16:10)
[2020-08-05] MEDS ORDERED: LORazepam 2 MG/ML DISP.SYRIN IV SCH (17:00)
[2020-08-05] MEDS ORDERED: INSULIN LISPRO 100 UNITS/ML VIAL SC SCH (17:00)
[2020-08-05] MEDS: ALBUTEROL SULFATE/IPRATROPIUM 3 ML NEBU IH SCH ×2 (17:04→17:59)
[2020-08-05] MEDS ORDERED: LORazepam 2 MG/ML DISP.SYRIN IV PRN (17:13)
[2020-08-05] MEDS ORDERED: METHYLPREDNISOLONE SOD SUCC/PF 40 MG/ML VIAL ONE ×2 (17:15→17:16)
[2020-08-05] MEDS ORDERED: FUROSEMIDE 10 MG/ML VIAL IV ONE (19:35)
--- NOTE | 2020-08-05 19:42 | ANES ---
Anesthesia Procedure Note Procedure Note: 08/05/2020 1915 p.m. Procedure: Endotracheal intubation Indications: Respiratory failure. Procedure: I was called to room 115 for a morbidly obese male patient whose condition is deteriorating while on BiPAP and is requiring an endotracheal tube prior to transfer. Mr. Blackwood was awake, I am not sure of his level of orientation as some of his comments did not sound appropriate in my brief conversation with him. As I prepared for the intubation I described to him what was about to take place, his only response was "you guys know what you are doing". He was preoxygenated with 100% oxygen and a rapid sequence intubation was performed using a glide scope with a #4 blade. He was given 5 mg of rocuronium IV followed by 14 mg of etomidate IV and finally succinylcholine 100 mg IV all with intermittent sterile saline flushes before and after each injection. As the medicine was being administered the head of his bed was placed in a supine position and when he grew apneic his larynx was visualized and a #7 endotracheal tube was passed with the cuff placed just beyond the vocal cords. There was immediate CO2 return by chemical monitor, his breath sounds were bilateral and equal albeit wheezing. His saturation was at 100% post procedurally. He appeared to tolerate the procedure well as there were no major swings in any of his vital signs.
[2020-08-05] MEDS ORDERED: PROPOFOL 1,000 MG/100 ML PIGGYBACK IV PRN (19:54)
[2020-08-05] MEDS ORDERED: MORPHINE SULFATE 10 MG/ML SYRG IV ONE (19:56)
--- NOTE | 2020-08-05 20:43 | DS ---
Transfer Discharge Summary - Diagnosis(s)/Problems (1) Acute respiratory failure with hypercapnia Problem: Acute (2) Acute respiratory acidosis Problem: Acute (3) Acute on chronic diastolic CHF (congestive heart failure) Problem: Acute (4) CKD (chronic kidney disease) stage 4, GFR 15-29 ml/min Problem: Acute (5) Pneumonia Problem: Resolved (6) History of lung cancer Problem: Inactive - Course Description of Stay: Patel is a 59 yo Morbidly obese male with chronic diastolic CHF and history of right lung cancer who was admitted for acute on chronic diastolic CHF. He is chronically on about 4lpm of oxygen but had recently been more short of breath. Chest xray suggested pulmonary congestion and he was admitted to be diuresed. He was having good diuresis and losing weight, but despite that this morning he became somnolent and a blood gas showed hypercapnea and respiratory acidosis. He had no oxygenation difficulties. His COVID19 testing was negative. He was placed on Bipap but despite adjustments his CO2 continued to rise above 100 and pH dropped to 7.28. Anesthesia was called for intubation and he will be transferred to [facility] for intensive cares that cannot be provided here. Procedures Performed: see notes below - Intubated 08/05 Procedures: 08/05/20 - Intubated - Results and Findings Results and Findings: Laboratory Results - last 24 hr 08/05/20 08/05/20 08/05/20 12:32 12:44 12:44 WBC 14.9 H RBC 3.28 L Hgb 8.4 L Hct 29.9 L MCV 91.2 MCH 25.6 L MCHC 28.1 L RDW 21.6 H Plt Count 295 MPV 8.7 Immature Gran % (Auto) 0.60 H Immature Gran # (Auto) 0.09 H Neutrophils % 88.5 H Lymphocytes % 2.9 L Monocytes % 7.8 Eosinophils % 0.1 Basophils % 0.1 Nucleated RBC % 0.0 Neutrophils # 13.2 H Lymphocytes # 0.43 L Monocytes # 1.2 H Eosinophils # 0.0 Absolute Basophils 0.0 pCO2 78.9 H* pO2 65.9 L HCO3 39.7 H Total CO2 42.2 H Base Excess 11.6 H ABG pH 7.32 L ABG O2 Sat (Measured) 90.3 L Sodium 138 Plasma Sodium 139 Potassium 3.3 L Chloride 88 L Carbon Dioxide 46.7 H Anion Gap 6.6 L BUN 113 H Creatinine 2.73 H Est GFR (Non-Af Amer) 25 L BUN/Creatinine Ratio 41.4 H Random Glucose 186 H D Calcium 9.4 Calcium Adj for Albumin 9.6 Total Bilirubin 0.3 AST 13 ALT 17 L Alkaline Phosphatase 93 Total Protein 7.9 Albumin 3.3 L SARS-CoV-2 (PCR) 08/05/20 08/05/20 08/05/20 12:50 15:40 16:40 WBC RBC Hgb Hct MCV MCH MCHC RDW Plt Count MPV Immature Gran % (Auto) Immature Gran # (Auto) Neutrophils % Lymphocytes % Monocytes % Eosinophils % Basophils % Nucleated RBC % Neutrophils # Lymphocytes # Monocytes # Eosinophils # Absolute Basophils pCO2 120.9 H* 90.1 H* pO2 27.8 L* 29.8 L* HCO3 51.2 H 39.4 H Total CO2 54.9 H 42.2 H Base Excess 20.1 H 10.4 H ABG pH 7.25 L 7.26 L ABG O2 Sat (Measured) 37.7 L 44.6 L Sodium Plasma Sodium Potassium Chloride Carbon Dioxide Anion Gap BUN Creatinine Est GFR (Non-Af Amer) BUN/Creatinine Ratio Random Glucose Calcium Calcium Adj for Albumin Total Bilirubin AST ALT Alkaline Phosphatase Total Protein Albumin SARS-CoV-2 (PCR) Not detected 08/05/20 08/05/20 17:38 18:38 WBC RBC Hgb Hct MCV MCH MCHC RDW Plt Count MPV Immature Gran % (Auto) Immature Gran # (Auto) Neutrophils % Lymphocytes % Monocytes % Eosinophils % Basophils % Nucleated RBC % Neutrophils # Lymphocytes # Monocytes # Eosinophils # Absolute Basophils pCO2 124.2 H* 102.0 H* pO2 36.2 L* 84.6 HCO3 52.0 H 46.3 H Total CO2 55.8 H 49.4 H Base Excess 20.8 H 16.5 H ABG pH 7.24 L 7.28 L ABG O2 Sat (Measured) 53.8 L 94.1 Sodium Plasma Sodium Potassium Chloride Carbon Dioxide Anion Gap BUN Creatinine Est GFR (Non-Af Amer) BUN/Creatinine Ratio Random Glucose Calcium Calcium Adj for Albumin Total Bilirubin AST ALT Alkaline Phosphatase Total Protein Albumin SARS-CoV-2 (PCR) - Medications Medications: Active Medications Albuterol/Ipratropium (Duoneb 2.5-0.5mg/3ml Soln) 3 ml IH Q6HRT [facility] Stop: 09/04/20 16:16 Last Admin: 08/05/20 17:59 Dose: 3 ml Documented by: Apixaban (Eliquis) 5 mg PO BID [facility] Stop: 09/02/20 21:01 Last Admin: 08/05/20 09:48 Dose: 5 mg Documented by: Ferrous Sulfate (Ferrous Sulfate) 325 mg PO DAILY [facility] Stop: 09/03/20 09:01 Last Admin: 08/05/20 09:48 Dose: 325 mg Documented by: Furosemide (Lasix) 40 mg IV DAILY [facility] Stop: 09/03/20 09:01 Last Admin: 08/05/20 09:51 Dose: 40 mg Documented by: Ceftriaxone Sodium 1,000 mg/ (Dextrose/Water) 100 mls @ 200 mls/hr IV Q24H [facility]; Protocol Stop: 09/04/20 12:31 Last Infusion: 08/05/20 14:08 Dose: Infused Documented by: Propofol (Diprivan 1000 Mg/100 Ml Piggyback) 1,000 mg in 100 mls @ 5.271 mls/hr IV TITR PRN; Protocol PRN Reason: Sedation Stop: 09/04/20 19:55 Last Admin: 08/05/20 20:15 Dose: 5 mcg/kg/min, 5.271 mls/hr Documented by: Insulin Glargine (Lantus) 100 units SC DAILY [facility] Stop: 09/03/20 09:01 Last Admin: 08/05/20 09:50 Dose: 100 units Documented by: Insulin Human Lispro (Humalog) 15 units SC ONCE [facility] Stop: 09/03/20 00:16 Last Admin: 08/04/20 01:02 Dose: 15 units Documented by: Insulin Human Lispro (Humalog) 30 units SC AC [facility] Stop: 09/04/20 17:01 Last Admin: 08/05/20 17:33 Dose: Not Given Documented by: Magnesium Oxide (Mag-Ox 400) 400 mg PO DAILY [facility] Stop: 09/03/20 09:01 Last Admin: 08/05/20 09:55 Dose: 400 mg Documented by: Metolazone (Zaroxolyn) 5 mg PO DAILY [facility] Stop: 09/03/20 09:01 Last Admin: 08/05/20 09:55 Dose: 5 mg Documented by: Metoprolol Succinate (Toprol Xl) 150 mg PO QAM [facility] Stop: 09/03/20 09:01 Last Admin: 08/05/20 09:55 Dose: 150 mg Documented by: Mirtazapine (Remeron) 15 mg PO DAILY [facility] Stop: 09/03/20 09:01 Last Admin: 08/05/20 09:55 Dose: 15 mg Documented by: Morphine Sulfate (Ms Contin) 60 mg PO Q12H PRN PRN Reason: Pain Stop: 09/03/20 08:25 Last Admin: 08/04/20 16:14 Dose: 60 mg Documented by: Nicotine (Nicoderm) 7 mg TD Q24H [facility] Stop: 09/03/20 14:46 Last Admin: 08/05/20 14:26 Dose: 7 mg Documented by: Pantoprazole Sodium (Protonix) 40 mg PO DAILY [facility] Stop: 09/03/20 09:01 Last Admin: 08/05/20 09:55 Dose: 40 mg Documented by: Rosuvastatin Calcium (Crestor) 5 mg PO HS [facility] Stop: 09/03/20 21:01 Last Admin: 08/04/20 21:49 Dose: 5 mg Documented by: Sertraline HCl (Zoloft) 50 mg PO QAM [facility] Stop: 09/03/20 09:01 Last Admin: 08/05/20 09:56 Dose: 50 mg Documented by: Discontinued Medications Acetaminophen (Tylenol) 500 mg PO Q6H PRN PRN Reason: Mild pain (pain scale 1-3) Stop: 09/03/20 01:10 Last Admin: 08/04/20 02:58 Dose: 500 mg Documented by: Albuterol Sulfate (Albuterol Sulfate 2.5 Mg/0.5ml) 2.5 mg IH TIDRT [facility] Stop: 09/03/20 09:01 Last Admin: 08/04/20 15:37 Dose: Not Given Documented by: Albuterol/Ipratropium (Duoneb 2.5-0.5mg/3ml Soln) 3 ml IH ONCE ONE Stop: 08/03/20 18:03 Last Admin: 08/03/20 19:30 Dose: 3 ml Documented by: Dextrose/Water (Dextrose 50%/Water Syringe) 25 ml IV ONCE ONE Stop: 10/16/20 18:49 Last Admin: 08/04/20 18:52 Dose: 25 ml Documented by: Furosemide (Lasix) 40 mg IV ONCE ONE Stop: 08/03/20 19:08 Last Admin: 08/03/20 20:24 Dose: 40 mg Documented by: Furosemide (Lasix) 80 mg IV ONCE ONE Stop: 08/05/20 19:36 Last Admin: 08/05/20 20:20 Dose: 80 mg Documented by: Azithromycin 500 mg/ Dextrose/ (Water) 250 mls @ 250 mls/hr IV ONCE ONE; Protocol Stop: 08/05/20 13:20 Last Infusion: 08/05/20 15:23 Dose: Infused Documented by: Insulin Aspart (Novolog) 10 units SC ONCE ONE Stop: 08/03/20 23:16 Last Admin: 08/04/20 01:36 Dose: Not Given Documented by: Insulin Glargine (Lantus) 100 units SC HS [facility] Stop: 09/02/20 23:01 Last Admin: 08/03/20 22:53 Dose: Not Given Documented by: Insulin Glargine (Lantus) 100 units SC DAILY [facility] Stop: 09/03/20 09:01 Last Admin: 08/04/20 08:12 Dose: 100 units Documented by: Insulin Human Lispro (Humalog) 30 units SC TIDWM [facility] Stop: 09/03/20 09:01 Last Admin: 08/04/20 12:11 Dose: 30 units Documented by: Insulin Human Lispro (Humalog) 30 units SC TIDWM [facility] Stop: 09/03/20 09:01 Last Admin: 08/05/20 09:49 Dose: 30 units Documented by: Insulin Human Lispro (Humalog) 20 units SC ONCE ONE Stop: 08/04/20 14:35 Last Admin: 08/04/20 14:45 Dose: 20 units Documented by: Lorazepam (Ativan) 1 mg IV ONCE ONE Stop: 08/04/20 16:39 Last Admin: 08/04/20 16:45 Dose: 1 mg Documented by: Lorazepam (Ativan) 1 mg IV Q4H [facility] Stop: 09/04/20 17:01 Last Admin: 08/05/20 17:30 Dose: Not Given Documented by: Methylprednisolone Sodium Succinate (Solu-Medrol) 80 mg IV ONCE ONE Stop: 08/03/20 18:03 Last Admin: 08/03/20 18:32 Dose: 80 mg Documented by: Methylprednisolone Sodium Succinate (Solu-Medrol) 120 mg IV ONCE ONE Stop: 08/05/20 16:11 Last Admin: 08/05/20 17:22 Dose: 120 mg Documented by: Morphine Sulfate (Morphine Sulfate) 5 mg IV ONCE ONE Stop: 08/05/20 19:57 Last Admin: 08/05/20 20:02 Dose: 5 mg Documented by: (Rivastigmine 9.5 Mg ()) 9.5 mg TP DAILY [facility] Stop: 09/03/20 09:01 Last Admin: 08/05/20 09:55 Dose: Not Given Documented by: - Disposition Disposition: Short Term Hospital Inpatient Condition: Poor Discharge Date: 08/05/20 Discharge Time: 20:42
[2020-08-05 21:27] VITALS: BP 103/71
[2020-08-05 22:05] LABS: Serum Creatinine 2.7 mg/dl (0.4-1.4)
[2020-08-06] MEDS ORDERED: AZITHROMYCIN 500 MG in DEXTROSE 5 % IN WATER 250 ML IV SCH ×2 (09:00)
== END 2020-08-05 20:55 | disposition short-term general hospital (02) | DRG 208 ==
LOC: MS 17:22 → ER 17:22 → OBSVTOIN 19:38 → MS 20:40
PROVIDERS: ADMIT Internal Medicine; ATTEND Family Medicine
DX: Z99.81 Dependence on supplemental oxygen; Z79.4 Long term (current) use of insulin; E11.65 Type 2 diabetes mellitus with hyperglycemia; F33.1 Major depressive disorder, recurrent, moderate; Z87.891 Personal history of nicotine dependence; J96.02 Acute respiratory failure with hypercapnia; I48.91 Unspecified atrial fibrillation; E87.2 Acidosis; M51.36 Other intervertebral disc degeneration, lumbar region; Z86.73 Personal history of transient ischemic attack (TIA), and cerebral infarction without residual deficits; D64.9 Anemia, unspecified; E11.22 Type 2 diabetes mellitus with diabetic chronic kidney disease; E11.43 Type 2 diabetes mellitus with diabetic autonomic (poly)neuropathy; I25.10 Atherosclerotic heart disease of native coronary artery without angina pectoris; N18.4 Chronic kidney disease, stage 4 (severe); I13.0 Hypertensive heart and chronic kidney disease with heart failure and stage 1 through stage 4 chronic kidney disease, or unspecified chronic kidney disease; I50.33 Acute on chronic diastolic (congestive) heart failure; Z68.43 Body mass index [BMI] 50.0-59.9, adult; J96.01 Acute respiratory failure with hypoxia; J18.9 Pneumonia, unspecified organism; E66.01 Morbid (severe) obesity due to excess calories; Z85.118 Personal history of other malignant neoplasm of bronchus and lung